=== PATIENT | male | born 1935 | race Caucasian/White ===

== ENCOUNTER 2020-01-18 06:24 | Outpatient (CLI) | payer MEDICARE, OTHER, SELFPAY ==
[2020-01-18 16:20] LABS: SARS-CoV-2 RNA PCR Negative
== END 2020-01-18 06:25 | disposition home or self-care (01) ==
LOC: ANHCOVIDDT 06:26
PROVIDERS: PCP Internal Medicine; Visit Provider Internal Medicine Gastroenterology
DX: Z01.818 Encounter for other preprocedural examination (principal); Z11.59 Encounter for screening for other viral diseases; R19.4 Change in bowel habit
CPT/HCPCS: 87635; C9803; U0003

== ENCOUNTER 2020-01-21 00:06 | Day surgery (SDC) | payer MEDICARE, OTHER, SELFPAY ==
[2020-01-16 09:10] VITALS: BMI 27.4
[2020-01-21] MEDS: LACTATED RINGERS 1,000 ML 150 ML IV CONT (06:23)
[2020-01-21 06:32] VITALS: BP 134/104; PULSE 62; RESP 16; TEMP 36.8; O2SAT 99
--- NOTE | 2020-01-21 06:46 | WPDANESEPPF ---
Anes - Initial Pre Proc Eval Procedure: Operation Date: 01/21/20 07:30 Proposed Procedures p Colonoscopy - Trace Silva MD Date/Time: 01/21/20 06:46 Surgeon: Trace Silva MD Pre Op Diagnosis: CHANGE IN BOWEL HABITS, HISTORY OF COLON POLYPS Patient Data Age: 84 Gender: M Height: 5 ft 8 in Weight: 81 kg Last Vital Signs Temp 36.8 C 01/21/20 06:32 Pulse 62 01/21/20 06:32 Resp 16 01/21/20 06:32 BP 134/104 H 01/21/20 06:32 Pulse Ox 99 01/21/20 06:32 Allergies Allergy/AdvReac Type Severity Reaction Status Date / Time No Known Allergies Allergy Verified 01/16/20 09:01 Home Medications Medication Instructions Recorded Confirmed Type aspirin 81 mg tablet,delayed 81 mg PO DAILY 09/03/19 01/16/20 History release losartan 100 1 tablet PO DAILY 09/03/19 01/16/20 History mg-hydrochlorothiazide 12.5 mg tablet mecobalamin (vitamin B12) 1,000 1,000 mcg SUBLINGUAL DAILY 09/03/19 01/21/20 History mcg disintegrating tablet,sublingual zolpidem 10 mg tablet PO PRN 09/03/19 09/11/19 History latanoprost 0.005 % eye drops 1 drop EACH EYE DAILY 09/11/19 01/16/20 History pravastatin 40 mg tablet 40 mg PO DAILY 09/11/19 01/16/20 History vit C 250 mg-E 200 unit-zinc 40 1 tablet PO DAILY cap 09/11/19 01/16/20 History mg-copper 1 pe-mdduzb-eydgle capsule Patient hx anesthesia problems: none Family hx anesthesia problems: none PMFSH Past Medical History Medical History Essential hypertension Hypercholesteremia Lightheadedness Right bundle branch block Sinus bradycardia TIA (transient ischemic attack) Surgical History Surgical History History of ear surgery History of tonsillectomy S/P TURP Family History Family History Other Hypertension Social History Social History Smoking status: Never smoker Alcohol intake: current Gender identity (if verbalized by the patient): Male Anes - Eval Final PreProcedure Day of Procedure 01/21/20 06:46 Patient weight: overweight Heart: regular rate and rhythm Lungs: clear to auscultation Airway: Mallampati scale class II Neurological: alert and oriented Last oral intake: >/= 8 hours ASA classification: III Emergent: no Anesthetic plan: proceed Anesthesia type and monitoring: general GIVS and standard monitoring Informed Consent: The patient's anesthetic plan and its attendant risks and benefits were discussed with the patient/family/POA. Questions were solicited and answers provided to the satisfaction of the patient/family/POA.
--- NOTE | 2020-01-21 07:23 | WPDGICN ---
Assessment and Plan Assessment and plan (1) Encounter for diagnostic colonoscopy due to change in bowel habits: Code(s): R19.4 - Change in bowel habit Status: Acute Assessment and Plan: Plan is for colonoscopy to assess change in bowel habits. Stool softeners and laxatives are occurred in the interim period (2) History of colon polyps: Code(s): Z86.010 - Personal history of colonic polyps Status: Acute Assessment and Plan: colonoscopy will be performed to assess for recurrent colon polyps. (3) Essential hypertension: Code(s): I10 - Essential (primary) hypertension Status: Acute GI Consult Note Consult date/time: 01/21/20 07:23 HPI: Shamar Hagen is a 84 year old male Seen in evaluation at the request of Dr. Yazan Beltre. Patient reports a 6 month difficulty with bowel habits. He states he has to strain. He notices a decreased caliber in the size of his stools. He denies any bleeding. His weight has remained stable. Stool caliber is less. Patient's past history is significant for colon polyps in approximately 2013. Patient's family history is noncontributory. Past history is significant for elevated cholesterol. In hypertension. Recent lab work revealed very mild normochromic normocytic anemia. Review of Systems Review of Systems: All systems reviewed & are unremarkable except as noted in HPI and below PMFSH Past Medical History Medical History Essential hypertension Hypercholesteremia Lightheadedness Right bundle branch block Sinus bradycardia TIA (transient ischemic attack) Surgical History Surgical History History of ear surgery History of tonsillectomy S/P TURP Family History Family History Other Hypertension Social History Social History Smoking status: Never smoker Alcohol intake: current Gender identity (if verbalized by the patient): Male Meds Home Medications and Allergies Home Medications Medication Instructions Recorded Confirmed Type aspirin 81 mg tablet,delayed 81 mg PO DAILY 09/03/19 01/16/20 History release losartan 100 1 tablet PO DAILY 12/23/19 05/06/20 History mg-hydrochlorothiazide 12.5 mg tablet mecobalamin (vitamin B12) 1,000 1,000 mcg SUBLINGUAL DAILY 09/03/19 01/21/20 History mcg disintegrating tablet,sublingual zolpidem 10 mg tablet PO PRN 09/03/19 09/11/19 History latanoprost 0.005 % eye drops 1 drop EACH EYE DAILY 09/11/19 01/16/20 History pravastatin 40 mg tablet 40 mg PO DAILY 09/11/19 01/16/20 History vit C 250 mg-E 200 unit-zinc 40 1 tablet PO DAILY cap 09/11/19 01/16/20 History mg-copper 1 si-ijgkxa-bphvme capsule Allergies Allergy/AdvReac Type Severity Reaction Status Date / Time No Known Allergies Allergy Verified 01/16/20 09:01 Vital Signs Vital Signs - 24 hr 01/21/20 06:32 Temperature 36.8 C Pulse Rate 62 Respiratory Rate 16 Blood Pressure 134/104 H Pulse Oximetry 99 Exam Narrative: Exam Narrative: Physical exam reveals Vital Signs to be stable. HEENT exam unremarkable. He is anicteric. Lungs are clear to auscultation and percussion. Heart is without murmur or extra sounds. Abdominal exam bowel sounds are present soft nontender with no hepatosplenomegaly. Digital external rectal exam normal.
[2020-01-21 07:46] VITALS: BP 93/47; PULSE 56; RESP 14; O2SAT 99
[2020-01-21 07:55] VITALS: BP 113/56; PULSE 49; RESP 18; O2SAT 97
[2020-01-21 08:08] VITALS: BP 127/58; PULSE 48; RESP 16; O2SAT 100
== END 2020-01-21 08:30 | disposition home or self-care (01) ==
PROVIDERS: PCP Internal Medicine; Visit Provider Internal Medicine Gastroenterology
PROC: 0DJD8ZZ Inspection of Lower Intestinal Tract, Via Natural or Artificial Opening Endoscopic (ICD-10-PCS; CPT 45378; principal; 2020-01-21 07:30)
DX: R19.4 Change in bowel habit (principal); K57.30 Diverticulosis of large intestine without perforation or abscess without bleeding; K64.8 Other hemorrhoids; Z86.010 Personal history of colon polyps; I10 Essential (primary) hypertension; E78.00 Pure hypercholesterolemia, unspecified; I45.10 Unspecified right bundle-branch block; Z86.73 Personal history of transient ischemic attack (TIA), and cerebral infarction without residual deficits; Z79.82 Long term (current) use of aspirin
CPT/HCPCS: 45378; J2405; J2704; J7120

== ENCOUNTER 2020-04-15 12:28 | Outpatient (CLI) | payer MEDICARE, OTHER, SELFPAY ==
--- NOTE | ~2020-04-15 | US_ITS ---
EXAMINATION: US carotid duplex BI EXAM DATE: 04/15/2020 13:16 INDICATION: Carotid bruit. TECHNIQUE: Grayscale, color and pulsed Doppler images of the cervical carotid arteries were obtained . The degree of vessel stenosis is placed in one of the following categories: normal, <50% stenosis, 50-69% stenosis, >=70% stenosis but less than near-occlusion, near-occlusion, or occlusion. Note that percent stenosis relative to normal distal artery lumen diameter is indirectly measured from velocit y measurements as described by Rakesh, et al. Radiology 2003; 229:340-346. Comparison is made to prior examination from 03/10/2019. FINDINGS: RIGHT SIDE: Right common carotid artery peak systolic velocity (PSV in cm/s): 116 Right bulb/internal carotid artery peak systolic velocity (PSV in cm/s): 132 Right internal carotid artery end diastolic velocity (EDV in cm/s): 21 Right ICA/CCA peak systolic ratio: 1.1 Right external carotid artery peak systolic velocity (PSV in cm/s): 165 Right vertebral artery antegrade flow: yes There is minimal carotid bulb plaque. Velocity and Doppler waveforms in the common and internal carotid arteries is normal. LEFT SIDE: Left common carotid artery peak systolic velocity (PSV in cm/s): 123 Left bulb/internal carotid artery peak systolic velocity (PSV in cm/s): 116 Left internal carotid artery end diastolic velocity (EDV in cm/s): 14 Left ICA/CCA peak systolic ratio: 0.9 Left external carotid artery peak systolic velocity (PSV in cm/s): 114 Left vertebral artery antegrade flow: yes There is minimal carotid bulb plaque. Velocity and Doppler waveforms in the common and internal carotid arteries is normal. IMPRESSION: 1. Less than 50 percent stenosis in the right internal carotid artery. 2. Less than 50 percent stenosis in the left internal carotid artery. Reviewed, dictated and finalized at location A.
== END 2020-04-15 12:29 | disposition home or self-care (01) ==
PROVIDERS: PCP Internal Medicine; Visit Provider Psychiatry & Neurology Neurology
DX: R09.89 Other specified symptoms and signs involving the circulatory and respiratory systems (principal); I65.23 Occlusion and stenosis of bilateral carotid arteries
CPT/HCPCS: 93880

== ENCOUNTER 2021-03-28 12:36 | Outpatient (CLI) | payer MEDICARE, OTHER, SELFPAY ==
--- NOTE | ~2021-03-28 | MR_ITS ---
EXAMINATION: MR brain/brain stem wo con EXAM DATE: 03/28/2021 13:39 INDICATION: H53.461 - Homonymous bilateral field defects, right side. TECHNIQUE: Magnetic resonance imaging (MRI) of the brain/brain stem obtained without contrast. Chas al T1, axial diffusion, gradient echo (T2*), T1, T2, FLAIR sequences obtained. Comparison is made to prior examination from 03/13/2019. FINDINGS: Optic chiasm, pituitary gland and suprasellar region unremarkable. There are no areas of re stricted diffusion to suggest acute infarction. There is no acute hemorrhage seen on the T2*, a hemo siderin sensitive sequence. No intraparenchymal brain mass lesion. There is mild to moderate periven tricular and subcortical T2/FLAIR signal hyperintensity, nonspecific but probably related to small ve ssel ischemic disease (microangiopathy). Some dilated perivascular spaces in the basal ganglia. Ther e is mild prominence of the sulci and ventricles related to cerebral atrophy. There are no extra-ax ial collections. Flow voids are seen in the cerebral arteries on the T2-weighted sequences consisten t with their expected patency. Patient has had bilateral ocular lens surgery. Soft tissue is unrema rkable. IMPRESSION: 1. No acute intracranial findings. 2. Chronic age related findings. Reviewed, dictated and finalized at location A.
== END 2021-03-28 12:37 | disposition home or self-care (01) ==
LOC: ANHIMG 12:37
PROVIDERS: PCP Internal Medicine; Visit Provider Psychiatry & Neurology Neurology
DX: H53.461 Homonymous bilateral field defects, right side (principal)
CPT/HCPCS: 70551

== ENCOUNTER 2023-03-02 13:30 | Outpatient (CLI) | payer MEDICARE, OTHER, SELFPAY ==
--- NOTE | 2023-03-02 13:33 | ECHO_ITS ---
Patient Info Name: Shamra Hagen Age: 87 years : 1935 Gender: Male Ht: 68 in Wt: 167 lbs BSA: 1.92 m2 HR: 54 bpm BP: 144 / 67 mmHg Heart Rhythm: Bradycardia Technical Quality: Good Exam Date: 03/02/2023 1:41 PM Exam Location: [facility] Pulmonary Patient Status: Outpatient Admit Date: 03/02/2023 Staff Ordering Physician: Yeni Gerber PA-C Specialist Managers: Nikki Brian RDCS Attending Provider: Yeni Gerber PA-C Referring Physician: Zabrina MCKEON; Exam Type: CA echo doppler color flow Study Info Indications - obstructive sleep apnea , dizziness and giddiness Complete two-dimensional, color flow and Doppler transthoracic echocardiogram is performed. Summary 1. Complete two-dimensional, color flow and Doppler transthoracic echocardiogram is performed. 2. Left ventricular chamber dimension is normal. 3. Left ventricular systolic function is hyperdynamic, estimated at >70%. 4. There is mild concentric increased left ventricular wall thickness. 5. The left ventricular diastolic function is grade I diastolic dysfunction. 6. E/e' 11 is mildly elevated. 7. Left atrial chamber dimension is mildly enlarged. 8. There is mild aortic valve sclerosis. 9. The mitral valve has mildly calcified leaflets and moderately calcified annulus. 10. There is mild tricuspid valve regurgitation. 11. No pulmonary hypertension, estimated pulmonary arterial systolic pressure is 28 mmHg. Left Ventricle E/e' 11 is mildly elevated. Left ventricular chamber dimension is normal. Left ventricular systolic function is hyperdynamic, estimated at >70%. There is mild concentric increased left ventricular wall thickness. The left ventricular diastolic function is grade I diastolic dysfunction. Right Ventricle Right ventricular systolic function is normal and with normal TAPSE 2.6 cm. Right ventricular chamber dimension is normal. Left Atria Left atrial chamber dimension is mildly enlarged. Right Atria Right atrial chamber dimension is normal. Aortic Valve The aortic valve is trileaflet. There is mild aortic valve sclerosis. There is no aortic valve stenosis. There is no aortic valve regurgitation. Pulmonic Valve There is no pulmonic regurgitation. Mitral Valve The mitral valve has mildly calcified leaflets and moderately calcified annulus. There is no mitral valve stenosis. There is no mitral valve regurgitation. Tricuspid Valve There is mild tricuspid valve regurgitation. No pulmonary hypertension, estimated pulmonary arterial systolic pressure is 28 mmHg. Pericardium/Pleural There is no pericardial effusion. Inferior Vena Cava Normal inferior vena cava with >50% collapse upon inspiration consistent with normal right atrial pressure, 5 mmHg. Aorta The aortic root size at the sinus of Valsalva is normal. Left Ventricular Outflow Tract Name Value Normal LVOT 2D LVOT Diameter 2.1 cm LVOT Doppler LVOT Peak Gradient 8 mmHg LVOT Mean Gradient 4 mmHg LVOT VTI 36 cm LVOT VTI/AV VTI Ratio 0.9 LVOT Stroke Volume 130 ml LVOT CO
--- NOTE | 2023-03-08 16:08 | WPDHOLTEREM ---
Holter/Event Monitor Holter/Event Monitor Date of procedure: 03/02/23 Holter/Event Procedure: 48 Hr Holter Monitor Indications: Dizziness Conclusion: 1. 48 hour holter monitor on 03/02/23. 2. Underlying rhythm is sinus rhythm. HR range 40-92 bpm; average 52 bpm. HR at 40 bpm was at 02:17. 3. There are 546 premature supraventricular complexes and 175 supraventricular couplets. No supraventricular tachycardia. 4. There are 2 premature ventricular complexes. No ventricular tachycardia. 5. No sinoatrial or atrioventricular blocks. No significant pauses greater than 2 seconds. 6. Patient reports symptoms of dizziness and unsteady which demonstrate sinus rhythm, HR range 52-58 bpm and 1 PAC.
== END 2023-03-02 13:31 | disposition home or self-care (01) ==
LOC: ANHCARD 13:30
PROVIDERS: PCP Physician Assistant Medical; Visit Provider Physician Assistant Medical
DX: D64.9 Anemia, unspecified (principal); R42 Dizziness and giddiness; G47.33 Obstructive sleep apnea (adult) (pediatric); I36.1 Nonrheumatic tricuspid (valve) insufficiency
CPT/HCPCS: 93225; 93226; 93306

== ENCOUNTER 2024-03-27 02:17 | Inpatient (IN) | payer MEDICARE, OTHER, SELFPAY ==
[2024-03-27] VITALS (13 sets, daily range): BP systolic 127–169; BP diastolic 43–64; PULSE 55–67; RESP 16–24; TEMP 36.2–36.7; O2SAT 95–100; BMI 25.8
--- NOTE | 2024-03-27 | ECHO_ITS ---
Patient Info Name: Shamar Hagen Age: 88 years : 1935 Gender: Male Ht: 68 in Wt: 169 lbs BSA: 1.93 m2 HR: 65 bpm BP: 145 / 61 mmHg Heart Rhythm: Sinus Rhythm Technical Quality: Fair Exam Date: 03/27/2024 12:50 PM Exam Location: Echo Lab Patient Status: Outpatient Admit Date: 03/27/2024 Staff Ordering Physician: Carlotta Cabral APRN Gaming Pit Boss: Radha Roche RDCS Attending Provider: Carlotta Cabral APRN Referring Physician: Misha SAMANO; Exam Type: CA echo dop color flow w con Study Info Indications - NSTEMI Complete two-dimensional, color flow and Doppler transthoracic echocardiogram is performed with contrast to opacify the left ventricle and to improve the deliniation of the left ventricle endocardial borders. Contrast/Agitated Saline Contrast/Ag. Saline: Definity Amount: 3.00 ml Summary 1. Definity contrast administered improved wall motion interpretation. 2. Left ventricular chamber dimension is normal. 3. Left ventricular systolic function is normal, estimated at 60-65%. 4. There is mild concentric increased left ventricular wall thickness. 5. The left ventricular diastolic function is abnormal. 6. E/e' 10 is mildly elevated. 7. There is moderate aortic valve sclerosis. 8. The mitral valve has severely calcified annulus and mildly calcified leaflets. 9. No pulmonary hypertension, estimated pulmonary arterial systolic pressure is 15 mmHg. Left Ventricle Definity contrast administered improved wall motion interpretation. E/e' 10 is mildly elevated. Left ventricular chamber dimension is normal. Left ventricular systolic function is normal, estimated at 60-65%. There is mild concentric increased left ventricular wall thickness. The left ventricular diastolic function is abnormal. Right Ventricle Right ventricular systolic function is normal and with normal TAPSE 2.3 cm. Right ventricular chamber dimension is normal. Left Atria Left atrial chamber dimension is normal. Right Atria Right atrial chamber dimension is normal. Aortic Valve The aortic valve is trileaflet. There is moderate aortic valve sclerosis. There is no aortic valve stenosis. There is no aortic valve regurgitation. Pulmonic Valve There is no pulmonic regurgitation. Mitral Valve The mitral valve has severely calcified annulus and mildly calcified leaflets. There is no mitral valve stenosis. There is no mitral valve regurgitation. Tricuspid Valve There is no tricuspid valve regurgitation. No pulmonary hypertension, estimated pulmonary arterial systolic pressure is 15 mmHg. Pericardium/Pleural There is no pericardial effusion. Inferior Vena Cava Normal inferior vena cava with >50% collapse upon inspiration consistent with normal right atrial pressure, 5 mmHg. Aorta The aortic root size at the sinus of Valsalva is normal. Left Ventricular Outflow Tract Name Value Normal LVOT 2D LVOT Diameter 2.01 cm LVOT Doppler LVOT Peak Gradient 4 mmHg LVOT Mean Gradient 2 mmHg LVOT VTI 28.86 cm LVOT VTI/AV VTI Ratio 1.19 LVOT Stroke Volu
--- NOTE | ~2024-03-27 | MR_ITS ---
EXAMINATION: MR brain/brain stem wo con DATE: 03/27/2024 16:35 INDICATION: Transient ischemic episode versus stroke TECHNIQUE: Magnetic resonance imaging (MRI) of the brain and brainstem was performed without intraven ous contrast. Sequences included sagittal and axial T1-weighted SE, axial diffusion-weighted FS SE, a xial 3D SWAN, axial T2-weighted FLAIR, and axial T2-weighted FSE. Apparent diffusion coefficient (ADC ) maps were created. COMPARISON: Brain MR dated 03/28/2021 FINDINGS: There are small areas of restricted diffusion at the medial aspect of the right cerebellar hemisphere and lateral aspect of the left cerebellar hemisphere consistent with acute infarcts. No intracranial hemorrhage or abnormal intracranial mass lesion. There are scattered areas of nonspecific increased T2-weighted signal intensity in the cerebral white matter, predominantly involving the deep and periv entricular white matter. There are no intraparenchymal signal abnormalities seen on the other pulse s equences. Symmetric prominence of the sulci and ventricles consistent with mild age-appropriate diffuse cerebra l volume loss. There are no abnormal extra-axial fluid collections. Flow voids are seen in the cerebr al arteries on the T2-weighted sequences consistent with their expected patency. Changes of bilateral intraocular lens replacement. Visualized orbits and soft tissues are unremarkable. Mild mucosal thic kening the bilateral ethmoid sinuses with mucous retention cyst along the medial wall the right maxil livia sinus. IMPRESSION: 1. Small acute infarcts in the bilateral cerebellar hemispheres. 2. Interval progression of age-related changes including mild diffuse volume scattered periventricula r predominant nonspecific white matter T2 hyperintensity consistent with chronic small vessel ischemi c disease. Reviewed, dictated and finalized at location A. IMPRESSION: 1. Small acute infarcts in the bilateral cerebellar hemispheres. 2. Interval progression of age-related changes including mild diffuse volume sc attered periventricular predominant nonspecific white matter T2 hyperintensity consistent with chronic small vessel ischemic disease.
--- NOTE | ~2024-03-27 | MR_ITS ---
MRA HEAD History: Brainstem stroke Technique: 3D time of flight MRA of the head is performed. Findings: The right and left distal vertebral arteries and the basilar and posterior cerebral arterie s are normal. Right and left distal internal carotid arteries and anterior and middle cerebral arteri es are normal. There is no aneurysm, stenosis, or occlusion. Impression: No occlusion, stenosis, or aneurysm. Reviewed, dictated and finalized at location . Impression: No occlusion, stenosis, or aneurysm.
--- NOTE | ~2024-03-27 | US_ITS ---
EXAMINATION: US carotid duplex BI DATE: 03/27/2024 11:57 INDICATION: TIA TECHNIQUE: Grayscale, color Doppler, and pulsed Doppler images of the cervical carotid arteries were obtained. The degree of vessel stenosis is placed in one of the following categories: normal, <50%, 5 0-69%, >=70% but less than near-occlusion, near-occlusion, or total occlusion. Note that percent sten osis relative to normal distal artery lumen diameter is indirectly measured from velocity measurement s as described by Rakesh, et al. Radiology 2003; 229:340-346. Notes: Normal: Peak systolic velocity <125 centimeters/sec and no plaque <50%. Peak systolic velocity <125 ( EDV <40; ICA/CCA PSV ratio <2.0; used these factors only a tandem lesions or low cardiac output or co ntralateral disease) 50-69 %: PSV 125-230 (EDV 40-100; ratio 2-4) >= 70% but less than near occlusion: PSV greater than 230 (EDV > 100; ratio> 4.0) Near Occlusion: PSV that is variable; markedly narrowed lumen Occlusion: Absent flow on color/spectral Doppler and no lumen on schaffer scale. COMPARISON: None. FINDINGS: RIGHT: The right common carotid artery (CCA) peak systolic velocity (PSV) is 102 cm/s. The right internal ca rotid artery (ICA) PSV is 127 cm/s. The right ICA end-diastolic velocity (EDV) is 25 cm/s. The right ICA/CCA PSV ratio is 1.2. The external carotid artery (ECA) PSV is 175 cm/s. There is antegrade flow in the right vertebral artery. LEFT: The left CCA PSV is 120 cm/s. The left ICA PSV is 72 cm/s. The left ICA EDV is 17 cm/s. The left ICA/ CCA PSV ratio is 0.6. The ECA PSV is 114 cm/s. There is antegrade flow in the left vertebral artery. IMPRESSION: 1. 50-69% stenosis in the right internal carotid artery by sonographic criteria. 2. Less than 50% stenosis in the left internal carotid artery by sonographic criteria. Reviewed, dictated and finalized at location B. IMPRESSION: 1. 50-69% stenosis in the right internal carotid artery by sonographic criteria . 2. Less than 50% stenosis in the left internal carotid artery by sonographic cr iteria.
--- NOTE | 2024-03-27 01:39 | ADMGEN ---
This patient, Shamar Hagen, was admitted to IMU Room 203-01. Patient/family oriented to hospital policies and general routines including ID bracelet, bed and alarms, visiting hours, pain management, procedures, bathroom and other care routines, personal items, smoking policy, room service/diet, and visiting hours. Information on how to activate the Rapid Response Team has been discussed. Patient/Family are encouraged to report perceived risks to care and to ask questions if they do not understand what they are told or what they should do. Patient arrived to the unit at 0135. Pt receiving heparin gtt at 9ml/hr.
--- NOTE | 2024-03-27 03:45 | ECG_ITS ---
Test Date: 2024-03-27 14:35:18 Measurements Intervals [place] Rate: 52 P: 27 AK: 169 QRS: 62 QRSD: 158 T: 19 QT: 454 QTc: 423 Interpretive Statements SINUS BRADYCARDIA RIGHT BUNDLE BRANCH BLOCK ABNORMAL ECG No previous ECG available for comparison Electronically Signed On 03-27-2024 15:06:23 CDT by Bang Solares D.O.
[2024-03-27 04:12] LABS: Basophils Percent Auto 0.2 % (0.2-1.2); Eosinophils Percent Auto 0.2 % (0-4.4); Hematocrit 31.9 % (42.0-52.0); Hemoglobin 10.8 g/dL (14.0-18.0); Immature Granulocyte Absolute 0.02 K/mm3 (0.00-0.031); Immature Granulocyte Percent A 0.2 % (0-0.5); Lymphocytes Absolute Auto 1.71 K/mm3 (0.9-3.2); Lymphocytes Percent Auto 20.9 % (18.3-44.2); Mean Corpuscular HGB Conc 33.9 g/dl (32-36); Mean Corpuscular Hemoglobin 31.3 pg (26-34); Mean Corpuscular Volume 92.5 fl (80-100); Mean Platelet Volume 9.6 fl (7.4-10.4); Monocytes Absolute Auto 0.9 K/mm3 (0.1-0.6); Monocytes Percent Auto 10.9 % (2.6-8.5); Neutrophils Absolute Auto 5.5 K/mm3 (1.3-6.7); Neutrophils Percent Auto 67.6 % (45.5-73.1); Platelet Count Result 227 k/mm3 (150-375); Red Blood Count 3.45 M/mm3 (4.6-6.20); Red Cell Distribution Width 14.3 % (11.5-14.5); White Blood Count 8.2 K/mm3 (4.5-10.0)
[2024-03-27 04:28] LABS: Anion Gap 8 mmol/L (4-12); Blood Urea Nitrogen 26 mg/dL (9-20); Carbon Dioxide 22 mmol/L (22-30); Chloride 107 mmol/L (98-107); Estimated CRCL calculation 37 ml/min; Estimated Glomerular Filt Rate 57; Glucose 106 mg/dL (65-110); Magnesium 1.9 mg/dL (1.6-2.3); Potassium 4.1 mmol/L (3.4-5.0); Sodium 137 mmol/L (137-145)
[2024-03-27 04:29] LABS: INR 1.1; Prothrombin Time 14.7 Seconds (11.1-14.7)
[2024-03-27 04:32] LABS: Partial Thromboplastin Time 52.5 Seconds (22.3-36.8)
[2024-03-27] MEDS: DEXTROSE 5%/0.45% SOD CHL 1,000 ML 65 ML IV CONT (05:06)
[2024-03-27] MEDS: HEPARIN SOD/D5W 100 UNITS/ML 25,000 UNITS/250 ML BAG 9 UNITS IV CONT (05:56)
--- NOTE | 2024-03-27 08:55 | PM.IMHP ---
H&P: HPI History of Present Illness Date/Time: 03/27/24 08:55 Chief Complaint: Chest pain Narrative: This is an 88-year-old gentleman with a past medical history significant for hypertension, high cholesterol, and obstructive sleep apnea initially presented to an outside hospital emergency room with complaints of chest pain and abdominal pain. He was found have elevated troponins and they were concerns for an NSTEMI and required transfer to this facility for cardiology consult. He is a patient of Dr. Solares. The history is provided from the patient as well as chart review. Patient reports yesterday he went to the [facility] for his normal walk was uneventful. He then went for his physical therapy appointment at 1:00 p.m. and returned home around 2:00 p.m. when he started to have increased dizziness. He has been having recurrent dizziness for the last 2 years which is normally occurring with activity but the dizziness was occurring while he was at rest and it progressively got worse. He was also having a headache and his daughter reported that he was having some slurred speech. The patient says that he was having difficulty with word finding. As far as he knows he did not have any facial drooping, vision changes, or unilateral weakness. He reports that his symptoms resolved when he arrived to the hospital at [place]. He then experienced some severe mid abdominal cramping, aching pain. He also describes this left chest versus axillary muscle discomfort which he describes as achy and constant. He does report some minimal shortness of breath with increased activity. Normally he is able to walk 2-3 miles a day applied over the last few months he has noticed that after walking half a mile he has to stop and rest for less than 5 minutes to catch his breath. He denies orthopnea, lower extremity edema, or abdominal distention. Last bowel movement was 7-15 which was normal and he has good urine output. In the ER at the outside facility EKG showed sinus bradycardia with a rate of 56 in the right bundle branch block without obvious findings of ACS. His troponin was elevated at 371. He received aspirin, IV fluids, morphine, and Zofran. CTA was completed and showed no evidence of aortic dissection or pulmonary embolism. CTA did show incidental finding of heterogeneous attenuation of bone marrow suggestive of chronic disease versus anemia versus myeloproliferative or diffuse metastatic disease. Repeat troponin was 460 and patient was started on a heparin gtt. Cardiology was consulted and the patient was transferred to [facility] and admitted to the hospitalist service. Review of Systems Review of Systems: All systems reviewed & are unremarkable except as noted in HPI and below PMFSH Past Medical History Medical History Anemia Essential hypertension Hypercholesteremia Insomnia Lightheadedness Numbness in feet Right bundle branch block Sinus bradycardia TIA (transient ischemic attack) 2019 Vitamin B12 deficiency Surgical History Surgical History History of ear surgery History of tonsillectomy S/P TURP Family History Family History Mother Hypertension Social History Social History (Updated 03/27/24 @ 10:40 by Carlotta Cabral APRN) Social History: Patient lives with his daughter Laurita Hagen who is designated as his emergency contact. He has 3 other children. He is . Smoking status: Never smoker Alcohol intake: current Drinks per week: 1 Alcohol use details: rarely, monthly Substance use: never Substance use type: does not use Do You Feel Safe in your Home?: Yes Lack of Transportation: No Lack of Food: Never True Current Housing: I Have Housing Concerned About Future Housing: No Difficulty Paying Gas/Electric Bills: No Difficulty Payin
[2024-03-27] MEDS: CYANOCOBALAMIN 1,000 MCG TABLET 1000 MCG PO (10:30)
[2024-03-27] MEDS: PRAVASTATIN SODIUM 20 MG TABLET 40 MG PO (10:30)
[2024-03-27] MEDS: LOSARTAN POTASSIUM 100 MG TABLET PO (10:30)
[2024-03-27] MEDS: ASPIRIN 81 MG ENTERIC TABLET PO (10:30)
[2024-03-27] MEDS: amLODIPine BESYLATE 10 MG TABLET PO (10:31)
[2024-03-27] MEDS: LATANOPROST 0.005% OP SOLN 2.5 ML BTL 1 DROP EACH EYE (10:31)
[2024-03-27] MEDS: hydrALAZINE HCL 25 MG TABLET PO ×2 (10:31→21:58)
--- NOTE | 2024-03-27 10:32 | PM.CNCAR ---
Assessment and Plan Assessment and plan (1) Elevated troponin: Code(s): R79.89 - Other specified abnormal findings of blood chemistry Status: Acute Assessment and Plan: At the OSH ED, workup showed elevated troponins of 371 followed by 460 (reference range of <76). Troponins here are pending. EKG at OSH with sinus bradycardia, RBBB (which is chronic for the patient). No chest pain. His symptoms are more concerning for TIA rather than an acute coronary syndrome. Recommend workup for TIA/CVA. Will check troponin levels here, obtain transthoracic echocardiogram. Patient was started on Heparin drip at OSH ED, however, will hold that for now while undergoing TIA/CVA workup in case he did have an acute CVA. (2) TIA (transient ischemic attack): Code(s): G45.9 - Transient cerebral ischemic attack, unspecified Status: Acute Assessment and Plan: As above. Has history of TIA in the past. Continue ASA and statin. (3) Essential hypertension: Code(s): I10 - Essential (primary) hypertension Status: Acute Assessment and Plan: Stable. Continue home antihypertensive agents. (4) Dyslipidemia: Code(s): E78.5 - Hyperlipidemia, unspecified Status: Acute Assessment and Plan: Continue statin. (5) PRASANTH (obstructive sleep apnea): Code(s): G47.33 - Obstructive sleep apnea (adult) (pediatric) Status: Acute Plan Recommendations and plan discussed with Hospitalist. History of Present Illness History of Present Illness Consult date/time: 03/27/24 10:32 Requesting physician: Carlotta Cabral APRN Consult reason: Other (Elevated troponins ) Reason For Visit: NSTEMI Narrative: We are consulted for elevated troponins. This is an 88 year old male with hypertension, dyslipidemia, obstructive sleep apnea, history of TIA who sees Dr. Solares. [facility] Cardiology seeing this patient as Dr. Solares is currently off. Patient reports that he had sudden onset dizziness that continued to persist. No chest pain, some chest irritation, but was brief. Had speech difficulties. He knew what words he wanted to say, but speech was coming out jumbled and slurred. Generalized weakness, but no focal deficits noted. He had similar symptoms when he had his TIA in the past. His symptoms resolved upon arrival to the ED, and he is currently feeling well. Does report some back neck pain. No chest pain, shortness of breath, ongoing issues with speech. At the OSH ED, workup showed elevated troponins of 371 followed by 460 (reference range of <76). Troponins here are pending. EKG at OSH with sinus bradycardia, RBBB (which is chronic for the patient). Review of Systems Review of Systems: All systems reviewed & are unremarkable except as noted in HPI and below (HPI) [facility] Past Medical History Medical History Anemia Essential hypertension Hypercholesteremia Insomnia Lightheadedness Numbness in feet Right bundle branch block Sinus bradycardia TIA (transient ischemic attack) 2019 Vitamin B12 deficiency Surgical History Surgical History History of ear surgery History of tonsillectomy S/P TURP Family History Family History Mother Hypertension Social History Social History Social History: Patient lives with his daughter Laurita Hagen who is designated as his emergency contact. He has 3 other children. He is . Smoking status: Never smoker Alcohol intake: current Drinks per week: 1 Alcohol use details: rarely, monthly Substance use: never Substance use type: does not use Do You Feel Safe in your Home?: Yes Lack of Transportation: No Lack of Food: Never True Current Housing: I Have Housing Concerned About Future Housing: No Difficulty Paying Gas/Electric Bills: No
--- NOTE | 2024-03-27 10:36 | ECG_ITS ---
Test Date: 2024-03-27 17:14:38 Measurements Intervals [place] Rate: 68 P: 0 TN: 0 QRS: 31 QRSD: 117 T: 37 QT: 400 QTc: 427 Interpretive Statements ATRIAL FIBRILLATION INCOMPLETE RIGHT BUNDLE BRANCH BLOCK ABNORMAL ECG Compared to ECG 03/27/2024 14:35:18 ATRIAL FIBRILLATION NOW PRESENT Electronically Signed On 03-28-2024 07:32:13 CDT by Bang Solares D.O.
[2024-03-27 11:23] LABS: Cholesterol 123 mg/dL (0-200); HDL Direct 54 mg/dL; Triglycerides 75 mg/dL (<150)
[2024-03-27 11:34] LABS: LDL Cholesterol Direct 56 mg/dL
[2024-03-27] MEDS: PERFLUTREN LIPID MICROSPHERES 1.5 ML VIAL DILUTED TO 10 ML TOTAL VOLUME IV PUSH (12:50)
--- NOTE | 2024-03-27 14:39 | IVDEFINITY ---
Prior to administration of IV Definity the patient was educated on the risks and benefits of the imaging enhancing agent including potential adverse side effects. The patient verbalized understanding. Allergies were verified. No exclusion criteria were identified and at least one of the following inclusion criteria were met: 1) physician request, 2) patient technically difficult to image (per the [place] [employer] guidelines of two or more segments not discernable within the apical view), or 3) questionable left ventricular function. ?
[2024-03-27] MEDS: LORazepam (*CRX) 0.5 MG TABLET PO (16:05)
--- NOTE | 2024-03-27 16:40 | PC.NURSE ---
Patient received from IMU room 203. Patient and family oriented to the room.
[2024-03-27] MEDS: ZOLPIDEM TARTRATE (*CRX) 5 MG TABLET 10 MG PO (21:58)
[2024-03-28] VITALS (11 sets, daily range): BP systolic 109–147; BP diastolic 48–63; PULSE 56–66; RESP 15–20; TEMP 36.4–36.6; O2SAT 95–98
[2024-03-28 07:57] LABS: Alanine Aminotransferase 20 U/L (6-50); Alkaline Phosphatase 77 U/L (38-126); Anion Gap 10 mmol/L (4-12); Aspartate Amino Transferase 30 U/L (17-59); Bilirubin,Total 1.1 mg/dL (0.2-1.3); Blood Urea Nitrogen 26 mg/dL (9-20); Calcium 9.3 mg/dL (8.4-10.2); Carbon Dioxide 23 mmol/L (22-30); Chloride 105 mmol/L (98-107); Estimated CRCL calculation 37 ml/min; Estimated Glomerular Filt Rate 57; Glucose 88 mg/dL (65-110); Magnesium 1.8 mg/dL (1.6-2.3); Potassium 3.9 mmol/L (3.4-5.0); Sodium 138 mmol/L (137-145)
[2024-03-28 08:05] LABS: Basophils Percent Auto 0.2 % (0.2-1.2); Eosinophils Absolute Auto 0.2 K/mm3 (0-0.3); Eosinophils Percent Auto 3.5 % (0-4.4); Hematocrit 36.5 % (42.0-52.0); Hemoglobin 12.1 g/dL (14.0-18.0); Immature Granulocyte Absolute 0.01 K/mm3 (0.00-0.031); Immature Granulocyte Percent A 0.2 % (0-0.5); Lymphocytes Percent Auto 26.4 % (18.3-44.2); Mean Corpuscular HGB Conc 33.2 g/dl (32-36); Mean Corpuscular Hemoglobin 30.9 pg (26-34); Mean Corpuscular Volume 93.4 fl (80-100); Mean Platelet Volume 10.1 fl (7.4-10.4); Monocytes Absolute Auto 0.7 K/mm3 (0.1-0.6); Monocytes Percent Auto 11.4 % (2.6-8.5); Neutrophils Absolute Auto 3.5 K/mm3 (1.3-6.7); Neutrophils Percent Auto 58.3 % (45.5-73.1); Platelet Count Result 250 k/mm3 (150-375); Red Blood Count 3.91 M/mm3 (4.6-6.20); Red Cell Distribution Width 14.3 % (11.5-14.5); White Blood Count 6.1 K/mm3 (4.5-10.0)
[2024-03-28] MEDS: ASPIRIN 81 MG ENTERIC TABLET PO (09:30)
[2024-03-28] MEDS: amLODIPine BESYLATE 10 MG TABLET PO (09:30)
[2024-03-28] MEDS: hydrALAZINE HCL 25 MG TABLET PO ×2 (09:30→20:55)
[2024-03-28] MEDS: PRAVASTATIN SODIUM 20 MG TABLET 40 MG PO (09:30)
[2024-03-28] MEDS: LOSARTAN POTASSIUM 100 MG TABLET PO (09:30)
[2024-03-28] MEDS: CYANOCOBALAMIN 1,000 MCG TABLET 1000 MCG PO (09:30)
--- NOTE | 2024-03-28 10:34 | PM.PNCARD ---
Progress Note: A&P Assessment and Plan (1) Acute CVA (cerebrovascular accident): Code(s): I63.9 - Cerebral infarction, unspecified Status: Acute Assessment and Plan: Brain MRI shows small acute infarcts in the bilateral cerebellar hemispheres. Recommend Neurology consultation. EKG obtained 03/27 shows rate-controlled AFIB. Suspect stroke may have been secondary to atrial fibrillation. Recommend starting Xarelto or Eliquis for stroke risk reduction whenever okay from a Neurology standpoint. (2) Atrial fibrillation: Code(s): I48.91 - Unspecified atrial fibrillation Status: Acute Assessment and Plan: New diagnosis for the patient. Was rate controlled when he was in AFIB. Already back in sinus rhythm. Echo shows normal LVEF Recommend starting Xarelto or Eliquis for stroke risk reduction whenever okay from a Neurology standpoint. Recommend a 30 day event monitor at time of discharge to assess for burden of atrial fibrillation (Patient can obtain this through Dr. Solares's office). (3) Elevated troponin: Code(s): R79.89 - Other specified abnormal findings of blood chemistry Status: Acute Assessment and Plan: At the OSH ED, workup showed elevated troponins of 371 followed by 460 (reference range of <76). Troponins here 0.5. EKG at OSH with sinus bradycardia, RBBB (which is chronic for the patient). No chest pain. His symptoms are more concerning for TIA/CVA rather than an acute coronary syndrome. Brain MRI did confirm an acute CVA, therefore, troponin elevation likely due to demand ischemia. Echo shows normal LVEF without appreciable RWMA. No additional workup needed for this. (4) Essential hypertension: Code(s): I10 - Essential (primary) hypertension Status: Acute Assessment and Plan: Stable. Continue home antihypertensive agents. (5) Dyslipidemia: Code(s): E78.5 - Hyperlipidemia, unspecified Status: Acute Assessment and Plan: On Pravastatin at home, however, given acute CVA, recommend changing this to a high intensity statin. Plan Cardiology will sign off at this time. Please call us back if needed. Patient to follow up with Dr. Solares after hospital discharge. Subjective Date/time seen: 03/28/24 10:34 Interval history: Reason for visit: Acute CVA, AFIB, elevated troponins HPI: We are consulted for elevated troponins. This is an 88 year old male with hypertension, dyslipidemia, obstructive sleep apnea, history of TIA who sees Dr. Solares. [facility] Cardiology seeing this patient as Dr. Solares is currently off. Patient reports that he had sudden onset dizziness that continued to persist. No chest pain, some chest irritation, but was brief. Had speech difficulties. He knew what words he wanted to say, but speech was coming out jumbled and slurred. Generalized weakness, but no focal deficits noted. He had similar symptoms when he had his TIA in the past. His symptoms resolved upon arrival to the ED, and he is currently feeling well. Does report some back neck pain. No chest pain, shortness of breath, ongoing issues with speech. At the OSH ED, workup showed elevated troponins of 371 followed by 460 (reference range of <76). Troponins here are pending. EKG at OSH with sinus bradycardia, RBBB (which is chronic for the patient). Date of service 03/28: EKG obtained yesterday shows atrial fibrillation, patient currently in sinus on tele. Feels okay today otherwise. Review of Systems Review of Systems: All systems reviewed & are unremarkable except as noted in HPI and below (HPI) Exam Const: General: comfortable and no acute distress HENMT: Mouth: Yes moist mucous membranes Eyes: General: appearance normal, both eyes and all related structures Sclera: sclerae normal Resp: Effort & Inspection: normal respiratory effort Cardio: Rate: regular rate Rhythm: regular rhythm Skin: General skin exam: normal color Neuro: Speech: normal speech Psych: Mental
--- NOTE | 2024-03-28 11:25 | P.PNIM_ITS ---
Progress Note: A&P Assessment and Plan (1) TIA (transient ischemic attack): Code(s): G45.9 - Transient cerebral ischemic attack, unspecified Status: Acute Assessment and Plan: Patient reports increasing dizziness and expressive asphasia yesterday which was quickly resolved but caused him to present to OSH ED. History of TIA. * Concern for recurrent TIA * On ASA 81 mg, pravastatin 40 mg -will need to optimize therapy and switch to high intensity statin upon discharge * MRI brain * Bilateral carotid duplex * ECHO ordered * Telemetry * Lipid and hemoglobin A1C ordered (2) Chest pain: Code(s): R07.9 - Chest pain, unspecified Status: Acute Assessment and Plan: Chest pain with abdominal pain at OSH. Upon exam patient states he was not really having chest pain, rather left axillary musculoskeletal discomfort which is described as achy. * IMU admission with continuous cardiac monitoring * EKG showed SB rate 56 with right BBB without signs of ACS * Troponin was 371-->460 * He was loaded with ASA and started on a heparin gtt. Heparin gtt stopped as he is not having chest pain. Suspect troponin elevation was 2/2 demand from possible TIA. * ECHO ordered. Last ECHO from 03/02/2023 EF >70%, mild LVH, grade I diastolic dysfunction (E/e' 11), mild LAE, mod MAC, mild TR. 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 * accompanied occipital pain radiating to the temples, left ear pain/fullness and dizziness and disequilibrium * [facility] for acute on chronic otalgia * slow position changes * ECHO pending * PT/OT (4) Essential hypertension: Code(s): I10 - Essential (primary) hypertension Status: Acute Assessment and Plan: Patient is on amlodipine 10 mg, hydralazine 25 mg b.i.d., losartan 100 mg daily at home * Blood pressures reviewed running 140s to 160s over 60s * Continue home medications * Optimize blood pressure * Cardiology is consulted Plan Feeding: Heart healthy diet Analgesia: Tylenol versus morphine Thromboembolic prophylaxis: SCDs Disposition: 88-year-old gentleman who presented to an outside hospital with chest pain with concerns for NSTEMI he required transfer [facility] for Cardiology consult. Patient reported dizziness and expressive asphasia which is what made antonio mike present to the ED. Possible TIA. Stroke work up. He came from home where he lives with his daughter. Anticiapte discharge back home likely tomorrow. He can downgrade from IMU to med-tele. Code status was discussed with the patient. Conversation initiated by Dr Munoz with cardiology and I was present for discussion. Patient does not want to be full code and would prefer to be DNR/DNI. Code status will be updated. Advance Care Plan I have confirmed that the patient's Advanced Care Plan is present, code status is documented, or surrogate decision maker is listed in patient medical record.: Yes Medication Reconciliation I have utilized all available resources to obtain, update and review the patients current medications (includes all prescriptions, OTC, herbals, cannabis, and nutritional supplements).: Yes Time Spent With Patient Time with patient: 25 - 35 minutes Subjective Date/time seen: 03/28/24 11:25 Interval
--- NOTE | 2024-03-28 11:25 | PM.IMPN ---
Progress Note: A&P Assessment and Plan (1) TIA (transient ischemic attack): Code(s): G45.9 - Transient cerebral ischemic attack, unspecified Status: Acute Assessment and Plan: Patient reports increasing dizziness and expressive asphasia yesterday which was quickly resolved but caused him to present to OSH ED. History of TIA. Concern for recurrent TIA On ASA 81 mg, pravastatin 40 mg -will need to optimize therapy and switch to high intensity statin upon discharge MRI brain Bilateral carotid duplex ECHO ordered Telemetry Lipid and hemoglobin A1C ordered (2) Chest pain: Code(s): R07.9 - Chest pain, unspecified Status: Acute Assessment and Plan: Chest pain with abdominal pain at OSH. Upon exam patient states he was not really having chest pain, rather left axillary musculoskeletal discomfort which is described as achy. IMU admission with continuous cardiac monitoring EKG showed SB rate 56 with right BBB without signs of ACS Troponin was 371-->460 He was loaded with ASA and started on a heparin gtt. Heparin gtt stopped as he is not having chest pain. Suspect troponin elevation was 2/2 demand from possible TIA. ECHO ordered. Last ECHO from 03/02/2023 EF >70%, mild LVH, grade I diastolic dysfunction (E/e' 11), mild LAE, mod MAC, mild TR. Tylenol, Morphine, Zofran Stat EKG PRN for recurrent chest pain Cardiology is consulted and rec's are appreciated (3) Dizziness: Code(s): R42 - Dizziness and giddiness Status: Acute Assessment and Plan: Persistent recent problem for which he has seen his PCP, partner, and physical therapy outpatient. accompanied occipital pain radiating to the temples, left ear pain/fullness and dizziness and disequilibrium [facility] acute on chronic otalgia slow position changes ECHO pending PT/OT (4) Essential hypertension: Code(s): I10 - Essential (primary) hypertension Status: Acute Assessment and Plan: Patient is on amlodipine 10 mg, hydralazine 25 mg b.i.d., losartan 100 mg daily at home Blood pressures reviewed running 140s to 160s over 60s Continue home medications Optimize blood pressure Cardiology is consulted Plan Feeding: Heart healthy diet Analgesia: Tylenol versus morphine Thromboembolic prophylaxis: SCDs Disposition: 88-year-old gentleman who presented to an outside hospital with chest pain with concerns for NSTEMI he required transfer [facility] for Cardiology consult. Patient reported dizziness and expressive asphasia which is what made him present to the ED. Possible TIA. Stroke work up. He came from home where he lives with his daughter. Anticiapte discharge back home likely tomorrow. He can downgrade from IMU to med-[facility]. Code status was discussed with the patient. Conversation initiated by Dr Munoz with cardiology and I was present for discussion. Patient does not want to be full code and would prefer to be DNR/DNI. Code status will be updated. Advance Care Plan I have confirmed that the patient's Advanced Care Plan is present, code status is documented, or surrogate decision maker is listed in patient medical record.: Yes Medication Reconciliation I have utilized all available resources to obtain, update and review the patients current medications (includes all prescriptions, OTC, herbals, cannabis, and nutritional supplements).: Yes Time Spent With Patient Time with patient: 25 - 35 minutes Subjective Date/time seen: 03/28/24 11:25 Interval history: This is an 88-year-old gentleman with a past medical history significant for hypertension, high cholesterol, and obstructive sleep apnea initially presented to an outside hospital emergency room with complaints of chest pain and abdominal pain. He was found have elevated troponins and they were concerns for an NSTEMI and required transfer to this facility for cardiology consult. He is a patient of
--- NOTE | 2024-03-28 11:30 | WPDNEURCNPN ---
Assessment and Plan Assessment and plan (1) Atrial fibrillation: Code(s): I48.91 - Unspecified atrial fibrillation Status: Acute (2) Acute CVA (cerebrovascular accident): Code(s): I63.9 - Cerebral infarction, unspecified Status: Acute (3) Dizziness: Code(s): R42 - Dizziness and giddiness Status: Acute Plan 1. Atrial fibrillation 2. TIA 3. History of otherwise ongoing positional dizziness as well which could be related to the benign positional vertigo which patient is completely aware and hopefully would be able to differentiate from the acute cardiac origin dizziness but again Emphasized to him very well and advised if any time dizziness is somewhat unusual contact the right of way worker but as for the treatment is concerned he keep taking the Xarelto or Eliquis what ever the medication is started during this hospitalization. 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 Presented strokes obviously happen in the posterior circulation on an embolic basis. Consult date: 03/28/24 HPI: Shamar Hagen is a 88 year old male Admitted to the hospital on transfer from the other institution ,patient carries the diagnosis of hypertension, hypercholesterolemia, obstructive sleep apnea, and he initially presented with complaints of chest pain and abdominal pain to other institution where he was found to have elevated troponin, triggering the possibility of non STEMI was transferred to this institution for cardiology consultation. As per the information available from him he went to [facility] for his normal walk which was un event full but then he went for the physical therapy appointment around 1:00 p.m. and return around 2:00 p.m. when he started having dizziness, he reported that he has been having recurrent dizziness over the last 2 years which is normally with activity but this time it was happening when he was at rest and progressively getting worse he was noted to have slurred speech by his daughter along with the complaints of headache and difficulties in finding the right word but without any facial drooping without any visual changes or weakness of 1 or other upper or lower extremity, symptomatology resolved when he arrived to the hospital at [place] but by the time he developed severe abdominal cramping and aching pain he was having difficulties in breathing and in the ER he was noted to have bradycardia on EKG with right bundle branch block ,troponin was 371 ,he received aspirin IV fluids morphine ,Zofran CTA revealed no evidence of aortic dissection or pulmonary embolism but did mention attenuation of bone marrow suggesting the chronic disease versus anemia or myeloproliferative process, he was started on heparin drops ,his repeat troponin was 460 .l He currently drinks alcohol never a smoker, his home medications include aspirin 81mg daily zolpidem 10mg HS p.r.n. amlodipine 10mg daily hydralazine 25mg twice a day, losartan 100mg daily and pravastatin 40mg daily, his initial vital signs were blood pressure 169/61 and exam in the emergency room was grossly nonfocal neurologically. Since admission cardiology consultation has been obtained for the elevated troponin he was documented to have the sinus bradycardia with right bundle branch block. Carotid Doppler study revealed 50 to 69% stenosis in the right internal carotid artery and less than 50% in the left internal carotid artery with MRI showing small acute infarct in the bilateral cerebellar hemisphere, repeat EKG on 03/27 with rate controlled AFib raising the possibility of the stroke secondary to atrial fibrillation. Neurologic consultation has been obtained because of the recent findings. [facility] Past Medical History Medical History Anemia Essential hypertension Hypercholesteremia Insomnia Lightheade
--- NOTE | 2024-03-28 12:13 | WPDNEURCNPN ---
Consult date: 03/28/24 HPI: Shamar Hagen is a 88 year old male [facility] Past Medical History Medical History Anemia Essential hypertension Hypercholesteremia Insomnia Lightheadedness Numbness in feet Right bundle branch block Sinus bradycardia TIA (transient ischemic attack) 2019 Vitamin B12 deficiency Surgical History Surgical History History of ear surgery History of tonsillectomy S/P TURP Family History Family History Mother Hypertension Social History Social History Social History: Patient lives with his daughter Laurita Hagen who is designated as his emergency contact. He has 3 other children. He is . Smoking status: Never smoker Alcohol intake: current Drinks per week: 1 Alcohol use details: rarely, monthly Substance use: never Substance use type: does not use Do You Feel Safe in your Home?: Yes Lack of Transportation: No Lack of Food: Never True Current Housing: I Have Housing Concerned About Future Housing: No Difficulty Paying Gas/Electric Bills: No Difficulty Paying for Meds: No Currently Unemployed: No Education: Grade School Difficulty w/ Childcare or Family Care: No Living arrangements: with family Additional living arrangements comments: Lives with his daughter Occupation/Education: retired 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/education comments: 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 Gender identity (if verbalized by the patient): Male Spiritual care concerns: Yes Meds Home Medications and Allergies Home Medications Medication Instructions Recorded Confirmed Type aspirin 81 mg tablet,delayed 81 mg PO DAILY 09/03/19 03/27/24 History release (Adult Low Dose Aspirin) mecobalamin (vitamin B12) 1,000 1,000 mcg sublingual DAILY 09/03/19 03/27/24 History mcg disintegrating tablet,sublingual zolpidem 10 mg tablet 10 mg PO QHS #30 tabs 11/16/23 03/27/24 Rx amlodipine 10 mg tablet 10 mg PO DAILY 02/27/24 03/27/24 History hydralazine 25 mg tablet 25 mg PO BID 02/27/24 03/27/24 History latanoprost 0.005 % eye drops 1 drp ophthalmic (eye) DAILY 02/27/24 03/27/24 History losartan 100 mg tablet 100 mg PO DAILY 02/27/24 03/27/24 History pravastatin 40 mg tablet 40 mg PO DAILY #90 tabs 03/20/24 03/27/24 Rx Allergies Allergy/AdvReac Type Severity Reaction Status Date / Time No Known Allergies Allergy Verified 02/28/24 13:14 Vital Signs Vital Signs - 24 hr 03/27/24 16:00 03/27/24 16:52 03/27/24 20:00 Temperature Pulse Rate 55 L 60 62 Respiratory Rate Blood Pressure Pulse Oximetry Oxygen Delivery 03/27/24 20:00 03/27/24 20:00 03/27/24 23:41 Temperature 36.2 C L 36.4 C Pulse Rate 56 L 56 L Respiratory Rate 18 20 Blood Pressure 135/55 L 127/52 L Pulse Oximetry 97 98 Oxygen Delivery Room Air 03/28/24 00:18 03/28/24 04:00 03/28/24 06:00 Temperature 36.6 C Pulse Rate 66 62 58 L Respiratory Rate 20 Blood Pressure 147/57 H Pulse Oximetry 98 Oxygen Delivery 03/28/24 08:00 03/28/24 09:37 Temperature 36.4 C L Pulse Rate 62 Respiratory Rate 15 Blood Pressure 130/63 Pulse Oximetry 95 Oxygen Delivery Room Air Results Labs 03/28/24 07:25 03/28/24 07:25 Labs: Short CBC 03/28/24 Range/Units 07:25 WBC 6.1 (4.5-10.0) K/mm3 Hgb 12.1 L (14.0-18.0) g/dL Hct 36.5 L (42.0-52.0) % Plt Count 250 (150-375) k/mm3 [facility] 03/28/24 07:25 Sodium 138 Potassium 3.9 Chloride 105 Carbon Dioxide 23 BUN 26 H Creatinine 1.20 Glucose 88 Calcium 9.3 Liver Function 03/28/24 Range/Units 07:25 Total Bilirubin 1.1 (0.2-1.3) mg/dL AST 30 (17-59) U/L ALT 20 (6-50) U/L Alkaline Phosphatase 77 (38-126) U/L Albumin 4.0 (3.5-5.1) g/
[2024-03-28] MEDS: LATANOPROST 0.005% OP SOLN 2.5 ML BTL 1 DROP EACH EYE (12:45)
[2024-03-29] VITALS (9 sets, daily range): BP systolic 92–145; BP diastolic 50–91; PULSE 58–67; RESP 16–18; TEMP 36.4–36.8; O2SAT 97–100
[2024-03-29] MEDS: LORazepam INJ (*CRX) 2 MG/ML VIAL 1 MG IV PUSH (01:02)
[2024-03-29 05:47] LABS: Basophils Percent Auto 0.1 % (0.2-1.2); Eosinophils Percent Auto 0.1 % (0-4.4); Hematocrit 39.2 % (42.0-52.0); Hemoglobin 12.9 g/dL (14.0-18.0); Immature Granulocyte Absolute 0.02 K/mm3 (0.00-0.031); Immature Granulocyte Percent A 0.2 % (0-0.5); Lymphocytes Absolute Auto 0.99 K/mm3 (0.9-3.2); Lymphocytes Percent Auto 10.6 % (18.3-44.2); Mean Corpuscular HGB Conc 32.9 g/dl (32-36); Mean Corpuscular Hemoglobin 30.6 pg (26-34); Mean Corpuscular Volume 93.1 fl (80-100); Mean Platelet Volume 9.7 fl (7.4-10.4); Monocytes Absolute Auto 0.5 K/mm3 (0.1-0.6); Monocytes Percent Auto 5.1 % (2.6-8.5); Neutrophils Absolute Auto 7.8 K/mm3 (1.3-6.7); Neutrophils Percent Auto 83.9 % (45.5-73.1); Platelet Count Result 272 k/mm3 (150-375); Red Blood Count 4.21 M/mm3 (4.6-6.20); Red Cell Distribution Width 14.1 % (11.5-14.5); White Blood Count 9.3 K/mm3 (4.5-10.0)
[2024-03-29 06:04] LABS: Alanine Aminotransferase 25 U/L (6-50); Albumin Level 4.4 g/dL (3.5-5.1); Alkaline Phosphatase 88 U/L (38-126); Anion Gap 13 mmol/L (4-12); Aspartate Amino Transferase 39 U/L (17-59); Blood Urea Nitrogen 30 mg/dL (9-20); Calcium 9.5 mg/dL (8.4-10.2); Carbon Dioxide 23 mmol/L (22-30); Chloride 102 mmol/L (98-107); Estimated CRCL calculation 32 ml/min; Estimated Glomerular Filt Rate 48; Glucose 105 mg/dL (65-110); Magnesium 1.8 mg/dL (1.6-2.3); Potassium 4.3 mmol/L (3.4-5.0); Sodium 138 mmol/L (137-145)
[2024-03-29] MEDS: LOSARTAN POTASSIUM 100 MG TABLET PO (09:27)
[2024-03-29] MEDS: hydrALAZINE HCL 25 MG TABLET PO ×2 (09:27→20:06)
[2024-03-29] MEDS: PRAVASTATIN SODIUM 20 MG TABLET 40 MG PO (09:27)
[2024-03-29] MEDS: ASPIRIN 81 MG ENTERIC TABLET PO (09:27)
[2024-03-29] MEDS: CYANOCOBALAMIN 1,000 MCG TABLET 1000 MCG PO (09:27)
[2024-03-29] MEDS: amLODIPine BESYLATE 10 MG TABLET PO (09:27)
[2024-03-29] MEDS: LATANOPROST 0.005% OP SOLN 2.5 ML BTL 1 DROP EACH EYE (09:28)
--- NOTE | 2024-03-29 10:40 | P.PNIM_ITS ---
Progress Note: A&P Assessment and Plan (1) TIA (transient ischemic attack): Code(s): G45.9 - Transient cerebral ischemic attack, unspecified Status: Acute Assessment and Plan: Patient reports increasing dizziness and expressive asphasia yesterday which was quickly resolved but caused him to present to OSH ED. History of TIA. * Concern for recurrent TIA * On ASA 81 mg, pravastatin 40 mg -will need to optimize therapy and switch to high intensity statin upon discharge * MRI brain * Bilateral carotid duplex * ECHO ordered * Telemetry * Lipid and hemoglobin A1C ordered * 03/29- will stop pravastatin- and start rosuvastatin- high intensity statin- continue asa (2) Chest pain: Code(s): R07.9 - Chest pain, unspecified Status: Acute Assessment and Plan: Chest pain with abdominal pain at OSH. Upon exam patient states he was not real ly having chest pain, rather left axillary musculoskeletal discomfort which is described as achy. * IMU admission with continuous cardiac monitoring * EKG showed SB rate 56 with right BBB without signs of ACS * Troponin was 371-->460 * He was loaded with ASA and started on a heparin gtt. Heparin gtt stopped as he is not having chest pain. Suspect troponin elevation was 2/2 demand from possible TIA. * ECHO ordered. Last ECHO from 03/02/2023 EF >70%, mild LVH, grade I diastolic dysfunction (E/e' 11), mild LAE, mod MAC, mild TR. * Tylenol, Morphine, Zofran * Stat EKG PRN for recurrent chest pain * Cardiology is consulted and rec's are appreciated (3) Dizziness: Code(s): R42 - Dizziness and giddiness Status: Acute Assessment and Plan: Persistent recent problem for which he has seen his PCP, amusement ride operator, and physical therapy outpatient. * accompanied occipital pain radiating to the temples, left ear pain/fullness and dizziness and disequilibrium * follows with ENT at [facility] for acute on chronic otalgia * slow position changes * ECHO pending * PT/OT (4) Essential hypertension: Code(s): I10 - Essential (primary) hypertension Status: Acute Assessment and Plan: Patient is on amlodipine 10 mg, hydralazine 25 mg b.i.d., losartan 100 mg daily at home * Blood pressures reviewed running 140s to 160s over 60s * Continue home medications * Optimize blood pressure * Cardiology is consulted Plan Feeding: Heart healthy diet Analgesia: Tylenol versus morphine Thromboembolic prophylaxis: SCDs Disposition: 88-year-old gentleman who presented to an outside hospital with chest pain with concerns for NSTEMI he required transfer [facility] for Cardiology consult. Patient reported dizziness and expressive asphasia which is what made him present to the ED. Possible TIA. Stroke work up. He came from home where he lives with his daughter. Anticiapte discharge back home likely tomorrow. He can downgrade from IMU to [facility]. Code status was discussed with the patient. Conversation initiated by Dr Munoz with cardiology and I was present for di scussion. Patient does not want to be full code and would prefer to be DNR/DNI. Code status will be updated. Time Spent With Patient Time with patient: 25 - 35 minutes Subjective Date/time seen: 03/29/24 10:40 Interval history: This is an 88-year-old gentleman with a past medical history significant for hypertension, high cholesterol, and obstructive sleep apnea initially presented to an outside hospital emergency room with complaints of chest pain and abdominal pain. He was found have elevated troponins and they were concerns for an NSTEMI and required transfe
--- NOTE | 2024-03-29 10:40 | PM.IMPN ---
Progress Note: A&P Assessment and Plan (1) TIA (transient ischemic attack): Code(s): G45.9 - Transient cerebral ischemic attack, unspecified Status: Acute Assessment and Plan: Patient reports increasing dizziness and expressive asphasia yesterday which was quickly resolved but caused him to present to OSH ED. History of TIA. Concern for recurrent TIA On ASA 81 mg, pravastatin 40 mg -will need to optimize therapy and switch to high intensity statin upon discharge MRI brain Bilateral carotid duplex ECHO ordered Telemetry Lipid and hemoglobin A1C ordered 03/29- will stop pravastatin- and start rosuvastatin- high intensity statin-continue asa (2) Chest pain: Code(s): R07.9 - Chest pain, unspecified Status: Acute Assessment and Plan: Chest pain with abdominal pain at OSH. Upon exam patient states he was not really having chest pain, rather left axillary musculoskeletal discomfort which is described as achy. IMU admission with continuous cardiac monitoring EKG showed SB rate 56 with right BBB without signs of ACS Troponin was 371-->460 He was loaded with ASA and started on a heparin gtt. Heparin gtt stopped as he is not having chest pain. Suspect troponin elevation was 2/2 demand from possible TIA. ECHO ordered. Last ECHO from 03/02/2023 EF >70%, mild LVH, grade I diastolic dysfunction (E/e' 11), mild LAE, mod MAC, mild TR. Tylenol, Morphine, Zofran Stat EKG PRN for recurrent chest pain Cardiology is consulted and rec's are appreciated (3) Dizziness: Code(s): R42 - Dizziness and giddiness Status: Acute Assessment and Plan: Persistent recent problem for which he has seen his PCP, behavioral interventionist, and physical therapy outpatient. accompanied occipital pain radiating to the temples, left ear pain/fullness and dizziness and disequilibrium follows with ENT at [facility] for acute on chronic otalgia slow position changes ECHO pending PT/OT (4) Essential hypertension: Code(s): I10 - Essential (primary) hypertension Status: Acute Assessment and Plan: Patient is on amlodipine 10 mg, hydralazine 25 mg b.i.d., losartan 100 mg daily at home Blood pressures reviewed running 140s to 160s over 60s Continue home medications Optimize blood pressure Cardiology is consulted Plan Feeding: Heart healthy diet Analgesia: Tylenol versus morphine Thromboembolic prophylaxis: SCDs Disposition: 88-year-old gentleman who presented to an outside hospital with chest pain with concerns for NSTEMI he required transfer [facility] for Cardiology consult. Patient reported dizziness and expressive asphasia which is what made him present to the ED. Possible TIA. Stroke work up. He came from home where he lives with his daughter. Anticiapte discharge back home likely tomorrow. He can downgrade from IMU to [facility]. Code status was discussed with the patient. Conversation initiated by Dr Munoz with cardiology and I was present for discussion. Patient does not want to be full code and would prefer to be DNR/DNI. Code status will be updated. Time Spent With Patient Time with patient: 25 - 35 minutes Subjective Date/time seen: 03/29/24 10:40 Interval history: This is an 88-year-old gentleman with a past medical history significant for hypertension, high cholesterol, and obstructive sleep apnea initially presented to an outside hospital emergency room with complaints of chest pain and abdominal pain. He was found have elevated troponins and they were concerns for an NSTEMI and required transfer to this facility for cardiology consult. He is a patient of Dr. Solares. The history is provided from the patient as well as chart review. Patient reports yesterday he went to the [facility] for his normal walk was uneventful. He then went for his physical therapy appointment at 1:00 p.m. and returned home around 2:00 p.m. when he started to have increased dizziness. He has been having
[2024-03-29] MEDS: LORazepam (*CRX) 0.5 MG TABLET PO (11:02)
--- NOTE | 2024-03-29 11:56 | WPDNEUROPN ---
Progress Note: A&P Assessment and Plan (1) Acute CVA (cerebrovascular accident): Code(s): I63.9 - Cerebral infarction, unspecified Status: Acute (2) Atrial fibrillation: Code(s): I48.91 - Unspecified atrial fibrillation Status: Acute (3) Dizziness: Code(s): R42 - Dizziness and giddiness Status: Acute Plan Symptoms of dizziness for last 2 years may include differential diagnosis of peripheral vestibular pathology versus transient brainstem ischemic events. I have reviewed the MRI of the brain that showed infarct in the cerebellar region. Patient had another episode last night where he was thing seeing the things slanted. And for this can also occur from the vestibular disorder. Upon the findings out suggest as MR angiography of the intracranial vessels and lipid profile and switch him from pravastatin to high intensity statin such as Lipitor 40 mg a day. We should also keep the LDL under 65 . Thank you very much Subjective Date/time seen: 03/29/24 11:56 Interval history: The patient has history of dizziness on and off for last 2 years however last night he had willing of looking what was in front of him a slanted. He states that this was scary feeling. He did not have any lapses in awareness. No nausea vomiting however he had some headache in the frontal area. No weakness in upper lower limbs. It was noted the patient was found to have atrial fibrillation and has been seen by the hand thermal cutter yesterday and has been advised to start on anticoagulation. Patient has been on probable statin in the past. There is no history of prior stroke. Review of Systems Review of Systems: All systems reviewed & are unremarkable except as noted in HPI and below Exam Narrative: Fully conscious alert oriented to self time place and person. Speech fluent and articulate. No aphasia or dysarthria. No nuchal rigidity. No tenderness over the temporal arteries. Cranial nerves pupils are equal reacting to light visual parkinson and extraocular movements are intact there is no facial asymmetry. Facial sensation intact. Tongue was midline. Other can motor system normal power and tone in both upper and lower limbs. Alternating movement the hands and feet were within normal range. Sensory is grossly intact. Objective Data Vital Signs Vital Signs: Vital Signs - 24 hr 03/28/24 14:00 03/28/24 12:00 03/28/24 16:00 Temperature 36.4 C L Pulse Rate 62 60 56 L Respiratory Rate 19 Blood Pressure 144/48 H Pulse Oximetry 97 Oxygen Delivery 03/28/24 18:11 03/28/24 19:36 03/28/24 20:00 Temperature 36.5 C 36.4 C Pulse Rate 57 L 57 L 59 L Respiratory Rate 18 18 Blood Pressure 109/49 L 110/58 L Pulse Oximetry 97 96 Oxygen Delivery 03/28/24 20:00 03/29/24 00:00 03/29/24 00:25 Temperature Pulse Rate 59 L 59 L Respiratory Rate 16 Blood Pressure 145/91 H Pulse Oximetry Oxygen Delivery Room Air 03/29/24 04:00 03/29/24 05:55 Temperature 36.8 C Pulse Rate 62 67 Respiratory Rate 16 Blood Pressure 143/63 H Pulse Oximetry 97 Oxygen Delivery Intake/Output Intake/Output: Intake & Output 03/26/24 03/27/24 03/28/24 03/29/24 23:59 23:59 23:59 23:59 Intake Total 680 1600 540 Output Total 500 Balance 180 1600 540 Meds/Results Medications: Active Medications Generic Name Dose Route Start Last Admin Trade Name Freq PRN Reason Stop Dose Admin Acetaminophen 650 mg 03/27/24 03:43 Acetaminophen 325 Mg Tablet PO Q4H PRN Mild Pain (1-3) or Fever Al Hydrox/Mg Hydrox/Simethicone 30 ml 03/27/24 03:43 Mag Hydrox/Al Hydrox/Simeth 30 Ml Udc PO QID PRN Dyspepsia Amlodipine Besylate 10 mg 03/27/24 09:00 03/29/24 09:27 Amlodipine Besylate 10 Mg Tablet PO 10 mg DAILY SIDDHARTH Administration Aspirin 81 mg 03/27/24 09:00 03/29/24 09:27 Aspirin 81 Mg Enteric Tablet PO 81 mg DAILY [facility] Administrat
[2024-03-29 12:53] LABS: Cholesterol 156 mg/dL (0-200); HDL Direct 62 mg/dL; Triglycerides 59 mg/dL (<150)
[2024-03-29 13:04] LABS: LDL Cholesterol Direct 72 mg/dL
[2024-03-29] MEDS: APIXABAN 5 MG TABLET PO (20:06)
[2024-03-30] VITALS (9 sets, daily range): BP systolic 116–125; BP diastolic 44–65; PULSE 54–73; RESP 16–20; TEMP 36.3–36.5; O2SAT 95–98
[2024-03-30 05:16] LABS: Basophils Percent Auto 0.3 % (0.2-1.2); Eosinophils Absolute Auto 0.3 K/mm3 (0-0.3); Eosinophils Percent Auto 4.1 % (0-4.4); Hematocrit 35.2 % (42.0-52.0); Hemoglobin 11.4 g/dL (14.0-18.0); Immature Granulocyte Absolute 0.01 K/mm3 (0.00-0.031); Immature Granulocyte Percent A 0.1 % (0-0.5); Lymphocytes Absolute Auto 2.34 K/mm3 (0.9-3.2); Lymphocytes Percent Auto 34.6 % (18.3-44.2); Mean Corpuscular HGB Conc 32.4 g/dl (32-36); Mean Corpuscular Hemoglobin 30.7 pg (26-34); Mean Corpuscular Volume 94.9 fl (80-100); Mean Platelet Volume 9.8 fl (7.4-10.4); Monocytes Absolute Auto 0.7 K/mm3 (0.1-0.6); Monocytes Percent Auto 10.6 % (2.6-8.5); Neutrophils Absolute Auto 3.4 K/mm3 (1.3-6.7); Neutrophils Percent Auto 50.3 % (45.5-73.1); Platelet Count Result 251 k/mm3 (150-375); Red Blood Count 3.71 M/mm3 (4.6-6.20); Red Cell Distribution Width 14.2 % (11.5-14.5); White Blood Count 6.8 K/mm3 (4.5-10.0)
[2024-03-30 05:34] LABS: Alanine Aminotransferase 41 U/L (6-50); Albumin Level 3.6 g/dL (3.5-5.1); Alkaline Phosphatase 69 U/L (38-126); Anion Gap 10 mmol/L (4-12); Aspartate Amino Transferase 54 U/L (17-59); Bilirubin,Total 0.9 mg/dL (0.2-1.3); Blood Urea Nitrogen 34 mg/dL (9-20); Calcium 9.1 mg/dL (8.4-10.2); Carbon Dioxide 22 mmol/L (22-30); Chloride 104 mmol/L (98-107); Estimated CRCL calculation 28 ml/min; Estimated Glomerular Filt Rate 41; Glucose 91 mg/dL (65-110); Magnesium 1.9 mg/dL (1.6-2.3); Sodium 136 mmol/L (137-145)
--- NOTE | 2024-03-30 08:39 | P.PNIM_ITS ---
Progress Note: A&P Assessment and Plan (1) TIA (transient ischemic attack): Code(s): G45.9 - Transient cerebral ischemic attack, unspecified Status: Acute Assessment and Plan: Patient reports increasing dizziness and expressive asphasia yesterday which was quickly resolved but caused him to present to OSH ED. History of TIA. * Concern for recurrent TIA * On ASA 81 mg, pravastatin 40 mg -will need to optimize therapy and switch to high intensity statin upon discharge * MRI brain * Bilateral carotid duplex * ECHO ordered * Telemetry * Lipid and hemoglobin A1C ordered * 03/29- will stop pravastatin- and start rosuvastatin- high intensity statin- continue asa - added eliquis 03/30 -monitor (2) Chest pain: Code(s): R07.9 - Chest pain, unspecified Status: Acute Assessment and Plan: Chest pain with abdominal pain at OSH. Upon exam patient states he was not really having chest pain, rather left axillary musculoskeletal discomfort which is described as achy. * IMU admission with continuous cardiac monitoring * EKG showed SB rate 56 with right BBB without signs of ACS * Troponin was 371-->460 * He was loaded with ASA and started on a heparin gtt. Heparin gtt stopped as he is not having chest pain. Suspect troponin elevation was 2/2 demand from possible TIA. * ECHO ordered. Last ECHO from 03/02/2023 EF >70%, mild LVH, grade I diastolic dysfunction (E/e' 11), mild LAE, mod MAC, mild TR. * Tylenol, Morphine, Zofran * Stat EKG PRN for recurrent chest pain * Cardiology is consulted and rec's are appreciated * - no repeat trop noted- will add today * - no chest pain, no sob (3) Dizziness: Code(s): R42 - Dizziness and giddiness Status: Acute Assessment and Plan: Persistent recent problem for which he has seen his PCP, furniture rental consultant, and physical therapy outpatient. * accompanied occipital pain radiating to the temples, left ear pain/fullness and dizziness and disequilibrium * follows with ENT at [facility] for acute on chronic otalgia * slow position changes * ECHO pending * PT/OT (4) Essential hypertension: Code(s): I10 - Essential (primary) hypertension Status: Acute Assessment and Plan: Patient is on amlodipine 10 mg, hydralazine 25 mg b.i.d., losartan 100 mg daily at home * Blood pressures reviewed running 140s to 160s over 60s * Continue home medications * Optimize blood pressure * Cardiology is consulted Plan Feeding: Heart healthy diet Analgesia: Tylenol versus morphine Thromboembolic prophylaxis: SCDs Disposition: 88-year-old gentleman who presented to an outside hospital with chest pain with concerns for NSTEMI he required transfer [facility] for Cardiology consult. Patient reported dizziness and expressive asphasia which is what made him present to the ED. Possible TIA. Stroke work up. He came from home where he lives with his daughter. Anticiapte discharge back home likely tomorrow. He can downgrade from IMU to [facility]. Code status was discussed with the patient. Conversation initiated by Dr Munoz with cardiology and I was present for discussion. Patient does not want to be full code and would prefer to be DNR/DNI. Code status will be updated. Time Spent With Patient Time with patient: 25 - 35 minutes Subjective Date/time seen: 03/30/24 08:39 Interval history: nterval history: This is an 88-year-old gentleman with a past medical history significant for hypertension, high cholesterol, and obstructive sleep apnea initially presented to an outside hospital emergency room with complai
--- NOTE | 2024-03-30 08:39 | PM.IMPN ---
Progress Note: A&P Assessment and Plan (1) TIA (transient ischemic attack): Code(s): G45.9 - Transient cerebral ischemic attack, unspecified Status: Acute Assessment and Plan: Patient reports increasing dizziness and expressive asphasia yesterday which was quickly resolved but caused him to present to OSH ED. History of TIA. Concern for recurrent TIA On ASA 81 mg, pravastatin 40 mg -will need to optimize therapy and switch to high intensity statin upon discharge MRI brain Bilateral carotid duplex ECHO ordered Telemetry Lipid and hemoglobin A1C ordered 03/29- will stop pravastatin- and start rosuvastatin- high intensity statin-continue asa - added eliquis 03/30 -monitor (2) Chest pain: Code(s): R07.9 - Chest pain, unspecified Status: Acute Assessment and Plan: Chest pain with abdominal pain at OSH. Upon exam patient states he was not really having chest pain, rather left axillary musculoskeletal discomfort which is described as achy. IMU admission with continuous cardiac monitoring EKG showed SB rate 56 with right BBB without signs of ACS Troponin was 371-->460 He was loaded with ASA and started on a heparin gtt. Heparin gtt stopped as he is not having chest pain. Suspect troponin elevation was 2/2 demand from possible TIA. ECHO ordered. Last ECHO from 03/02/2023 EF >70%, mild LVH, grade I diastolic dysfunction (E/e' 11), mild LAE, mod MAC, mild TR. 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 accompanied occipital pain radiating to the temples, left ear pain/fullness and dizziness and disequilibrium follows with ENT at [facility] for acute on chronic otalgia slow position changes ECHO pending PT/OT (4) Essential hypertension: Code(s): I10 - Essential (primary) hypertension Status: Acute Assessment and Plan: Patient is on amlodipine 10 mg, hydralazine 25 mg b.i.d., losartan 100 mg daily at home Blood pressures reviewed running 140s to 160s over 60s Continue home medications Optimize blood pressure Cardiology is consulted Plan Feeding: Heart healthy diet Analgesia: Tylenol versus morphine Thromboembolic prophylaxis: SCDs Disposition: 88-year-old gentleman who presented to an outside hospital with chest pain with concerns for NSTEMI he required transfer [place] for Cardiology consult. Patient reported dizziness and expressive asphasia which is what made him present to the ED. Possible TIA. Stroke work up. He came from home where he lives with his daughter. Anticiapte discharge back home likely tomorrow. He can downgrade from IMU to [facility]. Code status was discussed with the patient. Conversation initiated by Dr Munoz with cardiology and I was present for discussion. Patient does not want to be full code and would prefer to be DNR/DNI. Code status will be updated. Time Spent With Patient Time with patient: 25 - 35 minutes Subjective Date/time seen: 03/30/24 08:39 Interval history: nterval history: This is an 88-year-old gentleman with a past medical history significant for hypertension, high cholesterol, and obstructive sleep apnea initially presented to an outside hospital emergency room with complaints of chest pain and abdominal pain. He was found have elevated troponins and they were concerns for an NSTEMI and required transfer to this facility for cardiology consult. He is a patient of Dr. Solares. The history is provided from the patient as well as chart review. Patient reports yesterday he went to the [facility] for his normal walk was uneventful. He then went for his physical therapy appoint
[2024-03-30] MEDS: LOSARTAN POTASSIUM 100 MG TABLET PO (09:05)
[2024-03-30] MEDS: amLODIPine BESYLATE 10 MG TABLET PO (09:05)
[2024-03-30] MEDS: ASPIRIN 81 MG ENTERIC TABLET PO (09:05)
[2024-03-30] MEDS: polyethylene glycoL 3350 17 GM POWD.PACK PO (09:05)
[2024-03-30] MEDS: ROSUVASTATIN 20 MG TABLET PO (09:05)
[2024-03-30] MEDS: CYANOCOBALAMIN 1,000 MCG TABLET 1000 MCG PO (09:05)
[2024-03-30] MEDS: hydrALAZINE HCL 25 MG TABLET PO ×2 (09:05→21:00)
[2024-03-30] MEDS: SODIUM CHLORIDE 0.9% IV 250 ML 100 ML IV CONT (09:06)
[2024-03-30] MEDS: APIXABAN 5 MG TABLET PO ×2 (09:06→21:00)
[2024-03-30] MEDS: LATANOPROST 0.005% OP SOLN 2.5 ML BTL 1 DROP EACH EYE (09:19)
[2024-03-30 09:53] LABS: Troponin I 0.585 ng/mL (0.000-0.034)
--- NOTE | 2024-03-30 15:48 | WPDNEUROPN ---
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 MR angiogram of the intracranial vessels did not show any significant abnormalities. I would suggest continued observation. Noted that he has been changed from pravastatin to Crestor I agree with the same. Neurology will sign off unless that any problem I shall be glad to see him again. Subjective Date/time seen: 03/30/24 15:48 Interval history: The patient was seen her previously with regard to the episodes of dizziness and brainstem stroke. He has had a rapid heart rate with a new onset atrial fibrillation is now on Eliquis. No other additional new symptoms were reported. Insults of the investigations in progress was reviewed. Review of Systems Review of Systems: No new symptoms Exam Narrative: fully conscious alert oriented to self time place and person Cranial nerves injured test were intact Motor system normal power and tone in both upper lower limbs Coordination finger-nose appears normal. No nystagmus or intention tremors were noted. Objective Data Vital Signs Vital Signs: Vital Signs - 24 hr 03/29/24 16:00 03/29/24 20:03 03/29/24 20:00 Temperature 36.4 C Pulse Rate 61 60 58 L Respiratory Rate 18 Blood Pressure 140/56 L Pulse Oximetry 99 Oxygen Delivery 03/29/24 20:00 03/30/24 00:00 03/30/24 04:00 Temperature Pulse Rate 58 L 54 L Respiratory Rate Blood Pressure Pulse Oximetry Oxygen Delivery Room Air 03/30/24 05:21 03/30/24 08:00 Temperature 36.5 C Pulse Rate 60 73 Respiratory Rate 16 Blood Pressure 122/65 Pulse Oximetry 96 Oxygen Delivery Intake/Output Intake/Output: Intake & Output 03/27/24 03/28/24 03/29/24 03/30/24 23:59 23:59 23:59 23:59 Intake Total 680 1600 1260 790 Output Total 500 Balance 180 1600 1260 790 Meds/Results Medications: Active Medications Generic Name Dose Route Start Last Admin Trade Name Freq PRN Reason Stop Dose Admin Acetaminophen 650 mg 03/27/24 03:43 Acetaminophen 325 Mg Tablet PO Q4H PRN Mild Pain (1-3) or Fever Al Hydrox/Mg Hydrox/Simethicone 30 ml 03/27/24 03:43 Mag Hydrox/Al Hydrox/Simeth 30 Ml Udc PO QID PRN Dyspepsia Amlodipine Besylate 10 mg 03/27/24 09:00 03/30/24 09:05 Amlodipine Besylate 10 Mg Tablet PO 10 mg DAILY SIDDHARTH Administration Apixaban 5 mg 03/29/24 21:00 03/30/24 09:06 Apixaban 5 Mg Tablet PO 5 mg Q12HR SIDDHARTH Administration Aspirin 81 mg 03/27/24 09:00 03/30/24 09:05 Aspirin 81 Mg Enteric Tablet PO 81 mg DAILY SIDDHARTH Administration Cyanocobalamin 1,000 mcg 03/27/24 09:00 03/30/24 09:05 Cyanocobalamin 1,000 Mcg Tablet PO 04/26/24 08:59 1,000 mcg DAILY SIDDHARTH Administration Hydralazine HCl 25 mg 03/27/24 09:00 03/30/24 09:05 Hydralazine Hcl 25 Mg Tablet PO 25 mg Q12HR SIDDHARTH Administration Latanoprost 1 drop 03/27/24 09:00 03/30/24 09:19 Latanoprost 0.005% Op Soln 2.5 Ml Btl EACH EYE 1 drop DAILY SIDDHARTH Administration Losartan Potassium 100 mg 03/27/24 09:00 03/30/24 09:05 Losartan Potassium 100 Mg Tablet PO 100 mg DAILY SIDDHARTH Administration Magnesium Hydroxide 30 ml 03/27/24 03:43 Magnesium Hydroxide Susp 30 Ml Udc PO DAILY PRN Constipation Morphine Sulfate 2 mg 03/27/24 03:43 Morphine Sulfate (*Crx) 2 Mg/Ml Inj IV PUSH Q4H PRN Pain Rated 7-10
[2024-03-31] VITALS: PULSE 59
[2024-03-31 04:00] VITALS: PULSE 56
[2024-03-31 04:48] VITALS: BP 123/49; PULSE 64; RESP 16; TEMP 36.6; O2SAT 97
[2024-03-31 07:01] LABS: Basophils Percent Auto 0.3 % (0.2-1.2); Eosinophils Absolute Auto 0.6 K/mm3 (0-0.3); Eosinophils Percent Auto 8.9 % (0-4.4); Hematocrit 34.4 % (42.0-52.0); Hemoglobin 11.5 g/dL (14.0-18.0); Immature Granulocyte Absolute 0.01 K/mm3 (0.00-0.031); Immature Granulocyte Percent A 0.2 % (0-0.5); Lymphocytes Absolute Auto 1.35 K/mm3 (0.9-3.2); Lymphocytes Percent Auto 21.9 % (18.3-44.2); Mean Corpuscular HGB Conc 33.4 g/dl (32-36); Mean Corpuscular Hemoglobin 31.1 pg (26-34); Mean Platelet Volume 9.9 fl (7.4-10.4); Monocytes Absolute Auto 0.7 K/mm3 (0.1-0.6); Monocytes Percent Auto 11.8 % (2.6-8.5); Neutrophils Absolute Auto 3.5 K/mm3 (1.3-6.7); Neutrophils Percent Auto 56.9 % (45.5-73.1); Platelet Count Result 251 k/mm3 (150-375); White Blood Count 6.2 K/mm3 (4.5-10.0)
[2024-03-31 07:17] LABS: Alanine Aminotransferase 34 U/L (6-50); Albumin Level 3.7 g/dL (3.5-5.1); Alkaline Phosphatase 69 U/L (38-126); Anion Gap 9 mmol/L (4-12); Aspartate Amino Transferase 37 U/L (17-59); Bilirubin,Total 0.9 mg/dL (0.2-1.3); Blood Urea Nitrogen 33 mg/dL (9-20); Carbon Dioxide 25 mmol/L (22-30); Chloride 104 mmol/L (98-107); Estimated CRCL calculation 28 ml/min; Estimated Glomerular Filt Rate 41; Glucose 91 mg/dL (65-110); Magnesium 1.9 mg/dL (1.6-2.3); Sodium 138 mmol/L (137-145)
[2024-03-31 08:09] VITALS: PULSE 58; RESP 16; O2SAT 98
[2024-03-31] MEDS: APIXABAN 5 MG TABLET PO (09:48)
[2024-03-31] MEDS: CYANOCOBALAMIN 1,000 MCG TABLET 1000 MCG PO (09:48)
[2024-03-31] MEDS: hydrALAZINE HCL 25 MG TABLET PO (09:48)
[2024-03-31] MEDS: ROSUVASTATIN 20 MG TABLET PO (09:48)
[2024-03-31] MEDS: amLODIPine BESYLATE 10 MG TABLET PO (09:48)
[2024-03-31] MEDS: LOSARTAN POTASSIUM 100 MG TABLET PO (09:48)
[2024-03-31] MEDS: polyethylene glycoL 3350 17 GM POWD.PACK PO (09:48)
[2024-03-31] MEDS: ASPIRIN 81 MG ENTERIC TABLET PO (09:48)
[2024-03-31] MEDS: LATANOPROST 0.005% OP SOLN 2.5 ML BTL 1 DROP EACH EYE (09:49)
--- NOTE | 2024-03-31 11:40 | PM.DS ---
DS: Admitting Diagnosis Discharge Date 03/31 Admitting Diagnosis chest pain, dizziness DS: Summary Hospital Course Hospital Course: This is an 88-year-old gentleman with a past medical history significant for hypertension, high cholesterol, and obstructive sleep apnea initially presented to an outside hospital emergency room with complaints of chest pain and abdominal pain. He was found have elevated troponins and they were concerns for an NSTEMI and required transfer to this facility for cardiology consult. He is a patient of Dr. Solares. The history is provided from the patient as well as chart review. Patient reports yesterday he went to the [facility] for his normal walk was uneventful. He then went for his physical therapy appointment at 1:00 p.m. and returned home around 2:00 p.m. when he started to have increased dizziness. He has been having recurrent dizziness for the last 2 years which is normally occurring with activity but the dizziness was occurring while he was at rest and it progressively got worse. He was also having a headache and his daughter reported that he was having some slurred speech. The patient says that he was having difficulty with word finding. As far as he knows he did not have any facial drooping, vision changes, or unilateral weakness. He reports that his symptoms resolved when he arrived to the hospital at [place]. He then experienced some severe mid abdominal cramping, aching pain. He also describes this left chest versus axillary muscle discomfort which he describes as achy and constant. He does report some minimal shortness of breath with increased activity. Normally he is able to walk 2-3 miles a day applied over the last few months he has noticed that after walking half a mile he has to stop and rest for less than 5 minutes to catch his breath. He denies orthopnea, lower extremity edema, or abdominal distention. Last bowel movement was 7-15 which was normal and he has good urine output. In the ER at the outside facility EKG showed sinus bradycardia with a rate of 56 in the right bundle branch block without obvious findings of ACS. His troponin was elevated at 371. He received aspirin, IV fluids, morphine, and Zofran. CTA was completed and showed no evidence of aortic dissection or pulmonary embolism. CTA did show incidental finding of heterogeneous attenuation of bone marrow suggestive of chronic disease versus anemia versus myeloproliferative or diffuse metastatic disease. Repeat troponin was 460 and patient was started on a heparin gtt. Cardiology was consulted and the patient was transferred to [facility] and admitted to the hospitalist service. Cardiology saw him today: EKG obtained 03/27 shows rate-controlled AFIB. Suspect stroke may have been secondary to atrial fibrillation. Recommend starting Xarelto or Eliquis for stroke risk reduction whenever okay from a Neurology standpoint. Neurology saw his today- no interventions needed. Called Konstantin, pt's son per their request to discuss plan of care- [phone] - no answer. 03/29- pt is seen and examined today. Called Konstantin and discussed plan of care. All questions answered. he understands risk/benefits of blood thinner and wants his father to start Eliquis. 03/30- pt is seen and examined. Feeling well today. Increase in cr/BUN- will give some fluids and monitor. VS reviewed and stable. Tolerating rosuvastatin and Eliquis well. Family at the bedside- updated on plan of care 03/31- feeling well- neurology signed off ready to go home. discussed in details BP, and CR/BUN- will decrease amlodipine dose to 5 mg daily and need to monitor BP daily x 1 week. F/u with card or pcp and have bp assesses and repeat cmp to assess kidney function. Status at Discharge Functional status at discharge: independent ambulation Overall status at discharge: patient is back to baseline Time Spent with Patient Time attestation: Total time spent providing and/or coordinating discharg
== END 2024-03-31 12:55 | disposition home or self-care (01) | DRG 66 ==
LOC: ANHIMU 07:14 → ANH3MED 16:42
PROVIDERS: Internal Medicine; Nurse Practitioner Acute Care; Psychiatry & Neurology Neurology; Admitting Provider Internal Medicine; PCP Physician Assistant Medical; Visit Provider Nurse Practitioner
DX: I63.9 Cerebral infarction, unspecified (principal); I48.91 Unspecified atrial fibrillation; I45.10 Unspecified right bundle-branch block; R47.81 Slurred speech; E78.5 Hyperlipidemia, unspecified; E53.8 Deficiency of other specified B group vitamins; G47.33 Obstructive sleep apnea (adult) (pediatric); I10 Essential (primary) hypertension; R79.89 Other specified abnormal findings of blood chemistry; R42 Dizziness and giddiness; Z86.73 Personal history of transient ischemic attack (TIA), and cerebral infarction without residual deficits; Z79.82 Long term (current) use of aspirin
CPT/HCPCS: 36415; 70544; 70551; 80048; 80053; 80061; 83036; 83735; 84100; 84484; 85025; 85610; 85730; 93005; 93880; A9270; C8929; G0378; G0379; J1644; J2060; J7050; Q9957

== ENCOUNTER 2024-05-03 08:45 | Outpatient (CLI) | payer MEDICARE, OTHER, SELFPAY | END 2024-05-03 08:46 | disposition home or self-care (01) | LOC: ANHAUDIO 08:45 | PROVIDERS: PCP Physician Assistant Medical; Visit Provider Otolaryngology | DX: H74.23 Discontinuity and dislocation of ear ossicles, bilateral (principal); I48.91 Unspecified atrial fibrillation; I63.9 Cerebral infarction, unspecified; H90.41 Sensorineural hearing loss, unilateral, right ear, with unrestricted hearing on the contralateral side; H90.72 Mixed conductive and sensorineural hearing loss, unilateral, left ear, with unrestricted hearing on the contralateral side | CPT/HCPCS: 92557; 92567 ==

== ENCOUNTER 2024-05-08 11:17 | Outpatient (CLI) | payer MEDICARE, OTHER, SELFPAY ==
[2024-05-08 11:48] LABS: Basophils Percent Auto 0.3 % (0.2-1.2); Eosinophils Absolute Auto 0.2 K/mm3 (0-0.3); Eosinophils Percent Auto 2.4 % (0-4.4); Hematocrit 33.3 % (42.0-52.0); Immature Granulocyte Absolute 0.01 K/mm3 (0.00-0.031); Immature Granulocyte Percent A 0.2 % (0-0.5); Lymphocytes Absolute Auto 1.68 K/mm3 (0.9-3.2); Lymphocytes Percent Auto 25.6 % (18.3-44.2); Mean Corpuscular Hemoglobin 30.9 pg (26-34); Mean Corpuscular Volume 93.5 fl (80-100); Mean Platelet Volume 9.7 fl (7.4-10.4); Monocytes Absolute Auto 0.9 K/mm3 (0.1-0.6); Monocytes Percent Auto 13.1 % (2.6-8.5); Neutrophils Absolute Auto 3.8 K/mm3 (1.3-6.7); Neutrophils Percent Auto 58.4 % (45.5-73.1); Platelet Count Result 228 k/mm3 (150-375); Red Blood Count 3.56 M/mm3 (4.6-6.20); Red Cell Distribution Width 13.4 % (11.5-14.5); White Blood Count 6.6 K/mm3 (4.5-10.0)
[2024-05-08 16:35] LABS: Iron 61 ug/dL (49-181)
[2024-05-08 16:37] LABS: Alanine Aminotransferase 31 U/L (6-50); Albumin Level 4.4 g/dL (3.5-5.1); Alkaline Phosphatase 79 U/L (38-126); Anion Gap 11 mmol/L (4-12); Aspartate Amino Transferase 35 U/L (17-59); Bilirubin,Total 1.1 mg/dL (0.2-1.3); Blood Urea Nitrogen 29 mg/dL (9-20); Calcium 9.5 mg/dL (8.4-10.2); Carbon Dioxide 25 mmol/L (22-30); Chloride 102 mmol/L (98-107); Estimated Glomerular Filt Rate 48; Glucose 105 mg/dL (65-110); Potassium 4.5 mmol/L (3.4-5.0); Sodium 138 mmol/L (137-145)
[2024-05-08 17:17] LABS: Percent Iron Saturation 22 % (20-50)
[2024-05-08 17:50] LABS: Vitamin B12 > 1000.0 pg/mL (239-931)
[2024-05-10 09:54] LABS: Protein, Total 7.8 g/dL (6.1-8.1)
[2024-05-11 08:28] LABS: Alpha 1 Globulin 0.4 g/dL (0.2-0.3); Alpha 2 Globulin 0.8 g/dL (0.5-0.9); Beta 1 Globulin 0.4 g/dL (0.4-0.6); Gamma Globulin 2.1 g/dL (0.8-1.7)
[2024-05-11 12:32] LABS: Methylmalonic Acid 190 nmol/L (85-423)
[2024-05-14 11:18] LABS: Soluble Transferrin Receptor 0.65 mg/L (0.76-1.76)
== END 2024-05-08 11:18 | disposition home or self-care (01) ==
PROVIDERS: PCP Physician Assistant Medical; Visit Provider Internal Medicine Hematology & Oncology
DX: D64.9 Anemia, unspecified (principal)
CPT/HCPCS: 36415; 80053; 82607; 82728; 82746; 83540; 83550; 83921; 84155; 84165; 84238; 85025

== ENCOUNTER 2024-05-21 14:00 | Outpatient (CLI) | payer MEDICARE, OTHER, SELFPAY ==
--- NOTE | ~2024-05-21 | MR_ITS ---
EXAMINATION: MR abdomen wo/w con DATE: 05/21/2024 15:44 INDICATION: Liver lesion. TECHNIQUE: Magnetic resonance imaging (MRI) of the abdomen was performed without and with 15 mL Multi Kenzie intravenous contrast. COMPARISON: None. FINDINGS: There are cysts in the liver measuring up to 16 mm. The gallbladder, spleen, pancreas, adrenal glands , and right kidney are normal. There is a 4 mm cyst in left kidney. There are no dilated loops of bow el. The bladder is distended with trabecular wall. IMPRESSION: 1. Benign cysts in the liver. Reviewed, dictated and finalized at location A.
== END 2024-05-21 14:01 | disposition home or self-care (01) ==
LOC: MICIMG 14:01
PROVIDERS: PCP Physician Assistant Medical; Visit Provider Internal Medicine Hematology & Oncology
DX: K76.9 Liver disease, unspecified (principal)
CPT/HCPCS: 74183; A9577

== ENCOUNTER 2024-05-25 07:23 | Outpatient (CLI) | payer MEDICARE, OTHER, SELFPAY ==
[2024-05-24 16:08] VITALS: BMI 24.7
--- NOTE | ~2024-05-25 | BM_ITS ---
EXAMINATION: CCL bone marrow asp w bx diag DATE: 05/25/2024 09:40 INDICATION: Plasma cell disorder. TECHNIQUE: A time-out was performed to verify the patient's name, date of , and procedure to b e performed. The procedure including the risks, benefits, and alternatives was discussed with the pat ient. Risks discussed included bleeding and infection. The patient understood the risks and agreed to proceed. The skin overlying the left ilium was prepped and draped in usual sterile fashion. Anesth etic was administered with 1% lidocaine subcutaneously. 50 mcg fentanyl IV was given for pain control . An 11 gauge needle was inserted into the ilium with fluoroscopic guidance. Bone marrow was aspirat ed. An 8 gauge needle was then inserted into the ilium with fluoroscopic guidance. A core bone marrow biopsy was obtained. There were no immediate complications. Fluoroscopy exposure time was 0.0 minute s. The total number of images was 24. FINDINGS: Real-time fluoroscopy demonstrates a marker overlying the left posterior superior iliac spi ne. IMPRESSION: 1. Fluoro-guided bone marrow aspiration. 2. Fluoro-guided bone marrow core biopsy. Reviewed, dictated and finalized at location A.
[2024-05-25 08:15] VITALS: BP 160/55; PULSE 67; RESP 14; TEMP 36.6; O2SAT 98
[2024-05-25 08:19] LABS: Basophils Percent Auto 0.4 % (0.2-1.2); Eosinophils Absolute Auto 0.2 K/mm3 (0-0.3); Eosinophils Percent Auto 3.2 % (0-4.4); Hematocrit 35.1 % (42.0-52.0); Hemoglobin 11.7 g/dL (14.0-18.0); Immature Granulocyte Absolute 0.01 K/mm3 (0.00-0.031); Immature Granulocyte Percent A 0.1 % (0-0.5); Lymphocytes Absolute Auto 2.53 K/mm3 (0.9-3.2); Lymphocytes Percent Auto 34.7 % (18.3-44.2); Mean Corpuscular HGB Conc 33.3 g/dl (32-36); Mean Corpuscular Hemoglobin 31.5 pg (26-34); Mean Corpuscular Volume 94.4 fl (80-100); Mean Platelet Volume 9.9 fl (7.4-10.4); Monocytes Absolute Auto 0.7 K/mm3 (0.1-0.6); Monocytes Percent Auto 10.1 % (2.6-8.5); Neutrophils Absolute Auto 3.8 K/mm3 (1.3-6.7); Neutrophils Percent Auto 51.5 % (45.5-73.1); Platelet Count Result 259 k/mm3 (150-375); Red Blood Count 3.72 M/mm3 (4.6-6.20); Red Cell Distribution Width 13.4 % (11.5-14.5); White Blood Count 7.3 K/mm3 (4.5-10.0)
[2024-05-25 08:32] LABS: INR 1.1; Prothrombin Time 14.3 Seconds (11.1-14.7)
--- NOTE | 2024-05-25 08:52 | WPDMODSED ---
Moderate Sedation Note-Pt Data Patient Data Diagnosis: Plasma cell disorder. Present Complaint: Plasma cell disorder. Procedure to be performed/Plan: Fluoro-guided bone marrow biopsy of ilium. Allergies Allergy/AdvReac Type Severity Reaction Status Date / Time No Known Allergies Allergy Verified 05/24/24 16:59 Home Medications Medication Instructions Recorded Confirmed Type mecobalamin (vitamin B12) 1,000 1,000 mcg sublingual DAILY 09/03/19 05/24/24 History mcg disintegrating tablet,sublingual latanoprost 0.005 % eye drops 1 drp ophthalmic (eye) DAILY 02/27/24 05/24/24 History amlodipine 5 mg tablet 5 mg PO DAILY #90 tabs 04/04/24 05/24/24 Rx diazepam 5 mg tablet See Rx Instructions PO .COMPLEX 04/12/24 05/24/24 Rx PRN anxiety #1 tablet apixaban 5 mg tablet (Eliquis) 5 mg PO Q12HR #60 tabs 04/27/24 05/24/24 Rx hydralazine 25 mg tablet 25 mg PO BID 05/24/24 05/24/24 History losartan 100 mg tablet 100 mg PO DAILY 05/24/24 05/24/24 History rosuvastatin 20 mg tablet 20 mg PO QAM #90 tabs 05/24/24 05/24/24 Rx zolpidem 10 mg tablet (Ambien) 10 mg PO QHS PRN Sleep 05/24/24 05/24/24 History Sedation/Anesthesia: No previous sedation/anesthesia problems (including family history). [facility] Past Medical History Medical History Anemia Cerebellar stroke syndrome Chronic kidney disease Essential hypertension Hypercholesteremia Insomnia Lightheadedness Numbness in feet Right bundle branch block Sinus bradycardia TIA (transient ischemic attack) 2019 Vitamin B12 deficiency Surgical History Surgical History History of ear surgery History of tonsillectomy S/P TURP Family History Family History Mother Hypertension Social History Social History Social History: Patient lives with his daughter Laurita Hagen who is designated as his emergency contact. He has 3 other children. He is . Smoking packs per day: 0 Smoking cigarettes per day: 0.0 Smoking status: Never smoker Second hand tobacco smoke exposure: No Alcohol intake: current Drinks per week: 1 Alcohol use details: rarely, monthly Substance use: never Substance use type: does not use Do You Feel Safe in your Home?: Yes Lack of Transportation: No Lack of Food: Never True Current Housing: I Have Housing Concerned About Future Housing: No Difficulty Paying Gas/Electric Bills: No Difficulty Paying for Meds: No Currently Unemployed: No Education: Grade School Difficulty w/ Childcare or Family Care: No Living arrangements: alone Additional living arrangements comments: Lives with his daughter Occupation/Education: retired 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/education comments: 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 Gender identity (if verbalized by the patient): Male Spiritual care concerns: No Mod Sed Physical Exam Physical Exam Pre Procedural Exam: Normal: Appearance, Lungs, Heart Rate and Heart Rhythm and Variation: Abdomen (Left abdominal tenderness.) Hours since solid foods: 12 Hours since liquid intake: 9 Mallampati Classification: class II Internal Medicine - PN: Obj Da Vital Signs Vital Signs: Vital Signs - 24 hr 05/25/24 08:15 Temperature 36.6 C Pulse Rate 67 Respiratory Rate 14 Blood Pressure 160/55 H Pulse Oximetry 98 Oxygen Delivery Room Air Labs 05/25/24 08:10 Labs: Laboratory Results - last 24 hr 05/25/24 08:10 WBC 7.3 RBC 3.72 L Hgb 11.7 L Hct 35.1 L MCV 94.4 MCH 31.5 MCHC 33.3 RDW 13.4 Plt Count 259 MPV 9.9 Immature Gran % (Auto) 0.1 Neut % (Auto) 51.5 Lymph % (Auto) 34.7 Levy % (Auto) 10.1 H Eos % (Auto) 3.2 Baso % (Auto) 0.4 Lymph # (Auto) 2.53 Levy # (Auto) 0.7 H Eos # (Auto) 0.2 Baso # (Auto) 0.0 Abs Immat G
[2024-05-25 09:30] VITALS: BP 142/66; PULSE 65; RESP 18; O2SAT 97
[2024-05-25 09:45] VITALS: BP 135/58; PULSE 60; RESP 19; O2SAT 95
[2024-05-25 10:00] VITALS: BP 131/52; PULSE 65; RESP 16; O2SAT 97
[2024-05-25 10:15] VITALS: BP 139/64; PULSE 61; RESP 16; O2SAT 96
== END 2024-05-25 10:38 | disposition home or self-care (01) ==
LOC: ANHCARD 07:23
PROVIDERS: PCP Physician Assistant Medical; Referring Provider Radiology Diagnostic Radiology; Visit Provider Internal Medicine Hematology & Oncology
DX: D72.9 Disorder of white blood cells, unspecified (principal)
CPT/HCPCS: 36415; 38222; 85025; 85610; 88305; 88311; 88313; J1642; J3010; J7040

== ENCOUNTER 2024-05-29 08:58 | Outpatient (CLI) | payer MEDICARE, OTHER, SELFPAY ==
--- NOTE | ~2024-05-29 | PE_ITS ---
EXAMINATION: PET skull to mid thigh DATE: 05/29/2024 11:29 INDICATION: Possible subtle disorder. TECHNIQUE: Blood glucose level was 84 mg/dL. 9.547 mCi of 18-fluorodeoxyglucose (18-FDG) was administ ered i.v. Low dose computed tomography (CT) images were acquired from the base of the brain to the pr oximal thighs for attenuation correction and anatomic localization. Automated exposure control was em ployed. Dose-length product (DLP) was 835 mGy-cm. Positron emission tomography (PET) images were acqu ired in the same distribution. COMPARISON: Abdomen MRI 05/21/2024 FINDINGS: Head/neck: There are likely changes of ocular lens replacement surgeries. There are no pathologically enlarged lymph nodes. Chest: Calcified pulmonary nodules and calcified hilar lymph nodes are consistent with old granulomat ous disease. There is increased activity and normal sized mediastinal and bilateral hilar lymph nodes , likely reactive. No pleural effusion. The heart size is normal. There are coronary artery calcifica tions. There are calcifications of the aortic valve. No pericardial effusion. There is mild pectus ex cavatum. Abdomen/pelvis/proximal thighs: There are cysts in the liver measuring up to 1.9 cm. Calcifications i n the spleen are consistent with old granulomatous disease. The gallbladder is normal in size. The pa ncreas, adrenal glands, and kidneys are normal. There is calcified atherosclerosis of the aorta and m any of the other arteries. The bladder is distended. The prostate is moderately enlarged. There are s cattered diverticula in the colon. There is fat stranding adjacent to sigmoid colon with increased ac tivity, consistent with diverticulitis. There are no dilated loops of bowel. There are no pathologica lly enlarged lymph nodes. There is no free intraperitoneal fluid. There are no lytic lesions of bone. IMPRESSION: 1. No evidence of multiple myeloma. 2. Mild sigmoid diverticulitis. Reviewed, dictated and finalized at location A.
[2024-05-29 09:30] LABS: Glucose Point of Care 84 mg/dl (65-105)
== END 2024-05-29 08:59 | disposition home or self-care (01) ==
LOC: ANHIMG 09:04
PROVIDERS: PCP Physician Assistant Medical; Visit Provider Internal Medicine Hematology & Oncology
DX: D72.9 Disorder of white blood cells, unspecified (principal); R93.2 Abnormal findings on diagnostic imaging of liver and biliary tract; K57.32 Diverticulitis of large intestine without perforation or abscess without bleeding
CPT/HCPCS: 78815; A9552

== ENCOUNTER 2024-05-30 11:39 | Outpatient (CLI) | payer MEDICARE, OTHER, SELFPAY ==
[2024-05-30 12:37] LABS: Immunoglobulin G 2513 mg/dL (700-1600); Immunoglobulin M 28 mg/dL (40-230)
[2024-05-30 12:41] LABS: Immunoglobulin A < 40 mg/dL (70-400)
[2024-06-05 13:18] LABS: Kappa\\Lambda Light Chains 3.67 (0.26-1.65); Lambda Light Chain 13.3 mg/L (5.7-26.3)
== END 2024-05-30 11:40 | disposition home or self-care (01) ==
LOC: ANHLAB 11:42
PROVIDERS: PCP Physician Assistant Medical; Visit Provider Internal Medicine Hematology & Oncology
DX: D72.9 Disorder of white blood cells, unspecified (principal)
CPT/HCPCS: 36415; 82784; 83883

== ENCOUNTER 2024-06-07 09:45 | Outpatient (RCR) | payer MEDICARE, OTHER, SELFPAY ==
--- NOTE | 2024-03-13 15:34 | PTOPEVAL1 ---
Assessment and note entered by Audra Michelle, PT Evaluation Information Assessment Status Evaluation Diagnosis dizziness/giddiness, cervicalgia ICD-10 Condition Codes (PT) Cervicalgia M54.2,R26.9,Dizziness & Giddiness R42 Other ICD-10 Condition Codes ( Abnormal posture R29.3 PT) Onset Several years ago Subjective Information Dizziness used to be intermittent and is now at a low level always present. Looking up will get dizzy and a little pain but then will return to low level dizziness. Never fully goes away. Reported Pain Level Pain Score 4,0: Self Report Assessment PT Clinical Summary Pt presents with complaints of cervicalgia and dizziness. States history of dizziness that would always subside but recently has remained in low levels with increases at times. Pt vestibular testing shows (-) Roll test, (-) Rolette-Hallpike, (-) vertebral artery testing all landon. Pt does demo abnormal postures and resting muscle tone, significantly reduced cervical ROM consistent with arthritis diagnosis with increased symptoms with active neck extension, and difficulty with static balance with small base of support. Dizziness currently appears cervicogenic in nature. Pt has been provided initial HEP, and educated on therapy findings and focus. Pt will greatly benefit from physical therapy to improve cervical mobility, postural deficits, muscle tonicity issues, and improve overall balance. Plan of Care Interventions Electrical Stimulation,Hot Pack/Cold Pack,Manual Therapy,Mechanical Traction,Neuro Re-education, Patient/Caregiver Educati,Therapeutic Activities, Therapeutic Exercise,Self-Care/Home Management, Ultrasound PT Services Indicated Yes Treatment Frequency and 1-2x weekly x 10 visits Duration These treatments will address the objective and functional deficits as defined above. The patient will be advanced safely and appropriately in order for the patient to progress towards his/her prior level of function. Additional exercises will be introduced and as well as a comprehensive home exercise program upon discharge, if needed, ?to ensure carryover of functional gains achieved in the clinic. This treatment plan has been reviewed and agreement upon by the patient.
--- NOTE | 2024-03-13 15:34 | OPREHPOC ---
Outpatient Therapy Plan of Care This is a Multidisciplinary Plan of Care that may contain components documented by all disciplines (PT, OT, and ST.) PT Problem 1 PT Problem #1 Knowledge Deficit PT Goal 1 Goal Pt will be independent in HEP Pt will verbalize understanding of diagnosis and prognosis Target Visit 10 PT Problem 2 PT Problem #2 Pain PT Goal 1 Goal Pt will report greatest pain level at 5/10 or less to improve ADLs and activities Target Visit 5 PT Goal 2 Goal Pt will report greatest pain level at 3/10 or less to improve ADLs and activities Target Visit 10 PT Problem 3 PT Problem #3 Impaired Range of Motion PT Goal 1 Goal Pt will demo landon cervical active ROM of 60 degrees or greater Target Visit 6 PT Goal 2 Goal Pt will demo active lateral flexion landon 35 degrees or greater Target Visit 10
--- NOTE | 2024-05-07 14:04 | PTOPEVAL1 ---
Assessment and note entered by Audra Michelle, PT Evaluation Information Assessment Status Re-evaluation Diagnosis dizziness/giddiness, cervicalgia ICD-10 Condition Codes (PT) Cervicalgia M54.2,R26.9,Dizziness & Giddiness R42 Other ICD-10 Condition Codes ( Abnormal posture R29.3 PT) Onset Several years ago Subjective Information Pt reports initially felt ok, but then got dizzier and dizzier until sat down and couldn't get up. Went to hospital and was told TIA. Had medication changes after this. Went to Audiology and has fluid in the middle ear. Has an appt with ENT for this. Reports when first getting out of bed in the morning is when the neck feels the best for about an hour. Will take tylenol for pain, and icy hot helps. Reported Pain Level Pain Score 3: Self Report Assessment PT Clinical Summary Pt returns to therapy with cervicalgia and occasional dizziness complaints. He had been attending therapy but had a TIA and was hospitalized for a time. He returns no for reevaluation of his neck and dizziness. He has since also had an audiology appt and seen an ENT reporting he has fluid in his middle ear and plans to see ENT to have this addressed. Pt demo's continued deficits in posture, and significantly decreased ROM of cervical spine. Also has some difficulty with high level static balance activities. Pt will benefit from physical therapy in order to address deficits and improve overall function with less discomfort. Plan of Care Interventions Electrical Stimulation,Hot Pack/Cold Pack,Manual Therapy,Neuro Re-education,Therapeutic Activities, Therapeutic Exercise,Self-Care/Home Management, Ultrasound PT Services Indicated Yes Treatment Frequency and 1-2 x weekly x 10 visits Duration These treatments will address the objective and functional deficits as defined above. The patient will be advanced safely and appropriately in order for the patient to progress towards his/her prior level of function. Additional exercises will be introduced and as well as a comprehensive home exercise program upon discharge, if needed, ?to ensure carryover of functional gains achieved in the clinic. This treatment plan has been reviewed and agreement upon by the patient.
--- NOTE | 2024-05-07 14:04 | OPREHPOC ---
Outpatient Therapy Plan of Care This is a Multidisciplinary Plan of Care that may contain components documented by all disciplines (PT, OT, and ST.) PT Problem 1 PT Problem #1 Knowledge Deficit PT Goal 1 Goal / Goal Update Pt will be independent in HEP Pt will verbalize understanding of diagnosis and prognosis Target Visit 10 PT Problem 2 PT Problem #2 Pain PT Goal 1 Goal / Goal Update Pt will report greatest pain level at 5/10 or less to improve ADLs and activities Target Visit 5 PT Goal 2 Goal / Goal Update Pt will report greatest pain level at 3/10 or less to improve ADLs and activities Target Visit 10 PT Problem 3 PT Problem #3 Impaired Range of Motion PT Goal 1 Goal / Goal Update Pt will demo landon cervical active ROM of 60 degrees or greater Target Visit 6 PT Goal 2 Goal / Goal Update Pt will demo active lateral flexion landon 35 degrees or greater Target Visit 10 PT Problem 5 PT Problem #5 Impaired Balance PT Goal 1 Goal / Goal Update Pt will demo tandem stance with eyes closed R/L each 10 seconds Target Visit 10
== END 2024-06-11 23:59 | disposition home or self-care (01) ==
LOC: ANHHIPT 09:45
PROVIDERS: PCP Physician Assistant Medical; Visit Provider Physician Assistant Medical
DX: R42 Dizziness and giddiness (principal); M54.2 Cervicalgia
CPT/HCPCS: 97014; 97110; 97112; 97140; 97161; 97164; G0283

== ENCOUNTER 2024-06-28 10:30 | Outpatient (CLI) | payer MEDICARE, OTHER, SELFPAY ==
--- NOTE | ~2024-06-28 | US_ITS ---
Renal-Bladder ultrasound Clinical History: Abnormal kidney function studies Technique: Real-time sonographic imaging of the kidneys and urinary bladder was performed. Findings: The right kidney measures 9.6 cm in length and the left kidney measures 9.7 cm. There is no hydronephrosis or renal calculus identified. Renal cortical echogenicity is within normal limits. No renal mass lesion is identified. The urinary bladder is moderately distended at the time of this exam. No intraluminal echoes are iden tified. No abnormal wall thickening is seen. Impression: Unremarkable ultrasound of the kidneys and urinary bladder. Reviewed, dictated and finalized at location M. Impression: Unremarkable ultrasound of the kidneys and urinary bladder.
== END 2024-06-28 10:31 | disposition home or self-care (01) ==
LOC: ANHIMG 10:34
PROVIDERS: PCP Physician Assistant Medical; Visit Provider Internal Medicine Nephrology
DX: R94.4 Abnormal results of kidney function studies (principal); N18.31 Chronic kidney disease, stage 3a
CPT/HCPCS: 76775

== ENCOUNTER 2024-07-04 11:19 | Outpatient (RCR) | payer MEDICARE, OTHER, SELFPAY ==
--- NOTE | 2024-06-14 15:38 | PTOPDC ---
Assessment and note entered by Audra Michelle, PT Evaluation Information Assessment Status Discharge Diagnosis dizziness/giddiness, cervicalgia ICD-10 Condition Codes (PT) Cervicalgia M54.2,R26.9,Dizziness & Giddiness R42 Other ICD-10 Condition Codes ( Abnormal posture R29.3 PT) Onset Several years ago Subjective Information Pt reports dizziness is resolved. In the afternoon once in a while on days has been very active, like when walks a lot. Will have dizziness once in a while. Notes also with standing, but when counts to 10 it resolves. When he does the weight lifting, doesn't pay attention if he breathes or not. Doesn't lift heavy, just to loosen up Went to the ENT and had ear drained and now the ear pain is mostly gone. At times through the day will have a pressure build up, but will wiggle the ear and this will help. Self-perceived improvement: 93-94% improved Reported Pain Level Pain Score 0: Self Report Pain Score 3: Self Report Additional Pain Score Comments Rest and neck support, doing his exercises resolves pain. Assessment PT Clinical Summary Pt reports significantly improved neck pain, and resolution of dizziness. He cont to demo reduced neck ROM though this is improved. He also attended an ENT during his time in therapy and had his ear drained which greatly improved his ear pain. His quality of movement and balance score are also improved and he has met 4/6 therapy goals with progress in the other two goals. Pt is happy with his results, demo's understanding of continued HEP and when to return to therapy in the future if necessary. Thus patient is being discharged for completion of his therapy program. Plan of Care PT Services Indicated No
== END 2024-07-04 11:20 | disposition home or self-care (01) ==
LOC: ANHHIPT 11:19
PROVIDERS: PCP Physician Assistant Medical; Visit Provider Physician Assistant Medical
DX: R42 Dizziness and giddiness (principal); M54.2 Cervicalgia
CPT/HCPCS: 97110; 97112; 97140; 97750

== ENCOUNTER 2024-09-24 11:00 | Outpatient (CLI) | payer MEDICARE, OTHER, SELFPAY ==
[2024-09-24 11:20] LABS: Basophils Percent Auto 0.2 % (0.2-1.2); Eosinophils Absolute Auto 0.2 K/mm3 (0-0.3); Eosinophils Percent Auto 2.5 % (0-4.4); Hemoglobin 9.7 g/dL (14.0-18.0); Immature Granulocyte Absolute 0.01 K/mm3 (0.00-0.031); Immature Granulocyte Percent A 0.2 % (0-0.5); Lymphocytes Absolute Auto 2.15 K/mm3 (0.9-3.2); Lymphocytes Percent Auto 33.4 % (18.3-44.2); Mean Corpuscular HGB Conc 32.3 g/dl (32-36); Mean Corpuscular Hemoglobin 30.9 pg (26-34); Mean Corpuscular Volume 95.5 fl (80-100); Mean Platelet Volume 9.6 fl (7.4-10.4); Monocytes Absolute Auto 0.7 K/mm3 (0.1-0.6); Monocytes Percent Auto 10.4 % (2.6-8.5); Neutrophils Absolute Auto 3.4 K/mm3 (1.3-6.7); Neutrophils Percent Auto 53.3 % (45.5-73.1); Platelet Count Result 218 k/mm3 (150-375); Red Blood Count 3.14 M/mm3 (4.6-6.20); Red Cell Distribution Width 13.4 % (11.5-14.5); White Blood Count 6.4 K/mm3 (4.5-10.0)
[2024-09-24 17:00] LABS: Alanine Aminotransferase 20 U/L (6-50); Alkaline Phosphatase 86 U/L (38-126); Anion Gap 9 mmol/L (4-12); Aspartate Amino Transferase 27 U/L (17-59); Bilirubin,Total 0.6 mg/dL (0.2-1.3); Blood Urea Nitrogen 25 mg/dL (9-20); Calcium 9.1 mg/dL (8.4-10.2); Carbon Dioxide 27 mmol/L (22-30); Chloride 104 mmol/L (98-107); Estimated Glomerular Filt Rate 51; Glucose 98 mg/dL (65-110); Potassium 4.4 mmol/L (3.4-5.0); Sodium 140 mmol/L (137-145)
[2024-09-24 17:10] LABS: Immunoglobulin G 2566 mg/dL (700-1600)
[2024-09-24 23:17] LABS: Immunoglobulin A < 40 mg/dL (70-400); Immunoglobulin M < 25 mg/dL (40-230)
[2024-09-25 11:43] LABS: Protein, Total 7.8 g/dL (6.1-8.1)
== END 2024-09-24 11:01 | disposition home or self-care (01) ==
LOC: ANHLAB 11:01
PROVIDERS: PCP Physician Assistant Medical; Visit Provider Internal Medicine Hematology & Oncology
DX: D72.9 Disorder of white blood cells, unspecified (principal)
CPT/HCPCS: 36415; 80053; 82784; 83883; 84155; 84165; 85025

== ENCOUNTER 2024-10-01 15:29 | Outpatient (CLI) | payer MEDICARE, OTHER, SELFPAY ==
[2024-10-01 16:40] LABS: Iron 76 ug/dL (49-181)
[2024-10-01 16:49] LABS: Percent Iron Saturation 26 % (20-50)
[2024-10-01 16:50] LABS: Lactate Dehydrogenase 168 U/L (120-246)
[2024-10-02 21:31] LABS: Folic Acid > 20.0 ng/mL (2.76->20); Vitamin B12 > 1000.0 pg/mL (239-931)
--- OUTSIDE RECORDS SUMMARY | 2024-10-04 14:34 | XMS_ITS | Clinical Summary ---
Author Organization [facility] Address [address] [place] [address] Care Team Providers Care Hvac Operations Technician Name Role Phone Unavailable Primary Care Provider Unavailabl e Source Comments [facility],non-owned Affiliates and Associated Physician Practices is amultiple site organization consisting of ambulatory clinics and hospital sitesin [place], [place], [place] and [place]. This disclosure is being madepursuant to the Care Everywhere program and may not contain all information available regarding this patient. Last updated 18.[facility] Service[employer] Social History Tobacco Use Types Packs/Day Years Used Date Smoking Tobacco: Never Assessed Sex and Gender Information Value Date Recorded Sex Assigned at Not on file Gender Identity Not on file Sexual Orientation Not on file Plan of Treatment Health Maintenance Due Date Last Done Comments MEDICARE AWV ? 12 MONTHS 1935 COVID-19 VACCINE (#1) 1941 DTAP/TDAP/TD VACCINES (1 - Tdap) 1955 PNEUMOCOCCAL VACCINE 50+ (1 of 2 - PCV) 1955 ZOSTER VACCINE (1 of 2) 1955 Respiratory Syncytial Virus (RSV) Vaccine Pt: or over 60 yrs (1 - 1-dose 75+ series) 2011 INFLUENZA VACCINE (#1) 2024 DEPRESSION SCREENING 09/12/2024 HEPATITIS B VACCINE Aged Out No longe r eligible based on patient's age to complete this topic HIB VACCINE Aged Out No longer eligi ble based on patient's age to complete this topic HPV VACCINE Aged Out No longer eligi ble based on patient's age to complete this topic MENINGOCOCCAL (Group B) VACCINE Aged Out No longer eligible based on patient's age to complete this topic MENINGOCOCCAL VACCINE Aged Out No tati romulo eligible based on patient's age to complete this topic Shamar Hagen Personal/Family Self 1935
--- OUTSIDE RECORDS SUMMARY | 2024-10-04 14:35 | XMS_ITS | Continuity of Care Document ---
Author Organization [facility] Address [address] [place] [id number] Phone Care Team Providers Care Accounts Receivable Specialist Name Role Phone Mey Ricks Unavailable Unavailable Procedures Procedure Date Office/outpatient Visit, Est Fundus Photography W/ Report Optic Nerve Head Eval IPO Reduced 15% Visual Field Examination-Professional Gina Visual Field Examination(s) Office/outpatient Visit, Est Optic Nerve Head Eval IPO Reduced 15% Refraction Office/outpatient Visit, Est Optic Nerve Head Eval IPO Reduced 15% Visual Field Examination-Professional Gina Visual Field Examination(s) Office/outpatient Visit, Est Optic Nerve Head Eval Fundus Photography W/ Report Office/outpatient Visit, Est Optic Nerve Head Eval Eye Exam & Treatment Optic Nerve Head Eval Refraction Visual Field Examination-Professional Gina -2007 Visual Field Examination(s) Office/outpatient Visit, Est Fundus Photography W/ Report Optic Nerve Head Eval Visual Functional Status Assessed Office/outpatient Visit, Est Optic Nerve Head Eval Visual Functional Status Assessed Office/outpatient Visit, Est Advance Directives Directive Yes / No Effective Date File Name No Information Encounters Encounter Description Practice Location Reason(s) For Visit Diagnoses Date Provider Providers Copied on Encounter Office/outpat ient Visit, Est [facility], [address] [place] [address] [address], [place], [place], [id number], tel:[phone] [facility] No Information 0 Millicent Mathias. [facility] , [address], [place], [place], [facility], [place]. tel:[phone] Referring Provider: Mey Brooks, [facility] [address], [place], [facility]. tel:[phone] [facility], [address] [place] [address] [address], [place], [place], [id number], tel:[phone] [facility] No Information 0 Millicent Mathias. [facility] , [address], [place], [facility], [place]. tel:[phone] Referring Provider: Mey Brooks, [facility]andon [facility] [address], [place], [facility]. tel:[phone] [facility], [address] [place] [address] [address], [place], [place], [id number], tel:[phone] [facility] No Information 0 Millicent Mathias. [facility] , [address], [place], [address], [place]. tel:[phone] Referring Provider: Mey Brooks, Brandon [address], [place], [address]. tel:[phone] Office/outpat ient Visit, Est [facility], [address] [place] [address] [address], [place], [place], [id number], tel:[phone] [facility] No Information 0 Millicent Mathias. [address] [facility] , [address], [place], [facility], [place]. tel:[phone] Office/outpat ient Visit, Est [facility], [address], [place], [place], [address], [place] tel:[phone] [facility] No Information Sep-0 8-200 9 Millicent Diaz [address] [facility] , [address], [place], [facility], [place]. tel:[phone] [facility], [address] [place] [address] [address], [place], [place], [id number], [place] tel:[phone] [facility] No Information May-0 6-200 9 Millicent Diaz [address] [facility] , [address], [place], [facility], [place]. tel:[phone] Referring Provider: Mey Brooks, [facility] [address], [place], [facility]. tel:[phone] [facility], [address] [place] [address] [address], [place], [place], [id number], [place] tel:[phone] [facility] No Information May-0 4-200 9 Millicent Diaz [address] [facility] , [address], [place], [facility], [place]. tel:[phone] Referring Provider: Mey Brooks, [address] [facility] [address], [place], [facility]. tel:[phone] Office/outpat ient Visit, Est [facility], [address] [place] [address] [address], [place], [place], [address], [place] tel:[phone] [facility] No Information José Antonio-0 2-200 9 Millicent Diaz [address] [facility] , [address], [place], [facility], [place]. tel:[phone] Referring Provider: Mey Brooks, [address] [facility] [address], [place], [facility]. tel:[phone] Office/outpat ient Visit, Est [facility], [address] [place] [address] [address], [place], [place], [id number], tel:[phone] [facility] No Information Aug-2 9-200 8 Millicent Mathias. [address], [place], [facility], [place]. tel:[phone] [facility], [address] [place] [address] [address], [place], [place], [address], [place] tel:[phone] [facility] No Information Dec-2 5-200 8 Millicent Mathias. [address] , [address], [place], [facility], . tel:[phone] [facility], [address] [place] [address] [address], [place], [place], [address], tel:[phone] [facility] No Information Mar-0 4-200 8 Millicent Mathias. [address] , [address], [place], [facility], [place]. tel:[phone] Referring Provider: Mey Brooks, [address], [place], [facility]. tel:[phone] [facility], [address] [place] [address] [address], [place], [place], [address], [place] tel:[phone] [facility] No Information Mar-0 3-200 8 Millicent Mathias. [address] , [address], [place], [facility], [place]. tel:[phone] Referring Provider: Mey Brooks, [address], [place], [facility]. tel:[phone] Office/outpat ient Visit, Est [facility], [address] [place] [address] [address], [place], [place], [id number], [place] tel:[phone] [facility] No Information 7 Millicent Diaz [address] [facility] , [address], [place], [facility], . tel:[phone] Referring Provider: Brandon [facility] [address], [place], [facility]. tel:[phone] Office/outpat ient Visit, [facility], [address] [place] [address] [address], [place], [place], [id number], tel:[phone] [facility] No Information 7 Millicent Diaz [address] [facility] , [address], [place], [facility], . tel:[phone] Office/outpat ient Visit, [facility], [address] [place] [address] [address], [place], [place], [id number], tel:[phone] [facility] No Information 7 Millicent Diaz [address] [facility] , [address], [place], [facility], . tel:[phone] Family History Family Member Type Diagnosis Age At Onset No Information Payers Payer name Insurance type Covered green party ID Authoriza tion(s) Medicare RR MB [id number] Social History Type Description Quantity Date Captured Comments Sex Male Smoking Status No Information Chief Complaint And Reason For Visit No Information Reason For Referral Reason For Referral No Information History Of Present Illness Encounter Date Complaint History Of Prese nt Illness No Information Functional Status Date Functional Assessmen t No Information Instructions Date Instruction Additional Infor mation No Information Assessments Type Assessment Date No Information Patient Care Teams Name Effective Dates (start - stop) Status Members No Information
--- OUTSIDE RECORDS SUMMARY | 2024-10-04 14:35 | XMS_ITS | Clinical Summary ---
Author Organization [facility] Marii Whitlock Address [address] [place] [address] Care Team Providers Care Servicenow Administrator Name Role Phone Unavailable Primary Care Provider Unavailabl e Allergies No known active allergies Medications amLODIPine (NORVASC) 10 mg tablet Take 5 mg by mouth daily. 2 Active hydrALAZINE (APRESOLINE) 25 mg tablet Take 25 mg by mouth. 2 Active latanoprost (XALATAN) 0.005 % solution Administer 1 Drop in both eyes. 2 Active losartan (COZAAR) 100 mg tablet Take 100 mg by mouth daily. 2 Active zolpidem (AMBIEN) 10 mg tablet Take 5 mg by mouth nightly as needed for Insomnia. 2 Active rosuvastatin (CRESTOR) 20 mg tablet Take 20 mg by mouth daily. Active mecobalamin, vitamin B12, 1,000 mcg Tablet, Rapid Dissolve Place under tongue. Active apixaban (Eliquis) 5 mg tablet Take 5 mg by mouth 2 times daily. Active LORazepam (ATIVAN) 0.5 mg tabletIndicatio ns:Anxiety state Take 1 Tablet (0.5 mg) by mouth every 6 hours as needed for Anxiety. 3 Tablet 4 Active omeprazole (PriLOSEC) 40 mg Capsule, Delayed Release(E.C.) Take 40 mg by mouth daily. 5 Active Active Problems No known active problems Encounters Date Type Department Care Team Description 10/04/2024 Orders Only [facility] - [place] [address] [place] [address] Lopez Conrad MD 10/01/2024 2:45 PM DISTILLERY LABORER Office Visit [facility] - [place] [address] [place] [address] Lopez Conrad MD Chronic anemia (Primary Dx) 10/01/2024 Orders Only [facility] - [place] [address] [place] [address] Lopez Conrad MD 09/27/2024 Orders Only [facility] - [place] [address] [place] [address] Lopez Conrad MD 09/25/2024 Orders Only [facility] - [place] [address] [place] [address] Lopez Conrad MD from Last 3 Months Family History Medical History Relation Name Comments No Known Problems Child 1 65 No Known Problems Child 2 63 Breast Cancer Child 3 61 No Known Problems Child 4 58 No Known Problems Father No Known Problems Mother Relation Name Status Comments Child 1 65 Alive Child 2 63 Alive Child 3 61 Alive Child 4 58 Alive Father Mother Social History Tobacco Use Types Packs/Day Years Used Date Smoking Tobacco: Never Smokeless Tobacco: Never Tobacco Cessation:Counseling Given: Not Answered Alcohol Use Standard Drinks/Week Comments Yes 0 (1 standard drink = 0.6 oz pur e alcohol) socially Sex and Gender Information Value Date Recorded Sex Assigned at Not on file Legal Sex Male 4:12 PM CDT Gender Identity Not on file Sexual Orientation Not on file Last Filed Vital Signs Vital Sign Reading Time Taken Comments Blood Pressure 143/74 10/01/2024 2:45 PM DISTILLERY LABORER Pulse 53 10/01/2024 2:37 PM DISTILLERY LABORER Temperature 36.5 ??C (97.7 ??F) 10/01/2024 2:37 PM CS T Respiratory Rate 15 10/01/2024 2:37 PM DISTILLERY LABORER Oxygen Saturation 96% 10/01/2024 2:37 PM DISTILLERY LABORER Inhaled Oxygen Concentration - - Weight 73.3 kg (161 lb 9.6 oz) 10/01/2024 2:37 P M DISTILLERY LABORER Height 172.7 cm (5' 8 ) 05/08/2024 10:25 AM CDT Body Mass Index 24.57 05/08/2024 10:25 AM CDT Plan of Treatment Upcoming Encounters Date Type Department Care Team (Late st Contact Info) Description 10/15/2024 4:30 PM DISTILLERY LABORER Telephone Check Up [facility] On[facility]ology - [place] [address] [facility] [address] [place] [address] Lopez Conrad MD [address] [facility] [address] [place] [address] Health Maintenance Due Date Last Done Comments DTAP/TDAP/TD VACCINES (1 - Tdap) 1955 Traditional Medicare (ACO) Annual Wellness Visit 07/11 PNEUMOCOCCAL VACCINE 65+ YEARS (1 of 1 - PCV) 07/11/19 86 ZOSTER VACCINE (1 of 2) 1986 RSV VACCINE (60+ or ) (1 - 1-dose 75+ series) 2011 INFLUENZA VACCINE (#1) 2024 Procedures Procedure Name Priority Date/Time Associated Diagnosis Comments LACTATE DEHYDROGENASE Routine 10/01/2024 2:18 PM DISTILLERY LABORER KAPPA/LAMBDA LIGHT CHAINS Routine 2024 11:38 AM DISTILLERY LABORER PROTEIN ELECTROPHORESIS, CSF Routine 09/24/2024 4:30 PM DISTILLERY LABORER PROTEIN ELECTROPHORESIS, CSF Routine 09/24/2024 3:17 PM DISTILLERY LABORER PROTEIN ELECTROPHORESIS, CSF Routine 09/24/2024 3:13 PM DISTILLERY LABORER IGG Routine 09/24/2024 2:36 PM DISTILLERY LABORER COMPREHENSIVE METABOLIC PANEL Routine 09/24/2024 2:05 PM DISTILLERY LABORER CBC WITH DIFFERENTIAL Routine 09/24/2024 1:37 PM DISTILLERY LABORER from Last 3 Months Results * LACTATE DEHYDROGENASE (10/01/2024 2:18 PM DISTILLERY LABORER) Blood us Lopez Conrad MD CHEMISTRY ORDERABLES Final Resu lt * KAPPA/LAMBDA, FREE LIGHT CHAINS (09/26/2024 11:38 AM DISTILLERY LABORER) [facility] Result [facility] Lopez Conrad MD CHEMISTRY ORDERABLES Final Resu lt * PROTEIN ELECTROPHORESIS, CSF (09/24/2024 4:30 PM DISTILLERY LABORER) Only the most recent of3 resultswithin the time period is included. Cerebrospinal fluid CEREBROSPINAL FLUID / Unknown us Lopez Conrad MD BODY FLUIDS AND STOOLS Final Re sult * IGG (09/24/2024 2:36 PM DISTILLERY LABORER) Blood Result [facility] us Lopez Conrad MD CHEMISTRY ORDERABLES Final Resu lt * COMPREHENSIVE METABOLIC PANEL (09/24/2024 2:05 PM DISTILLERY LABORER) Blood Result [facility] us Lopez Conrad MD CHEMISTRY ORDERABLES Final Resu lt * CBC WITH DIFFERENTIAL (09/24/2024 1:37 PM DISTILLERY LABORER) Blood Result Lalo Conrad MD HEMATOLOGY ORDERABLES Final Res ult from Last 3 Months Insurance MEDICARE [address] [place] [address]
--- OUTSIDE RECORDS SUMMARY | 2024-10-04 14:35 | XMS_ITS | Clinical Summary ---
Author Organization [facility] Address [address] [facility] [place] [address] [place] [address] Care Team Providers Care Greenbelt Name Role Phone Yeni Gerber Primary Care Provider [phone] Allergies No known active allergies Medications latanoprost 0.005 % ophthalmic solution 12/25/2018 Active pravastatin 40 MG tablet Take 40 mg by mouth nightly at bedtime. Active amLODIPine 10 MG tablet Take 10 mg by mouth daily. Active docusate sodium 100 MG capsule Take 100 mg by mouth nightly. Active vitamin B-12 (CYANOCOBALAMIN ) 1000 mcg tablet Take 1,000 mcg by mouth daily. Active Multiple Vitamins-Minera ls (PRESERVISION AREDS OR) Take 1 tablet by mouth daily. Active aspirin EC (ASPIRIN EC) 81 MG tablet Take 81 mg by mouth daily. Active hydrALAZINE 25 MG tablet Take 25 mg by mouth 2 (two) times daily. Active zolpidem 10 MG tablet Take 10 mg by mouth nightly as needed. at bedtime. 01/19/2022 Active losartan 100 MG tablet Take 100 mg by mouth daily. 02/18/2022 Active Active Problems Problem Noted Date Diagnosed Date Left chronic serous otitis media 03/09/2022 Resolved Problems Problem Noted Date Diagnosed Date Resolved Date Intranasal mass 03/09/2022 03/09/2022 Social History Tobacco Use Types Packs/Day Years Used Date Smoking Tobacco: Never Smokeless Tobacco: Never Alcohol Use Standard Drinks/Week Comments No 0 (1 standard drink = 0.6 oz pur e alcohol) AUDIT-C Answer Date Recorded Frequency of Alcohol Consumption Never 01/26/2019 Average Number of Drinks Not on file 019 Frequency of Binge Drinking Not on file 01/10 Sex and Gender Information Value Date Recorded Sex Assigned at Not on file Legal Sex Male 7:30 PM CDT Gender Identity Not on file Sexual Orientation Not on file Last Filed Vital Signs Vital Sign Reading Time Taken Comments Blood Pressure 162/67 03/27/2024 12:30 AM CDT Pulse 65 03/27/2024 12:30 AM CDT Temperature 36.6 ??C (97.9 ??F) 03/26/2024 9:00 PM CD T Respiratory Rate 18 03/27/2024 12:30 AM CDT Oxygen Saturation 97% 03/27/2024 12:30 AM CDT Inhaled Oxygen Concentration - - Weight 76.2 kg (168 lb) 03/26/2024 4:12 PM CDT Height 172.7 cm (5' 8 ) 03/26/2024 4:12 PM CDT Body Mass Index 25.54 03/26/2024 4:12 PM CDT Plan of Treatment Health Maintenance Due Date Last Done Comments ASCVD LDL 1935 ASCVD Statin 1935 Pneumococcal Vaccine: 65+ Years (1 of 2 - PCV) 1942 DTaP, Tdap and Td Vaccines ( 1 - Tdap) 1955 Zoster Vaccines (1 of 2) 1986 Annual Medicare Wellness Visit 2001 RSV Immunization or 60+ Years (1 - 1-dose 75+ series) 2011 COVID-19 Vaccine (3 - 2023-2 5 season) 2024 07/27/2021, 11/18/2020 Influenza Adult (#1) 2024 Meningococcal Vaccine Aged Out No tati romulo eligible based on patient's age to complete this topic RSV Immunizations Under 20 Months Aged Out No longer eligible b ased on patient's age to complete this topic Medical Devices Implanted Type Area Interlocker Maintainer Device Identifier Shelf Expiration Date Model / Serial / Lot Tube Ventilation 1.02mm 2.7mm Landry Greco Ear Fluoroplastic - [id number] Implanted:Qty: 1 on 03/09/2022 by Deepak Richards MD at [facility] Tube Implant Left: Ear [employer] 04/11/2031 [id number] T / / [id number] Insurance [place] [employer] Member Subscriber Plan / Payer (Ef fective 2001-Present) Name:Shamar Hagen Relation to Subscriber:Self Name:Shamar Hagen Payer ID:Not on file Group ID:Not on file Type:Medicare Address: [address] Advance Directives * Full Code (Latest Code Status on File) Date Activated Date Inactivated Comments 03/09/2022 10:15 AM 03/09/2022 12:43 PM Care Teams Greenbelt Relationship Specialty Start Date End Date Yeni Gerber PA [address] [place] [id number] PCP - General 06/10/23
--- OUTSIDE RECORDS SUMMARY | 2024-10-04 14:35 | XMS_ITS | Encounter Summary ---
Author Organization [facility] [employer] [facility] Address [address] [place] [address] Care Team Providers Care Aerotriangulation Specialist Name Role Phone Unavailable Primary Care Provider Unavailabl e Encounter Details Date Type Department Care Team (Late Contact Info) Description 09/27/2024 Orders Only [facility] Oncology and Hematology [facility] [address] [place] [address] Lopez Conrad MD [address] [place], [place] [address]who[address] [address] [place] [phone] Social History Tobacco Use Types Packs/Day Years Used Date Smoking Tobacco: Never Smokeless Tobacco: Never Alcohol Use Standard Drinks/Week Comments Yes 0 (1 standard drink = 0.6 oz pur e alcohol) socially Sex and Gender Information Value Date Recorded Sex Assigned at Not on file Legal Sex Male 4:12 PM CDT Gender Identity Not on file Sexual Orientation Not on file documented as of this encounter Plan of Treatment Upcoming Encounters Date Type Department Care Team (Late Contact Info) Description 10/15/2024 4:30 PM MONUMENT SETTER HELPER Telephone Check Up [facility] Oncology and Hematology [place] [address] [place] [address] Lopez Conrad MD [address] [employer] [address] [place] [phone] documented as of this encounter Procedures Procedure Name Priority Date/Time Associated Diagnosis Comments KAPPA/LAMBDA LIGHT CHAINS Routine 09/26/2024 11:38 AM MONUMENT SETTER HELPER documented in this encounter Results * KAPPA/LAMBDA, FREE LIGHT CHAINS (09/26/2024 11:38 AM MONUMENT SETTER HELPER) Blood Lopez Conrad MD CHEMISTRY ORDERABLES Final Resu lt documented in this encounter Visit Diagnoses Not on filedocumented in this encounter
--- OUTSIDE RECORDS SUMMARY | 2024-10-04 14:35 | XMS_ITS | Referral Summary ---
Author Organization [facility] [address] Address [address] [place] [address] Care Team Providers Care Marker Shipments Name Role Phone Bebo Ortiz MD Primary Care Provider [phone] Allergies No known active allergies Medications amLODIPine (NORVASC) 10 mg tablet Take 1 tablet (10 mg total) by mouth daily 11/04/2021 Active latanoprost (XALATAN) 0.005 % ophthalmic solution 11/12/2021 Active losartan (COZAAR) 100 mg tablet Take 1 tablet (100 mg total) by mouth daily 10/29/2021 Active pravastatin (PRAVACHOL) 40 mg tablet Take 1 tablet (40 mg total) by mouth nightly at bedtime. 10/01/2021 Active zolpidem (AMBIEN) 10 mg tablet Take 1 tablet (10 mg total) by mouth nightly as needed 11/04/2021 Active aspirin 81 mg enteric coated tablet Take 1 tablet (81 mg total) by mouth daily Active hydrALAZINE (APRESOLINE) 25 mg tablet 02/23/2022 Active cyanocobalamin (Vitamin B-12) 1,000 mcg tablet Take 1 tablet (1,000 mcg total) by mouth daily Active predniSONE (DELTASONE) 10 mg tabletIndicatio ns:Anti-inflamm atory 2 tablets twice daily for 5 days then 1 tablet twice daily for 3 days then 1 tablet daily for 3 days. 29 tablet 01/19/2024 Active Active Problems Problem Noted Date Diagnosed Date Recurrent acute suppurative otitis media without spontaneous rupture of left tympanic membrane 01/19/2024 Otalgia of left ear 01/19/2024 Bilateral impacted cerumen 11/15/2023 Chronic reactive otitis externa of left ear 01/2024 Left ear pain 04/26/2023 Postnasal drip 04/26/2023 Impacted cerumen of left ear 09/28/2022 Left chronic serous otitis media 03/09/2022 Mixed conductive and sensori neural hearing loss of left ear with restricted hearing of right ear 03/02/2022 Dysfunction of both eustachian tubes 11/12/2021 Sensorineural hearing loss (SNHL) of both ears 0 11/12/2021 Social History Tobacco Use Types Packs/Day Years Used Date Smoking Tobacco: Never Smokeless Tobacco: Never Tobacco Cessation:Counseling Given: Not Answered Personal Safety Answer Date Recorded Getting School Help Needed Not on file 09/14 Sex and Gender Information Value Date Recorded Sex Assigned at Not on file Legal Sex Male 9:48 AM CDT Gender Identity Not on file Sexual Orientation Not on file Last Filed Vital Signs Vital Sign Reading Time Taken Comments Blood Pressure - - Pulse - - Temperature 36.6 ??C (97.8 ??F) 11/15/2023 12:[address] Respiratory Rate 18 01/19/2024 3:02 PM CDT Oxygen Saturation - - Inhaled Oxygen Concentration - - Weight 77.1 kg (170 lb) 01/19/2024 3:02 PM CDT Height 172.7 cm (5' 8 ) 01/19/2024 3:02 PM CDT Body Mass Index 25.85 01/19/2024 3:02 PM CDT Plan of Treatment Not on file Insurance MEDICARE [employer] [place] [facility] [place] [facility] Care Teams Marker Shipments Relationship Specialty Start Date End Date Bebo Ortiz MD [address] [place] [id number] PCP - General Family Medicine 01/25/23
--- OUTSIDE RECORDS SUMMARY | 2024-10-04 14:35 | XMS_ITS | Encounter Summary ---
Author Organization [facility] Address [address] [place] [address] Care Team Providers Care Pipe Bender Name Role Phone Unavailable Primary Care Provider Unavailabl e Encounter Details Date Type Department Care Team (Late st Contact Info) Description 05/25/2024 Lab Requisition [facility] - Pathology Lab [address] [place] [address] Navi Villanueva MD [address] [place] [address] Anemia, unspecified Social History Tobacco Use Types Packs/Day Years Used Date Smoking Tobacco: Never Assessed Sex and Gender Information Value Date Recorded Sex Assigned at Not on file Gender Identity Not on file Sexual Orientation Not on file documented as of this encounter Plan of Treatment Not on file documented as of this encounter Procedures Procedure Name Priority Date/Time Associated Diagnosis Comments FLOW CYTOMETRY BONE MARROW Routine 05/25/2024 9:11 AM CDT Anemia, unspecified documented in this encounter Results * FLOW CYTOMETRY BONE MARROW (05/25/2024 9:11 AM CDT) Case Report Flow Cytometry ?Case: [id number] ? Authorizing Provider: ??Navi Villanueva ? Collected: ? 05/25/2024 09:11 AM ? MD [place] ? Ordering Location: ? [facility] - ??Received: ?05/25/2024 02:25 PM ? Pathology Lab ? Pathologist: ? Kesha Teixeira MD ? Specimen: ?Bone Marrow ? 05/25/2024 4:09 PM CDT [facility] Final Diagnosis Bone marrow, flow cytometric immunophenotypic analysis: - Plasma cell dyscrasia - No evidence of a monoclonal B-cell population or increase in blasts - See interpretation 05/25/2024 4:09 PM CDT [facility] Flow Cytometry Interpretation Viability: 94% B-cells: polytypic, kappa:lambda ratio 1.6:1 Blasts: 1.2% of events Plasma cells: 4.8% of events are monoclonal plasma cells that express CD38, CD138, CD20, and cytoplasmic kappa. These cells lack significant expression of CD19, CD56, CD10, and CD117. A bone marrow aspirate smear prepared from the flow cytometry specimen has been reviewed for assistant quality manager purposes. 05/25/2024 4:09 PM [facility] Flow Cytometry Results Differential Result Comment Flow Cell Count /uL 24,000 Total Viability % 94.0 Lymphocytes % 21 Dim CD45 Region % 4 Monocytes % 9 Granulocytes % 65 05/25/2024 4:09 PM [facility] Reason for test Anemia, unspecified 285.9 05/25/2024 4:09 PM [facility] Client Specimen ID # [id number] 05/25/2024 4:09 PM [facility] Number of markers 14 were performed. A-2 Flow CD10 A-3 Flow CD13 A-5 Flow CD20 A-11 Flow CD10 A-14 Flow CD117 A-15 FLOW CD138 A-1 Flow CD5 A-4 Flow CD19 A-6 Flow CD33 A-7 Flow CD34 A-8 Flow CD45 A-12 Flow CD38 A-13 Flow CD56 A-9 [place]+CD19+ A-10 Lambda+CD19+ 05/25/2024 4:09 PM [facility] Pathologist Location at [facility] 05/25/2024 4:09 PM [facility] Disclaimer Test performed at [facility], [address] [place] [address], [id number]. *The established laboratory minimum viability is 70%. Values below the minimum may result in the failure to find an abnormal population of cells. This test was developed and its performance characteristics determined by the Flow Cytometry Laboratory. It has not been cleared by the [place] Food and Drug Administration (FDA). The FDA has determined that such clearance or approval is not necessary. This test is used for clinical purposes. It should not be regarded as investigational or for research. This laboratory is regulated under the Clinical Laboratory Improvement Amendments of 1998 (CLIA) as a qualified to perform high complexity clinical testing. 05/25/2024 4:09 PM [facility] Embedded Images 4:09 PM [facility] Pathology/Cytolo gy BONE MARROW SPECIMEN / Unknown 05/25/2024 9:11 AM CDT 05/25/2024 2:25 PM CDT Navi Villanueva MD LAB - PATHO LOGY/CYTOLOGY ORDERABLES Performing Organization Address City/State/[facility] Co de Phone Number [facility] [address] [phone] documented in this encounter Visit Diagnoses Diagnosis Anemia, unspecified documented in this encounter
--- OUTSIDE RECORDS SUMMARY | 2024-10-04 14:35 | XMS_ITS | Referral Summary ---
Author Organization [facility] Address [address] [place] [address] Care Team Providers Care Metal Numerical Tool Programmer Name Role Phone Unavailable Primary Care Provider Unavailabl e Source Comments [facility],non-owned Affiliates and Associated Physician Practices is amultiple site organization consisting of ambulatory clinics and hospital sitesin [place], [place], [place] and [place]. This disclosure is being madepursuant to the Care Everywhere program and may not contain all information available regarding this patient. Last updated 18.[facility] [employer] Social History Tobacco Use Types Packs/Day Years Used Date Smoking Tobacco: Never Assessed Sex and Gender Information Value Date Recorded Sex Assigned at Not on file Gender Identity Not on file Sexual Orientation Not on file Plan of Treatment Not on file Xiao Shamar Personal/Family Self 1935
--- OUTSIDE RECORDS SUMMARY | 2024-10-04 14:35 | XMS_ITS | Patient Health Summary ---
Author Organization [facility] Address [address] [place] [address] Care Team Providers Care Hull Sorter Name Role Phone Unavailable Primary Care Provider Unavailabl e Note from [facility] [place],non-owned Affiliates and Associated Physician Practices is amultiple site organization consisting of ambulatory clinics and hospital sitesin [place], [place], [place] and [place]. This disclosure is being madepursuant to the Care Everywhere program and may not contain all information available regarding this patient. Last updated 18.[facility] Social History Tobacco Use Types Packs/Day Years Used Date Smoking Tobacco: Never Assessed Sex and Gender Information Value Date Recorded Sex Assigned at Not on file Gender Identity Not on file Sexual Orientation Not on file Procedures * BONE MARROW BIOPSY (STL)(Performed 05/25/2024) Performed for Illness, unspecified * FLOW CYTOMETRY BONE MARROW(Performed 05/25/2024) Performed for Anemia, unspecified * DERMATOPATHOLOGY(Performed 10/15/2022) Performed for Neoplasm of uncertain behavior of skin Results * FLOW CYTOMETRY BONE MARROW (05/25/2024 9:11 AM CDT) Case Report Flow Cytometry ?Case: [id number] ? Authorizing Provider: ??Navi Villanueva ? Collected: ? 05/25/2024 09:11 AM ? MD [place] ? [facility]Received: ?05/25/2024 02:25 PM ? Pathology Lab ? Pathologist: ? Kesha Teixeira MD ? Specimen: ?Bone Marrow ? 05/25/2024 4:09 PM [facility] Final Diagnosis Bone marrow, flow cytometric immunophenotypic analysis: - Plasma cell dyscrasia - No evidence of a monoclonal B-cell population or increase in blasts - See interpretation 05/25/2024 4:09 PM CDT [facility] Flow Cytometry Interpretation Viability: 94% B-cells: polytypic, kappa:lambda ratio 1.6:1 Blasts: 1.2% of events Plasma cells: 4.8% of events are monoclonal plasma cells that express CD38, CD138, CD20, and cytoplasmic kappa. These cells lack significant expression of CD19, CD56, CD10, and CD117. A bone marrow aspirate smear prepared from the flow cytometry specimen has been reviewed for corporate quality manager purposes. 05/25/2024 4:09 PM [facility] Flow Cytometry Results Differential Result Comment Flow Cell Count /uL 24,000 Total Viability % 94.0 Lymphocytes % 21 Dim CD45 Region % 4 Monocytes % 9 Granulocytes % 65 05/25/2024 4:09 PM [facility] Reason for test Anemia, unspecified 285.9 05/25/2024 4:09 PM [facility] Client Specimen ID # [id number] 05/25/2024 4:09 PM [facility] Number of markers 14 were performed. A-2 Flow CD10 A-3 Flow CD13 A-5 Flow CD20 A-11 Flow CD10 A-14 Flow CD117 A-15 FLOW CD138 A-1 Flow CD5 A-4 Flow CD19 A-6 Flow CD33 A-7 Flow CD34 A-8 Flow CD45 A-12 Flow CD38 A-13 Flow CD56 A-9 [place]+CD19+ A-10 Lambda+CD19+ 05/25/2024 4:09 PM [facility] Pathologist Location at [facility] 05/25/2024 4:09 PM [facility] Disclaimer Test performed at [facility], [address] [place] [address], [address]. *The established laboratory minimum viability is 70%. [...] high complexity clinical testing. 05/25/2024 4:09 PM [facility] Embedded Images 4:09 PM [facility] Pathology/Cytolo gy BONE MARROW SPECIMEN / Unknown 05/25/2024 9:11 AM CDT 05/25/2024 2:25 PM CDT Navi Villanueva MD LAB - PATHO LOGY/CYTOLOGY ORDERABLES [facility] [address] [place] [address], [place] [phone] * BONE MARROW BIOPSY (STL) (05/25/2024 9:11 AM CDT) Case Report Bone Marrow Patholog y Report ?Case: [id number] ? Authorizing Provider: ??Navi Villanueva ? Collected: ? 05/25/2024 09:11 AM ? MD [place] ? Ordering Location[facility] ? [facility] - ??Received: ?05/28/2024 12:49 PM ? Pathology Lab ? Pathologist: ? Claire Lau MD ? Specimens: ?? A) - Bone Marrow Clot ? B) - Bone Marrow Core ? 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 The bone marrow is normocellular for the patient's age and [place] with involvement by plasma cell neoplasm (up to 15% plasma cells based on immunohistochemistry). Correlation with relevant cytogenetic data and myeloma prognostic FISH is recommended. 05/31/2024 10:39 AM [facility] Peripheral Smear Description The patient's CBC performed at the time the bone marrow biopsy shows a white count of 7300/mcL, hemoglobin 11.7 g/dL, hematocrit 35.1%, MCV 94.4 fL, and a platelet count of 259,000/mcL. The white cell differential shows 51.5% neutrophils, 34.7% lymphocytes, 10.1% monocytes, 3.2% eosinophils, and 0.4% basophils. The absolute monocyte count is 700/mcL. Review of the peripheral blood smear confirms the CBC dated. The patient's white count is within normal limits. Absolute monocytosis is present. Circulating blasts or significant myeloid immaturity is not noted. The red cells are normocytic and normochromic with mild the need to poikilocytosis. Rouleaux formation is not noted. Circulating plasma cells are not identified. The platelet count and overall morphology are unremarkable. 05/31/2024 10:39 AM [facility] Bone Marrow Aspirate Differential count (200 cells): 0.5% blasts, 69% maturing myeloid precursors, 10.5% erythroid progenitors, 2.5% monocytes, 6.5% eosinophils, 3.5% lymphocytes, 7.5% plasma cells. Specimen quality: adequate. Spicules: present. Trilineage Hematopoiesis: present. Myeloid:Erythroid ratio: elevated. Myeloid Maturation: normal. Erythroid Maturation: normal. Megakaryocyte morphology: normal nuclear lobation. Storage iron (by special stain): decreased. Sideroblastic iron (by special stain): no ring sideroblasts. 05/31/2024 10:39 AM [facility] Bone Marrow Core Biopsy and Clot Section Description Specimen quality: adequate with 2.0 cm of evaluable marrow. Cellularity: 10-20% Trilineage Hematopoiesis: present. Myeloid to Erythroid ratio: decreased. Myeloid maturation and localization: normal. Erythroid maturation and localization: normal. Megakaryocyte number: normal. Megakaryocyte distribution: normal. Lymphoid aggregates: focal, small, benign in appearance. Bone trabeculae: normal. Blood vessels: normal. Congo red stain pending. Other: no evidence of granulomata, lymphoma, or extrinsic tumor cells. Plasma cells: increased and cytologically abnormal. Clot section marrow particles: numerous. Clot section morphology: similar to core biopsy. 05/31/2024 10:39 AM [facility] Flow Cytometry Summary Flow cytometry revealed 4.8% monoclonal plasma cells with expression of CD38, CD138, CD20, and cytoplasmic kappa light chain restriction and no evidence of a monoclonal B-cell population or increased blasts. 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 05/31/2024 10:39 AM [facility] Materials Received Received are 19 slide(s) and 3 blocks labeled [id number] along with a copy of the outside pathology report. [place] [address]. All original materials are returned to the referring institution, along with a copy of our final report. 05/31/2024 10:39 AM [facility] Microscopic Description Special and immunohistochemistry stains are performed on the core biopsy and/or clot section to further characterize marrow. Stains are performed in addition to flow cytometry given the cellular heterogeneity marrow and reacted with appropriate control. CD138, a plasma cell marker, highlights approximately 10-15% of total cells in the core biopsy and clot section. Large sheets of plasma cells are not identified, but plasma cells percolate through the entire interstitium. A reticulin stain of the core biopsy highlights no significant increase in reticulin fibrosis. An iron stain of the clot section highlights adequate stores. Iron stains of the clot section highlight adequate stores. 05/31/2024 10:39 AM [facility] Pathologist Location at [facility] 05/31/2024 10:39 AM [facility] Disclaimer The performance characteristics of all immunohistochemical and indirect immunofluorescence stains (if any) cited in this report were determined by the Histopathology Laboratory of [facility]. Some of these tests were developed by our own laboratory and have not been cleared or approved by the US Food and Drug Administration. The FDA does not require this test to go through premarket FDA review. These tests are used for clinical purposes. They should not be regarded as investigational or for research. This laboratory is certified under the Clinical Laboratory Improvement Amendments (CLIA) as qualified to perform high complexity clinical laboratory testing. This case has been personally reviewed and interpreted by the attending (teaching) pathologist. 05/31/2024 10:39 AM [facility] Addendum 1 This addendum is issued to report the results of a Congo red stain performed in the bone marrow core biopsy with an appropriately reactive control. The stain is negative for amyloid deposition. The diagnosis is unchanged. 05/31/2024 10:39 AM [facility] Addendum electronically signed by Claire Lau MD on 05/31/2024 at 10:39 AM Embedded Images 05/31/2024 10:39 AM [facility] Pathology/Cytology BONE MARROW SPECIMEN / Unknown 05/25/2024 9:11 AM CDT 05/28/2024 12:49 PM CDT Miscellaneous samples (specimen) BONE MARROW SPECIMEN / Unknown 05/25/2024 9:11 AM CDT 05/28/2024 12:49 PM CDT Navi Villanueva MD LAB - PATHO LOGY/CYTOLOGY ORDERABLES [facility] [address] [place] [place] [address], [facility] [phone] * DERMATOPATHOLOGY (10/15/2022 12:00 AM MEDICAL CHARGE ENTRY SPECIALIST) Case Report Dermatopathology Report ? Case: [id number] ? Authorizing Provider: ??Teena Cook, ?? Collected: ? 10/15/2022 12:00 AM ? PA-C ? Ordering Location: ? [facility] Derm[facility] Lab ?Received: ?10/18/2022 12:58 PM ? Pathologist: ? Tunde Walton MD ? Specimen: ?Skin, left malar cheek ? 3 4:23 PM [facility] Final Diagnosis Specimen A. SKIN, left malar cheek: HYPERPLASTIC (HYPERTROPHIC) ACTINIC KERATOSIS; EXTENDING TO THE BASE OF THE SPECIMEN (L57.0) (see microscopic description and comment) 3 4:23 PM [facility] DER[facility] Clinical History Basal Cell Carcinoma vs. Squamous Cell Carcinoma 3 4:23 PM [facility] DERMAT[facility] Gross Description Specimen A: Received is one formalin filled container labeled with the patient's name and designated left malar cheek. The specimen consists of a shave biopsy measuring 5x4x1 mm. Jar 0. 3 4:23 PM [facility] DERMAT[facility] Microscopic Description Specimen A. SKIN, left malar cheek: There is hyperkeratosis alternating with parakeratosis. There is epidermal hyperplasia with disorderly maturation of keratinocytes with nuclear pleomorphism confined to the lower half of the epidermis. This process extends to the base of the specimen. COMMENT: A squamous cell carcinoma cannot be ruled out. 3 4:23 PM [facility]ERMAT[facility] Disclaimer An external and internal positive and negative controls are appropriate for the histochemical, immunohistochemical and immunofluorescence stain(s) in this case (if any), except where stated explicitly. The performance characteristics of the stain(s) cited in this report were developed and its performance characteristic determined by the Dermatopathology Laboratory at [facility], directed by Dr. Patricia Walton. These tests need not be, and therefore are not, approved by the [place] Food and Drug Administration. The tests are used for clinical purposes. Billing Codes Specimen Charges Stain Charges 64182 1 3 4:23 PM [facility] DERMAT[facility] Embedded Images 3 4:23 PM [facility] D[facility] Pathology/Cytolog y TISSUE SPECIMEN FROM SKIN / Unknown 10/15/2022 10/18/2022 12:58 PM MEDICAL CHARGE ENTRY SPECIALIST Teena Cook PA-C LAB - PATHOL OGY/CYTOLOGY ORDERABLES DERMATOPATHOLOGY LABORATORY [facility] - Department of Dermatology [facility] [address] [place] [address], [address] [phone]
--- OUTSIDE RECORDS SUMMARY | 2024-10-04 14:35 | XMS_ITS | Clinical Summary ---
Author Organization [facility] [address] Address [address] [place] [address] Care Team Providers Care Power Marketer Name Role Phone Bebo Ortiz MD Primary Care Provider [phone] Allergies No known active allergies Medications amLODIPine [...] Chronic reactive otitis externa of left ear 0301/2024 Left ear pain 04/26/2023 Postnasal drip 04/26/2023 Impacted cerumen of left ear 09/28/2022 Left chronic serous otitis media 03/09/2022 Mixed conductive and sensori neural hearing loss of left ear with restricted hearing of right ear 03/02/2022 Dysfunction of both eustachian tubes 11/12/2021 Sensorineural hearing loss (SNHL) of both ears 0 11/12/2021 Surgical History Surgery Date Site/Laterality Comments TONSILLECTOMY EAR SURGERY TURP / TRANSURETHRAL INCISION / DRAINAGE PROSTATE CATARACT EXTRACTION MYRINGOTOMY W/ TUBES 03/09/2022 Left Medical History Medical History Date Comments Hypertension Stroke (HCC) Cataract Ear problems Family History Medical History Relation Name Comments No Known Problems Father No Known Problems Mother Relation Name Status Comments Father Mother Social History Tobacco Use Types [...] on file Sexual Orientation Not on file Obstetrics History Last Filed Vital Signs Vital Sign Reading [...] 01/19/2024 3:02 PM CDT Plan of Treatment Health Maintenance Due Date Last Done Comments Depression Screening 1935 Fall Risk Assessment 1935 DTaP/Tdap/Td Vaccine (1 - Tdap) 1946 Hepatitis B Screening 1953 Zoster Vaccine (1 of 2) 1986 Pneumococcal vaccine 65+ (1 of 1 - PCV) 2001 Well Visit 65+ 2001 Covid-19 Vaccine ( season) 2024, 11/18/2020 Influenza Vaccine (#1) 2024 Insurance MEDICARE RAILROAD [facility] MEDICARE RAILROAD [employer] [place] Care Teams Power Marketer Relationship Specialty Start Date End Date Bebo Ortiz MD [address] [place] [address] PCP - General Family Medicine 01/25/23
--- OUTSIDE RECORDS SUMMARY | 2024-10-04 14:35 | XMS_ITS | Encounter Summary ---
Author Organization [facility] Address [address] [facility] [place] [address] [place] [address] Care Team Providers Care House Fellow Name Role Phone Yazan Beltre MD Primary Care Provider [phone] Yeni Gerber Primary Care Provider [phone] Encounter Details Date Type Department Care Team (Late st Contact Info) Description 03/04/2013 Abstract [facility] CONVERSION [address] [place], [place] [id number] , Reyes Rivas MD Social History Tobacco Use Types Packs/Day Years Used Date Smoking Tobacco: Never Assessed Sex and Gender Information Value Date Recorded Sex Assigned at Not on file Legal Sex Male 7:30 PM CDT Gender Identity Not on file Sexual Orientation Not on file documented as of this encounter Plan of Treatment Not on file documented as of this encounter Visit Diagnoses Not on filedocumented in this encounter Care Teams House Fellow Relationship Specialty Start Date End Date Yazan Beltre MD PCP - General INTERNAL MEDICINE 11/17/18 06/09/23 Yeni Gerber PA [address] [place] [address] PCP - General 06/10/23 documented as of this encounter
--- OUTSIDE RECORDS SUMMARY | 2024-10-04 14:35 | XMS_ITS | Encounter Summary ---
Author Organization [facility] [employer] [facility] Address [address] [place] [address] Care Team Providers Care Precision Assembler Name Role Phone Unavailable Primary Care Provider Unavailabl e Encounter Details Date Type Department Care Team (Late Contact Info) Description 10/01/2024 Orders Only [facility] Oncology and Hematology [facility] [address] [place] [address] Lopez Conrad MD [address] [place], [place] [address] [address] [place] [address] Social History Tobacco Use Types Packs/Day [...] (Late Contact Info) Description 10/15/2024 4:30 PM PHOTO LAB MANAGER Telephone Check Up [facility] Oncology and Hematology [place] [address] [place] [address] Lopez Conrad MD [address] [employer] [address] [place] [address] documented as of this encounter Procedures Procedure Name Priority Date/Time Associated Diagnosis Comments PROTEIN ELECTROPHORESIS, CSF Routine 09/24/2024 4:30 PM PHOTO LAB MANAGER PROTEIN ELECTROPHORESIS, CSF Routine 09/24/2024 3:17 PM PHOTO LAB MANAGER documented in this encounter Results * PROTEIN ELECTROPHORESIS, CSF (09/24/2024 4:30 PM PHOTO LAB MANAGER) Cerebrospinal fluid CEREBROSPINAL FLUID / Unknown us Lopez Conrad MD BODY FLUIDS AND STOOLS Final Re sult * PROTEIN ELECTROPHORESIS, CSF (09/24/2024 3:17 PM PHOTO LAB MANAGER) Cerebrospinal fluid CEREBROSPINAL FLUID / Unknown us Lopez Conrad MD BODY FLUIDS AND STOOLS Final Re sult documented in this encounter Visit Diagnoses Not on filedocumented in this encounter
--- OUTSIDE RECORDS SUMMARY | 2024-10-04 14:35 | XMS_ITS | Encounter Summary ---
Author Organization [facility] [employer] [facility] Address [address] [place] [address] Care Team Providers Care Oxygraph Operator Name Role Phone Unavailable Primary Care Provider Unavailabl e Reason for Visit * Reason Comments Follow Up Encounter Details Date Type Department Care Team (Late st Contact Info) Description 10/01/2024 2:45 PM METALIZING SUPERVISOR Office Visit [facility]3] Oncology and Hematology - [place] [address] [facility] [address] [place] [address] Lopez Conrad MD [address] [facility] [address] [place] [address] Chronic anemia (Primary Dx) Social History Tobacco Use Types Packs/Day Years [...] on file documented as of this encounter Last Filed Vital Signs Vital Sign Reading Time Taken Comments Blood Pressure 143/74 10/01/2024 2:45 PM METALIZING SUPERVISOR Pulse 53 10/01/2024 2:37 PM METALIZING SUPERVISOR Temperature 36.5 ??C (97.7 ??F) 10/01/2024 2:37 PM CS T Respiratory Rate 15 10/01/2024 2:37 PM METALIZING SUPERVISOR Oxygen Saturation 96% 10/01/2024 2:37 PM METALIZING SUPERVISOR Inhaled Oxygen Concentration - - Weight 73.3 kg (161 lb 9.6 oz) 10/01/2024 2:37 P M METALIZING SUPERVISOR Height - - Body Mass Index 24.57 05/08/2024 10:25 AM CDT documented in this encounter Progress Notes * Lopez Conrad MD - 10/01/2024 3:01 PM CST HEMATOLOGY / ONCOLOGY PROGRESS NOTE Patient Identification: Name: Shamar Hagen Age: 89 y.o. Sex: male : 1935 DIAGNOSIS MGUS Normocytic anemia CURRENT TREATMENT Expectant TREATMENT HISTORY Bone marrow aspiration and biopsy was performed on May 25, 2024 SUBJECTIVE Patient came to the office for follow-up visit. He denies any excessive tiredness and fatigue. No bleeding and bruising. No bone pain. No neuropathy. Weight and appetite stable. No other new complaints. Review of system Constitutional: Patient did not mention fevers, sweats, weight and appetite stable, denies any tiredness and fatigue HEENT: Patient did not mention sinus congestion, hearing or vision problems Respiratory: Patient did not mention cough, dyspnea, wheeze Cardiovascular: Patient did not mention chest pain, exertional chest pressure/discomfort, nausea, syncope, shortness of breath GI: Patient did not mention constipation, diarrhea, dsyphagia, reflux symptoms, vomiting, melena : Patient did not mention dysuria, frequency, incontinence, urgency Integumentary system: no lymphadenopathy, sweats, flushing Musculoskeletal: Patient not mention: myalgia, arthralgia Neurological: Patient did not mention blurry or disturbed vision, numbness/weakness, dizziness Skin: No lumps, bumps or rashes. 12 point review of system was reviewed Objective: Vital signs in last 24 hours: As per nursing note Exam: HEENT: Atraumatic, external ears normal, nose normal, oropharynx moist, no pharyngeal exudates. no sinus tenderness Neck- normal range of motion, no tenderness, supple Respiratory: No respiratory distress, normal breath sounds, no rales, no wheezing Cardiovascular: Normal rate, normal rhythm, no murmurs, no gallops, no rubs GI: Soft, nondistended, normal bowel sounds, nontender, no splenomegaly, no hepatomegaly, no mass, no rebound, no guarding : No costovertebral angle tenderness Musculoskeletal: No edema, no tenderness, no deformities. Back- no tenderness Integument: Well hydrated, no rash, Digits and nails inspection normal Lymphatic: No lymphadenopathy noted Neurologic: Alert & oriented x 3, CN 2-12 normal, normal motor function, normal sensory function, no focal deficits noted Exam as above PATH LABS Labs from May 08 showed hemoglobin 11.0 creatinine 1.4 GFR 48 calcium 9.5 total protein 9.0 B12 more than 1000 iron 61 saturation 22 ferritin 82 serum protein electrophoresis showed M spike of 2.0g/dL Labs from May 25 showed WBC 7.3 hemoglobin 11.7 platelet 259,000 serum protein electrophoresis showed M spike of 2.0 g/dL IgG 2513 Labs from September 24 showed creatinine 1.3 IgG [address] [place] [address] light chain 49.6 lambda light chain 16 ratio 3.1 serum protein electrophoresis showed M spike of 2.0 g @IMAGEIMP@ Assessment: Plan: There are no active problems to display for this patient. 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 PET scan done on May 29 showed no evidence of multiple myeloma. Patient will be classified as MGUS as there is no evidence of myeloma defining events. Labs showed stable M spike of 2 g. There is slight increase in the IgG level but no other myeloma defining events other than some worsening of anemia. This could be due to renal insufficiency versus nutritional deficiencies. Anemia of chronic kidney disease. We will check iron studies and B12 level today. Will discuss thisnext week and decide about Procrit injection. Based on the result we will also decide about mild ondirected therapy. Atrial fibrillation. Stable on Eliquis. Follow-up with labs in 4 months. 10/01/2024 Lopez Conrad MD LIZING SUPERVISOR documented in this encounter Plan of Treatment Upcoming Encounters Date Type Department Care Team (Late st Contact Info) Description 10/15/2024 4:30 PM METALIZING SUPERVISOR Telephone Check Up [facility]3] Oncology and Hematology - [place] [address] [place] [address] Lopez Conrad MD [address] [facility] [address] [place] [address] Scheduled Orders Name Type Priority Associated Diagnoses Orde r Schedule FERRITIN Lab Routine Chronic anemia Expected: 10/01/2024, Expires: 10/01/2025 IRON, TIBC, AND PERCENT SATURATION Lab Routine Chronic anemia Expected: 10/01/2024, Expires: 10/01/2025 LACTATE DEHYDROGENASE Lab Routine Chronic anemia Expected: 10/01/2024, Expires: 10/01/2025 VITAMIN B12 AND FOLATE Lab Routine Chronic anemia Expected: 10/01/2024, Expires: 10/01/2025 documented as of this encounter Visit Diagnoses Diagnosis Chronic anemia- Primary Anemia, unspecified documented in this encounter
--- OUTSIDE RECORDS SUMMARY | 2024-10-04 14:35 | XMS_ITS | Encounter Summary ---
Author Organization [facility] Address [address] [facility] [place] [address] Care Team Providers Care Analytics Intern Name Role Phone Unavailable Primary Care Provider Unavailabl e Encounter Details Date Type Department Care Team (Late st Contact Info) Description 05/28/2024 Lab Requisition [facility] - Pathology Lab [address] [place] [id number] Navi Villanueva MD [address] [address] Illness, unspecified Social History Tobacco Use Types Packs/Day Years Used Date Smoking Tobacco: Never Assessed Sex and Gender Information Value Date Recorded Sex Assigned at Not on file Gender Identity Not on file Sexual Orientation Not on file documented as of this encounter Plan of Treatment Not on file documented as of this encounter Procedures Procedure Name Priority Date/Time Associated Diagnosis Comments BONE MARROW BIOPSY (STL) Routine 05/25/2024 9:11 AM CDT Illness, unspecified documented in this encounter Results * BONE MARROW BIOPSY (STL) (05/25/2024 9:11 AM CDT) Case Report Bone Marrow Patholog y Report ?Case: [id number] ? Authorizing Provider: ??Navi Villanueva ? Collected: ? 05/25/2024 09:11 AM ? MD [place] ? Ordering Location: ? [facility] - ??Received: ?05/28/2024 12:49 PM ? Pathology Lab ? Pathologist: ? Claire Lau MD ? Specimens: ?? A) - Bone Marrow Clot ? B) - Bone Marrow Core ? 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 The bone marrow is normocellular for the patient's age and [place] with involvement by plasma cell neoplasm (up to 15% plasma cells based on immunohistochemistry). Correlation with relevant cytogenetic data and myeloma prognostic FISH is recommended. 05/31/2024 10:39 AM [facility] Peripheral Smear Description The [...] overall morphology are unremarkable. 05/31/2024 10:39 AM [facility] Bone Marrow Aspirate Differential [...] stain): no ring sideroblasts. 05/31/2024 10:39 AM [facility] Bone Marrow Core Biopsy [...] similar to core biopsy. 05/31/2024 10:39 AM [facility] Flow Cytometry Summary Flow cytometry revealed 4.8% monoclonal plasma cells with expression of CD38, CD138, CD20, and cytoplasmic kappa light chain restriction and no evidence of a monoclonal B-cell population or increased blasts. [id number] 05/31/2024 10:39 AM [facility] Clinical History M-spike on serum protein electrophoresis (2 g/dL), normocytic anemia secondary to renal insufficiency. 05/31/2024 10:39 AM [facility] Materials Received Received are 19 slide(s) and 3 blocks labeled [id number] along with a copy of the outside pathology report. [place] [address]. All original materials are returned to the referring institution, along with a copy of our final report. 05/31/2024 10:39 AM [facility] Microscopic Description Special and [...] section highlight adequate stores. 05/31/2024 10:39 AM [facility] Pathologist Location at [facility] 05/31/2024 10:39 AM [facility] Disclaimer The performance characteristics of all immunohistochemical and indirect immunofluorescence stains (if any) cited in this report were determined by the Histopathology Laboratory of [facility]. Some of these tests were developed [...] the attending (teaching) pathologist. 05/31/2024 10:39 AM [facility] Addendum 1 This addendum is issued to report the results of a Congo red stain performed in the bone marrow core biopsy with an appropriately reactive control. The stain is negative for amyloid deposition. The diagnosis is unchanged. 05/31/2024 10:39 AM [facility] Addendum electronically signed by Claire Lau MD on 05/31/2024 at 10:39 AM Embedded Images 05/31/2024 10:39 AM T [facility] Pathology/Cytology BONE MARROW SPECIMEN / Unknown 05/25/2024 9:11 AM CDT 05/28/2024 12:49 PM CDT Miscellaneous samples (specimen) BONE MARROW SPECIMEN / Unknown 05/25/2024 9:11 AM CDT 05/28/2024 12:49 PM CDT Navi Villanueva MD LAB - PATHO LOGY/CYTOLOGY ORDERABLES Performing Organization Address City/State/[facility] Co de Phone Number [facility] [address] [place], [place] [address] [place] [address] documented in this encounter Visit Diagnoses Diagnosis Illness, unspecified documented in this encounter
== END 2024-10-01 15:30 | disposition home or self-care (01) ==
LOC: ANHLAB 15:30
PROVIDERS: PCP Physician Assistant Medical; Visit Provider Internal Medicine Hematology & Oncology
DX: D64.9 Anemia, unspecified (principal)
CPT/HCPCS: 36415; 82607; 82728; 82746; 83540; 83550; 83615

== ENCOUNTER 2024-12-11 07:44 | Outpatient (CLI) | payer MEDICARE, OTHER, SELFPAY ==
--- OUTSIDE RECORDS SUMMARY | 2024-12-11 07:47 | XMS_ITS | Referral Summary ---
Author Organization [facility] [address] Address [address] [place] [address] Care Team Providers Care Mail Rider Name Role Phone Bebo Ortiz MD Primary Care Provider [phone] Allergies No known active allergies Medications amLODIPine [...] - - Pulse - - Temperature 36.6 C (97.8 F) 11/15/2023 12:15 PM STER[employer] PRODUCTS PROCESSOR Respiratory Rate 18 01/19/2024 3:02 PM CDT Oxygen Saturation - - Inhaled Oxygen Concentration - - Weight 77.1 kg (170 lb) 01/19/2024 3:02 PM CDT Height 172.7 cm (5' 8 ) 01/19/2024 3:02 PM CDT Body Mass Index 25.85 01/19/2024 3:02 PM CDT Plan of Treatment Not on file Insurance MEDICARE [employer] [facility] MEDICARE [address]ROAD [facility] Care Teams Mail Rider Relationship Specialty Start Date End Date Bebo Ortiz MD [address] [place] [address] PCP - General Family Medicine 01/25/23
--- OUTSIDE RECORDS SUMMARY | 2024-12-11 07:47 | XMS_ITS | Clinical Summary ---
Author Organization [facility] Marii Whitlock Address [address] [place] [address] Care Team Providers Care Palletizer Operator Name Role Phone Unavailable Primary Care [...] Encounters Date Type Department Care Team Description 11/28/2024 External Device Data STL ABSTRACTION Provider, Abstract 11/17/2024 External Device Data STL ABSTRACTION Provider, Abstract 11/17/2024 External Device Data STL ABSTRACTION Provider, Abstract 10/31/2024 External Device Data STL ABSTRACTION Provider, Abstract 10/15/2024 4:30 PM AERONAUTICS TEACHER Telephone Check Up [facility] Oncology and Hematology - [place] [address] [place] [phone] Lopez Conrad MD Chronic anemia (Primary Dx); Plasma cell disorder 10/04/2024 External Device Data STL ABSTRACTION Provider, Abstract 10/04/2024 Orders Only [facility] Oncology and Hematology - [place] [address] [place] [address] Lopez Conrad MD 10/01/2024 2:45 PM AERONAUTICS TEACHER Office Visit [facility] Oncology and Hematology - [place] [address] [place] [phone] Lopez Conrad MD Chronic anemia (Primary Dx) 10/01/2024 Orders Only [facility] Oncology and Hematology - [place] [address] [place] [address] Lopez Conrad MD 09/27/2024 Orders Only [facility] Oncology and Hematology - [place] [address] [place] [address] Lopez Conrad MD 09/25/2024 Orders Only [facility] Oncology and Hematology - [place] [address] [place] [address] Lopez Conrad MD from Last 3 Months [...] Comments Blood Pressure 143/74 10/01/2024 2:45 PM AERONAUTICS TEACHER Pulse 53 10/01/2024 2:37 PM AERONAUTICS TEACHER Temperature 36.5 C (97.7 F) 10/01/2024 2:37 PM AERONAUTICS TEACHER Respiratory Rate 15 10/01/2024 2:37 PM AERONAUTICS TEACHER Oxygen Saturation 96% 10/01/2024 2:37 PM AERONAUTICS TEACHER Inhaled Oxygen Concentration - - Weight 73.3 kg (161 lb 9.6 oz) 10/01/2024 2:37 P M AERONAUTICS TEACHER Height 172.7 cm (5' 8 ) 05/08/2024 10:25 AM CDT Body Mass Index 24.57 05/08/2024 10:25 AM CDT Plan of Treatment Upcoming Encounters Date Type Department Care Team (Late st Contact Info) Description 02/13/2025 2:30 PM CDT Office Visit [facility] Oncology and Hematology - [place] [address] [facility] [address] [place] [address] Lopez Conrad MD [address] [facility] [address] [place] [address] Health Maintenance Due Date Last Done Comments DTAP/TDAP/TD VACCINES (1 - Tdap) 1955 PNEUMOCOCCAL VACCINE 50+ YEARS (1 of 1 - PCV) 07/11/19 86 ZOSTER VACCINE (1 of 2) 1986 RSV VACCINE (60+ or ) (1 - 1-dose 75+ series) 2011 INFLUENZA VACCINE (#1) 2024 Procedures Procedure Name Priority Date/Time Associated Diagnosis Comments LACTATE DEHYDROGENASE Routine 10/01/2024 2:18 PM AERONAUTICS TEACHER KAPPA/LAMBDA LIGHT CHAINS Routine 2024 11:38 AM AERONAUTICS TEACHER PROTEIN ELECTROPHORESIS, CSF Routine 09/24/2024 4:30 PM AERONAUTICS TEACHER PROTEIN ELECTROPHORESIS, CSF Routine 09/24/2024 3:17 PM AERONAUTICS TEACHER PROTEIN ELECTROPHORESIS, CSF Routine 09/24/2024 3:13 PM AERONAUTICS TEACHER IGG Routine 09/24/2024 2:36 PM AERONAUTICS TEACHER COMPREHENSIVE METABOLIC PANEL Routine 09/24/2024 2:05 PM AERONAUTICS TEACHER CBC WITH DIFFERENTIAL Routine 09/24/2024 1:37 PM AERONAUTICS TEACHER from Last 3 Months Results * LACTATE DEHYDROGENASE (10/01/2024 2:18 PM AERONAUTICS TEACHER) Blood Result [facility] us Lopez Conrad MD CHEMISTRY ORDERABLES Final Resu lt * KAPPA/LAMBDA, FREE LIGHT CHAINS (09/26/2024 11:38 AM AERONAUTICS TEACHER) Blood Result [facility] us Lopez Conrad MD CHEMISTRY ORDERABLES Final Resu lt * PROTEIN ELECTROPHORESIS, CSF (09/24/2024 4:30 PM AERONAUTICS TEACHER) Only the most recent of3 resultswithin the time period is included. Cerebrospinal fluid CEREBROSPINAL FLUID / Unknown Result Lalo Conrad MD BODY FLUIDS AND STOOLS Final Re sult * IGG (09/24/2024 2:36 PM AERONAUTICS TEACHER) Blood Result Lalo Conrad MD CHEMISTRY ORDERABLES Final Resu lt * COMPREHENSIVE METABOLIC PANEL (09/24/2024 2:05 PM AERONAUTICS TEACHER) Blood Result Lalo Conrad MD CHEMISTRY ORDERABLES Final Resu lt * CBC WITH DIFFERENTIAL (09/24/2024 1:37 PM AERONAUTICS TEACHER) Blood Result Lalo Conrad MD HEMATOLOGY ORDERABLES Final Res ult from Last 3 Months Insurance MEDICARE RAILROAD [facility]
--- OUTSIDE RECORDS SUMMARY | 2024-12-11 07:47 | XMS_ITS | Encounter Summary ---
Author Organization [facility] Address [address] [place] [address] Care Team Providers Care Cone Marker Name Role Phone Yazan Beltre MD Primary Care Provider [phone] Yeni Gerber Primary Care Provider [phone] Encounter Details Date Type Department Care Team (Late st Contact Info) Description 03/04/2013 Abstract [facility] CONVERSION [address] [place], [place] [phone] , Reyes Rivas MD Social History Tobacco [...] on filedocumented in this encounter Care Teams Cone Marker Relationship Specialty Start Date End Date Yazan Beltre MD PCP - General INTERNAL MEDICINE 11/17/18 06/09/23 Yeni Gerber PA [address] [place] [address] PCP - General 06/10/23 documented as of this encounter
--- OUTSIDE RECORDS SUMMARY | 2024-12-11 07:47 | XMS_ITS | Clinical Summary ---
Author Organization [facility] [address] Address [address] [place] [address] Care Team Providers Care Mixer Machine Feeder Name Role Phone Bebo Ortiz MD Primary Care Provider [phone] Allergies No known active allergies Medications amLODIPine [...] 36.6 C (97.8 F) 11/15/2023 12:15 PM REGISTERED NURSE AMBULATORY Respiratory Rate 18 01/19/2024 3:02 PM CDT [...] - Tdap) 1946 Hepatitis B Screening 1953 Pneumococcal vaccine 65+ (1 of 1 - PCV) 1986 Zoster Vaccine (1 of 2) 1986 Well Visit 65+ 2001 Covid-19 Vaccine (2023- season) 2024, 11/18/2020 Influenza Vaccine (#1) 2024 Insurance MEDICARE [place]ILROAD [place] MEDICARE [place] MEDICARE [facility]ILROAD [facility] Care Teams Mixer Machine Feeder Relationship Specialty Start Date End Date Bebo Ortiz MD [address] [place] [id number] PCP - General Family Medicine 01/25/23
--- OUTSIDE RECORDS SUMMARY | 2024-12-11 07:47 | XMS_ITS | Encounter Summary ---
Author Organization [facility] Address [address] [facility] [place] [address] Care Team Providers Care Industrial Services Worker Name Role Phone Unavailable Primary Care Provider Unavailabl e Encounter Details Date Type Department Care Team (Late st Contact Info) Description 05/25/2024 Lab Requisition [facility] - Pathology Lab [address] [place] [phone] Navi Villanueva MD [address] [address] Anemia, unspecified Social History Tobacco Use [...] 9:11 AM CDT) Case Report Flow Cytometry Case: [id number] Authorizing Provider: Navi Villanueva Collected: 05/25/2024 09:11 AM MD Wilmer Ordering Location: [facility] - Received: 05/25/2024 02:25 PM Pathology Lab Pathologist: Kesha Teixeira MD Specimen: Bone Marrow 05/25/2024 4:09 PM CDT [facility] Final Diagnosis Bone marrow, flow cytometric immunophenotypic analysis: - Plasma cell dyscrasia - No evidence of a monoclonal B-cell population or increase in blasts - See interpretation 05/25/2024 4:09 PM CDT [facility] Flow Cytometry Interpretation Viability: 94% B-cells: polytypic, kappa:lambda ratio 1.6:1 Blasts: 1.2% of events Plasma cells: 4.8% of events are monoclonal plasma cells that express CD38, CD138, CD20, and cytoplasmic kappa. These cells lack significant expression of CD19, CD56, CD10, and CD117. A bone marrow aspirate smear prepared from the flow cytometry specimen has been reviewed for production quality analyst purposes. 05/25/2024 4:09 PM [facility] PATHOLOGY LAB Flow Cytometry Results Differential Result Comment Flow Cell Count /uL 24,000 Total Viability % 94.0 Lymphocytes % 21 Dim CD45 Region % 4 Monocytes % 9 Granulocytes % 65 05/25/2024 4:09 PM [facility] PATH[facility] Reason for test Anemia, unspecified 285.9 05/25/2024 4:09 PM [facility] PATH[facility] Client Specimen ID # [id number] 05/25/2024 4:09 PM [facility] PATH[facility] Number of markers 14 were performed. A-2 Flow CD10 A-3 Flow CD13 A-5 Flow CD20 A-11 Flow CD10 A-14 Flow CD117 A-15 FLOW CD138 A-1 Flow CD5 A-4 Flow CD19 A-6 Flow CD33 A-7 Flow CD34 A-8 Flow CD45 A-12 Flow CD38 A-13 Flow CD56 A-9 Kalida+CD19+ A-10 Lambda+CD19+ 05/25/2024 4:09 PM [facility] PATH[facility] Pathologist Location at [facility] 05/25/2024 4:09 PM [facility] PATH[facility] LAB Disclaimer Test performed at [facility], [address] [place] [address], [id number]. *The established laboratory minimum viability is 70%. [...] high complexity clinical testing. 05/25/2024 4:09 PM CDT [facility] PATHOLOG[facility] LAB Embedded Images 4:09 PM CDT [facility] PATH[facility] LAB Pathology/Cytolo gy BONE MARROW SPECIMEN / Unknown 05/25/2024 9:11 AM CDT 05/25/2024 2:25 PM CDT Navi Villanueva MD LAB - PATHO LOGY/CYTOLOGY ORDERABLES [facility] PATHOLOGY LAB [address] [phone] documented in this encounter Visit Diagnoses Diagnosis Anemia, unspecified documented in this encounter
--- OUTSIDE RECORDS SUMMARY | 2024-12-11 07:47 | XMS_ITS | Encounter Summary ---
Author Organization [facility] Address [address] [place] [address] Care Team Providers Care Sales Merchandise Associate Name Role Phone Unavailable Primary Care Provider Unavailabl e Encounter Details Date Type Department Care Team (Late st Contact Info) Description 05/28/[address] [facility] - Pathology Lab [address] [place] [phone] Navi Villanueva MD [address] [address] Illness, unspecified Social History Tobacco [...] Case Report Bone Marrow Patholog y Report Case: [id number] Authorizing Provider: Navi Villanueva Collected: 05/25/2024 09:11 AM MD Wilmer Ordering Location: 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 The bone marrow is normocellular for the patient's age and [place] with involvement by plasma cell neoplasm (up to 15% plasma cells based on immunohistochemistry). Correlation with relevant cytogenetic data and myeloma prognostic FISH is recommended. 05/31/2024 10:39 AM [facility] PATH[facility] Peripheral Smear Description The [...] overall morphology are unremarkable. 05/31/2024 10:39 AM [facility] PATH[facility] Bone Marrow Aspirate Differential [...] stain): no ring sideroblasts. 05/31/2024 10:39 AM [facility] PATH[facility] Bone Marrow Core Biopsy [...] similar to core biopsy. 05/31/2024 10:39 AM [facility] PATH[facility] Flow Cytometry Summary Flow cytometry revealed 4.8% monoclonal plasma cells with expression of CD38, CD138, CD20, and cytoplasmic kappa light chain restriction and no evidence of a monoclonal B-cell population or increased blasts. 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 05/31/2024 10:39 AM [facility] PATH[facility] Materials Received Received are 19 slide(s) and 3 blocks labeled [id number] along with a copy of the outside pathology report. [place] [address]. All original materials are returned to the referring institution, along with a copy of our final report. 05/31/2024 10:39 AM [facility] PATH[facility] LAB Microscopic Description Special and [...] section highlight adequate stores. 05/31/2024 10:39 AM [facility] PATH[facility] LAB Pathologist Location at [facility] 05/31/2024 10:39 AM [facility] PATH[facility] LAB Disclaimer The performance characteristics of all immunohistochemical and indirect immunofluorescence stains (if any) cited in this report were determined by the Histopathology Laboratory of [facility]. Some of these tests were developed by [...] the attending (teaching) pathologist. 05/31/2024 10:39 AM [facility] PATH[facility] Addendum 1 This addendum is issued to report the results of a Congo red stain performed in the bone marrow core biopsy with an appropriately reactive control. The stain is negative for amyloid deposition. The diagnosis is unchanged. 05/31/2024 10:39 AM [facility] PATH[facility] LAB Addendum electronically signed by Claire Lau MD on 05/31/2024 at 10:39 AM Embedded Images 05/31/2024 10:39 AM [facility] PATH[facility] LAB Pathology/Cytology BONE MARROW SPECIMEN / Unknown 05/25/2024 9:11 AM CDT 05/28/2024 12:49 PM CDT Miscellaneous samples (specimen) BONE MARROW SPECIMEN / Unknown 05/25/2024 9:11 AM CDT 05/28/2024 12:49 PM CDT Navi Villanueva MD LAB - PATHO LOGY/CYTOLOGY ORDERABLES [facility] PATHOLOGY LAB [address] [facility] [place], [place] [id number] [place] [address] documented in this encounter Visit Diagnoses Diagnosis Illness, unspecified documented in this encounter
--- OUTSIDE RECORDS SUMMARY | 2024-12-11 07:47 | XMS_ITS | Continuity of Care Document ---
[facility] Address [address] [place] [phone] Phone Care Team Providers Care Manager Multicultural Name Role Phone Mey Ricks Unavailable Unavailable [...] Copied on Encounter Office/outpat ient Visit, [facility], [address] [place] [address] [address], [place], [place], [id number], tel:[phone] [facility] No Information 0 Millicent Mathias. [facility] , [address], [place], [address], [place]. tel:[phone] Referring Provider: Mey Brooks, [facility] [address], [place], [place], [facility]. tel:[phone] [facility], [address] [place] [address] [address], [place], [place], [id number], tel:[phone] [facility] No Information 0 Millicent Mathias. Brandon [facility] , [address], [place], [facility], [place]. tel:[phone] Referring Provider: Mey Brooks, Brandon [facility] [address], [place], [facility]. tel:[phone] [facility], [address] [place] [address] [address], [place], [place], [id number], tel:[phone] [facility] No Information 0 Millicent Mathias. Brandon [facility] , [address], [place], [address], [place]. tel:[phone] Referring Provider: Mey Brooks, Brandon [address], [place], [address]. tel:[phone] Office/outpat ient Visit, [facility], [address] [place] [address] [address], [place], [place], [id number], tel:[phone] [facility] No Information 0 Millicent Mathias. [facility] , [address], [place], [facility], [place]. tel:[phone] Office/outpat ient Visit, [facility], [address], [place], [place], [id number], [place] tel:[phone] [facility] No Information Sep-0 8-200 9 Millicent Diaz [address] [facility] , [address], [place], [facility], [place]. tel:[phone] [facility], [address] [place] [address] [address], [place], [place], [address], [place] tel:[phone] [facility] No Information May-0 6-200 9 Millicent Diaz [address] [facility] , [address], [place], [facility], [place]. tel:[phone] Referring Provider: Mey Brooks, [facility] [address], [place], [facility]. tel:[phone] [facility], [address] [place] [address] [address], [place], [place], [id number], [place] tel:[phone] [facility] No Information May-0 4-200 9 Millicent Diaz [address] [facility] , [address], [place], [facility], [place]. tel:[phone] Referring Provider: Mey Brooks, [address] [facility] [address], [place], [facility]. tel:[phone] Office/outpat ient Visit, [facility], [address] [place] [address] [address], [place], [place], [address], [place] tel:[phone] [facility] No Information José Antonio-0 2-200 9 Millicent Diaz [address] [facility] , [address], [place], [facility], [place]. tel:[phone] Referring Provider: Mey Brooks, [address] [facility] [address], [place], [facility]. tel:[phone] Office/outpat ient Visit, [facility], [address] [place] [address] [address], [place], [place], [id number], tel:[phone] [facility] No Information Aug-2 9-200 8 Millicent Mathias. [address], [address], [place], [facility], [place]. tel:[phone] [facility], [address] [place] [address] [address], [place], [place], [address], [place] tel:[phone] [facility] No Information Dec-2 5-200 8 Millicent Mathias. [address] , [address], [place], [facility], . tel:[phone] [facility], [address] [place] [address] [address], [place], [place], [id number], tel:[phone] [facility] No Information Mar-0 4-200 8 Millicent Mathias. [address] , [address], [place], [facility], [place]. tel:[phone] Referring Provider: Mey Brooks, [address], [place], [facility]. tel:[phone] [facility], [address] [place] [address] [address], [place], [place], [address], [place] tel:[phone] [facility] No Information Mar-0 3-200 8 Millicent Mathias. [address] , [address], [place], [facility], [place]. tel:[phone] Referring Provider: Mey Brooks, [address], [place], [facility]. tel:[phone] Office/outpat ient Visit, [facility], [address] [place] [address] [address], [place], [place], [id number], [place] tel:[phone] [facility] No Information 7 Millicent Diaz [address] [facility] , [address], [place], [facility], . tel:[phone] Referring Provider: Brandon [facility] [address], [place], [facility]. tel:[phone] Office/outpat ient Visit, [facility], [address] [place] [address] [address], [place], [place], [id number], tel:[phone] [facility] No Information 7 Millicent Diaz [address] [facility] , [address], [place], [facility], . tel:[phone] Office/outpat ient Visit, [facility], [address] [place] [address] [address], [place], [place], [address], tel:[phone] [facility] No Information 7 Millicent Diaz [address] [facility] , [address], [place], [facility], . tel:[phone] Family History Family Member Type Diagnosis Age At Onset No Information Payers Payer name Insurance type Covered republican ID Authoriza tion(s) Medicare RR MB [id number] Social History Type Description Quantity Date Captured [...]
--- OUTSIDE RECORDS SUMMARY | 2024-12-11 07:47 | XMS_ITS | Clinical Summary ---
Author Organization [facility] Address [address] [place] [address] Care Team Providers Care Box Spring Maker Name Role Phone Yeni Gerber Primary Care Provider [phone] Allergies No known active allergies Medications latanoprost [...] 66 03/27/2024 12:30 AM CDT Temperature 36.6 C (97.9 F) 03/26/2024 9:00 PM CDT Respiratory Rate 18 03/27/2024 12:30 AM CDT [...] 07/27/2021, 11/18/2020 Influenza Adult (#1) 2024 Meningococcal B Vaccine Aged Out No l onger eligible based on patient's age to complete this topic Meningococcal Vaccine Aged Out No tati romulo eligible based on patient's age to complete this topic RSV Immunizations Under 20 Months Aged Out No longer eligible b ased on patient's age to complete this topic Medical Devices Implanted Type Area Mortgage Processing Clerk Device Identifier Shelf Expiration Date Model / Serial / Lot Tube Ventilation 1.02mm 2.7mm [employer] Ear Fluoroplastic - [id number] Implanted:Qty: 1 on 03/09/2022 by Deepak Richards MD at [facility] Tube Implant Left: Ear [employer] 04/11/2031 [id number] / / [id number] Insurance [employer] Advance Directives * Full Code (Latest Code Status on File) Date Activated Date Inactivated Comments 03/09/2022 10:15 AM 03/09/2022 12:43 PM Care Teams Box Spring Maker Relationship Specialty Start Date End Date Yeni Gerber PA [address] [place] [id number] PCP - General 06/10/23
--- OUTSIDE RECORDS SUMMARY | 2024-12-11 07:47 | XMS_ITS | Clinical Summary ---
Author Organization [facility] Address [address] [place] [address] Care Team Providers Care Telephone Betting Clerk Name Role Phone Unavailable Primary Care Provider Unavailabl e Source Comments [facility],non-owned Affiliates and Associated Physician Practices is amultiple site organization consisting of ambulatory clinics and hospital sitesin [place], [place], [place] and [place]. This disclosure is being madepursuant to the Care Everywhere program and may not contain all information available regarding this patient. Last updated 18.[facility] Social History Tobacco Use Types Packs/Day Years Used Date Smoking Tobacco: Never Assessed Sex and Gender Information Value Date Recorded Sex Assigned at Not on file Gender Identity Not on file Sexual Orientation Not on file Plan of Treatment Health Maintenance Due Date Last Done Comments MEDICARE AWV 12 MONTHS 1935 COVID-19 VACCINE (#1) 1941 [...] to complete this topic MENINGOCOCCAL (Group B) VACC INE SHARED DECISION-MAKING Aged Out No longer eligibl e based on patient's age to complete this topic MENINGOCOCCAL GROUPS A/C/Y/W VACCINE Aged Out No longer eligible b ased on patient's age to complete this topic Shamar Hagen Personal/Family Self 1935
[2025-01-07 12:44] VITALS: BMI 24.3
--- NOTE | 2025-01-07 12:44 | P.SLEEP_ITS ---
Sleep Study Date of Study: 12/11/24 Ordering Provider: JAMAL Umana Interpreting Physician: Carlie Rosen DO Sleep Study Type: CPAP Titration Height: 1.73 m Weight: 72.575 kg Body Mass Index: 24.3 Neck Circumference (inches): 14 [place]: 4 Reason for Sleep Study Snap HST on 07/22/2024 that showed overall AHI of 34.8 with CASPER of 14.4. Sleep History The patient is an 89-year-old male that had a sleep study ordered by the pulmonary group to find an optimal CPAP pressure setting to resolve his sleep apnea. The patient rarely awakens from sleep short of breath. He rarely awakens at night with heartburn, belching or cough. He occasionally snores and is occasionally loud enough that others complain. He occasionally has trouble sleeping when he has a cold. He rarely wakes up gasping for air throughout the night. He rarely has breathing problems at night observed by himself or others. He denies sweating excessively at night. He rarely has heart palpitations or irregular heartbeats during the night. He rarely falls asleep during the day but never while driving. He rarely experiences loss of muscle tone when extremely emotional. He denies having trouble at school or work due to slee piness. He rarely feels unable to move while waking up or falling asleep. He denies hypnagogic/ hypnopompic hallucinations. He denies feeling afraid of going to sleep. He rarely has nightmares. He rarely remembers his dreams. He rarely has thoughts racing through his mind. He denies feeling sad or depressed. He rarely has anxiety. He rarely has muscular tension. He denies noticing parts of his body jerk. He rarely kicks during the night. He rarely has crawling and aching feelings in his legs and rarely has leg pain during the night. He rarely grinds his teeth during sleep and rarely awakens with morning jaw pain. He is rarely bothered by pain during the day and occasionally awakened by pain during the night. He rarely wakes up feeling stiff in the morning. He rarely wakes up with sore or achy muscles. He rarely wakes up with pain in the neck, spine or other joints. He goes to bed at 11:00 p.m. on both weekdays and weekends. It takes him 15-20 minutes to fall asleep. He wakes up 3-4 times throughout the night for unknown reasons and it takes about 20 minutes to fall back asleep. He wakes up at 7:30 a.m. every morning. He typically gets 4-5 hours of sleep per night. He will stay in bed for 15 minutes after waking up in the morning. He denies consuming any caffeinated beverages within 2 hours of bedtime. He denies engaging in physical exercise before bedtime. He will read watch television before falling asleep. He will take naps in the afternoon or the evening and they are refreshing. He only consumes de-caffeinated beverages. He denies tobacco, alcohol and recreational drug use. [facility] Past Medical History Medical History Elevated PSA, less than 10 ng/ml Dr. Sanchez MG (monoclonal gammopathy of unknown significance) (~04/2024) Dr. Conrad Chronic kidney disease Cerebellar stroke syndrome Mid back pain on left side Anemia Numbness in feet Vitamin B12 deficiency Insomnia TIA (transient ischemic attack) 2019 Essential hypertension Hypercholesteremia Lightheadedness Right bundle branch block Sinus bradycardia Surgical History Surgical History S/P TURP History of ear surgery History of tonsillectomy Family History Family History Mother Hypertension Social History Social History Social History: Patient lives with his daughter Laurita Hagen who is designated as his emergency contact. He has 3 other children. He is . 01/04/25 very confident with medical forms Smoking packs per day: 0 Smoking cigarettes per day: 0.0 Smoking status: Never smoker Second hand tobacco smoke exposure: No Alcohol intake: current Drinks per week: 1 Alcohol use details: rarely, monthly Substance use: never Substance use type: does not use Do You Feel Safe in your Home?: Yes Lack of Transportation: No Lack of Food: Never True Current Housing: I Have Housing Concerned About Future Housing: No Difficulty Paying Gas/Electric Bills: No Difficulty Paying for Meds: No Currently Unemployed: No Education: Grade School Difficulty w/ Childcare or Family Care: No Living arrangements: alone Additional living arrangements comments: Lives with his daughter Occupation/Education: retired 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 Gender identity (if verbalized by the patient): Male Spiritual care concerns: No Medications Home Medications ?Medication ?Instructions ?Recorded ?Confirmed ?Type latanoprost 0.005 % eye drops 1 drp ophthalmic (eye) DAILY 02/27/24 01/07/25 History hydralazine 25 mg tablet 25 mg PO BID 05/24/24 01/07/25 History mecobalamin (vitamin B12) 1,000 1,000 mcg sublingual .every other 10/17/24 01/07/25 History mcg disintegrating day tablet,sublingual rosuvastatin 20 mg tablet 20 mg PO QAM #90 tabs 11/13/24 01/07/25 Rx omeprazole 40 mg capsule,delayed 40 mg PO DAILY laryngopharyngeal 11/19/24 01/07/25 Rx release reflux #30 caps zolpidem 5 mg tablet 5 mg PO QHS #30 tabs 11/19/24 01/07/25 Rx ofloxacin 0.3 % eye drops 4 drp otic (ear) TID otitis media 12/10/24 01/07/25 Rx left #10 mL apixaban 5 mg tablet (Eliquis) 5 mg PO Q12HR #60 tabs 12/17/24 01/07/25 Rx losartan 100 mg tablet See Rx Instructions .Route 01/02/25 01/07/25 Rx .COMPLEX #90 tabs amlodipine 10 mg tablet 10 mg PO DAILY #90 tabs 01/07/25 01/07/25 Rx permethrin 5 % topical cream 1 applic topical Q14D 2 doses #60 01/07/25 01/07/25 Rx grams vitamins A,C,J-gnns-tokpmx 2,148 1 tablet PO DAILY #90 tabs 01/07/25 01/07/25 Rx mcg-113 mg-45 mg-17.4 mg tablet (PreserVision AREDS) Sleep Procedure A full night CPAP Titration using the [employer] multi-channel system recorded the standard physiologic parameters including EEG, EOG, submentalis EMG, anterior tibialis EMG, EKG, body position, nasal and oral airflow using nasal pressure sensor and thermistor.? Respiratory parameters of chest and abdominal movements were recorded with Respiratory Inductance Plethysmography belts. Oxygen saturation was recorded by pulse oximetry. Video monitoring was also performed. Sleep stages, periodic limb movements, and EEG arousals were scored in 30 second epochs according to the criteria of the AASM Scoring Manual. The Apnea-Hypopnea Index was calculated using [facility] guidelines for definition of hypopnea with 4% O2 desaturations while scoring respiratory events. Sleep Architecture The total recording time was 440.4 minutes.? The total sleep time was 346.0 minutes. Sleep latency was 0.9 minutes. REM latency was 221.5 minutes. Sleep efficiency was 78.6%. The patient had 59 awakenings for an awakening index of 10.2. Wake after Sleep Onset time was 93.5 minutes. The patient spent 32.0 minutes, 9.2% of total sleep time in Stage N1. The patient spent 269.5 minutes, 77.9% in Stage N2. The patient spent 5.5 minutes, 1.6% in Stage N3. The patient spent 39.0 minutes, 11.3% in Stage REM. Respiratory Analysis The patient had 45 hypopneas, 46 obstructive apneas and 4 central apneas for an overall Apnea Hypopnea Index of 16.5 events per hour. The REM Apnea Hypopnea Index was 0. The NREM Apnea Hypopnea Index was 18.6. The patient had a Central Apnea Hypopnea Index of 0.7. There was no evidence of Boby-Hannah Respirations. The patient was started on CPAP 5 cm H2O with EPR of 2 and titrated to CPAP 12 cm H2O with EPR of 2 due to obstructive apneas and hypopneas. The patient was able to fall asleep starting on CPAP 5 cm H2O with EPR of 2. The patient was able to achieve REM sleep starting on CPAP 11 cm H2O EPR of 2. The patient was able to achieve a residual AHI less than 5 with both NREM and REM sleep on the final pressure setting. On CPAP 12 cm H2O with EPR of 2, the patient spent 154 minutes in NREM and 38 minutes in REM with 1 obstructive apnea, resulting in an AHi of 0.3. The patient had a sleep efficiency of 88.3% on this pressure setting. Arousals There were 122 total arousals for an arousal index of 21.2. There were 51 spo ntaneous arousals for an index of 8.8. ?There were 44 arousals due to respiratory events for an index of 7.6. There were 13 arousals due to periodic limb movements for an index of 2.3.? There were 19 arousals due to isolated limb movements for an index of 3.3. Periodic Limb Movements The patient had 82 isolated limb movements with an index of 14.2. The patient had 86 periodic limb movements with index of 14.9. Patient had a total of 168 limb movements with a total limb movement index of 29.1. Oximetry Data The patient had an average oxygen saturation of 94.0% in sleep with a minimum oxygen saturation of 87.0% and a maximum oxygen saturation of 97.0%. The patient had 69 oxygen desaturations that were 4% or greater resulting in an Oxygen Desaturation Index of 12.0.? The patient spent 0.6 minutes, 0.1% of total sleep time with an oxygen saturation below 88%. Snoring Profile Mild snoring was present intermittently in the beginning of the study. The patient's snoring resolved once he was titrated to 8 cm H2O. Cardiac Profile The EKG showed normal sinus rhythm. No arrhythmias or premature beats were seen. The patient had an average pulse rate of 54.2 bpm with a minimum pulse rate of 49.0 bpm and a maximum pulse rate of 61.0 bpm. EEG Profile No signs of seizure activity seen. Assessment and Plan Assessment and Plan (1) PRASANTH (obstructive sleep apnea): Code(s): G47.33 - Obstructive sleep apnea (adult) (pediatric) Status: Acute Assessment and Plan: The patient was started on CPAP 5 cm H2O with EPR of 2 and titrated to CPAP 12 cm H2O with EPR of 2 due to obstructive apneas and hypopneas. The patient's sleep apnea resolved on the final pressure setting. I recommend that the patient be prescribed CPAP 12 cm H2O with EPR of 2, size medium Resmed AirFit F20 full face mask, CPAP filters/tubing and heated humidity. This should be used with all episodes of sleep.? Compliance should be reviewed within 31-90 days of starting therapy for usage greater than 4 hours per night greater than 70% of the nights. The patient should be asked about symptoms such as?excessive daytime sleepiness, quality of sleep, decreased nocturia, increased?mental functioning such as memory, mood, and concentration. Data The data obtained during this sleep study is adequate for interpretation. Certification This sleep study has been reviewed by a board certified sleep medicine physician.
== END 2024-12-12 07:35 | disposition home or self-care (01) ==
LOC: ANHCSM 07:45
PROVIDERS: PCP Physician Assistant Medical; Visit Provider Physician Assistant
DX: G47.33 Obstructive sleep apnea (adult) (pediatric) (principal)
CPT/HCPCS: 95811

== ENCOUNTER 2025-06-26 13:31 | Outpatient (CLI) | payer MEDICARE, OTHER, SELFPAY ==
--- NOTE | ~2025-06-26 | CT_ITS ---
EXAMINATION: CT IAC/mastoids BI wo con DATE: 06/26/2025 13:45 INDICATION: Chronic mastoiditis, left ear. TECHNIQUE: Computed tomography (CT) of the temporal bones was performed without intravenous contrast. Automated exposure control and iterative reconstruction technique were employed. The dose-length product was 245.61 mGy-cm. COMPARISON: CT 03/12/2019 FINDINGS: RIGHT TEMPORAL BONE: The internal auditory canal, cochlea, vestibule, semicircular canals, and vestibular aqueduct are normal. There is a high riding jugular bulb. The carotid canal is normal. The facial nerve course is normal. The ossicles, Prussak space, scutum, tympanic membrane, and external artery canal are normal. There is a trace right mastoid effusion. LEFT TEMPORAL BONE: The internal auditory canal, cochlea, vestibule, semicircular canals, vestibular aqueduct, carotid canal, jugular bulb, facial nerve course, ossicles, Prussak space, and scutum are normal. There is thickening of the tympanic membrane. There is cerumen in left external auditory canal. The mastoid air cells are hypoplastic. There is a small left mastoid effusion. IMPRESSION: 1. Thickening of left tympanic membrane. 2. Hypoplastic left mastoid air cells with small left mastoid effusion. Reviewed, dictated and finalized at location E.
== END 2025-06-26 13:32 | disposition home or self-care (01) ==
PROVIDERS: PCP Physician Assistant Medical; Visit Provider Otolaryngology
DX: H70.12 Chronic mastoiditis, left ear (principal); H90.6 Mixed conductive and sensorineural hearing loss, bilateral; H92.02 Otalgia, left ear; H69.92 Unspecified Eustachian tube disorder, left ear; H74.8X2 Other specified disorders of left middle ear and mastoid
CPT/HCPCS: 70480

== ENCOUNTER 2025-08-22 09:09 | Outpatient (CLI) | payer MEDICARE, OTHER, SELFPAY ==
--- NOTE | ~2025-08-22 | PE_ITS ---
EXAMINATION: PET skull to mid thigh DATE: 08/22/2025 11:09 INDICATION: Plasma cell disorder TECHNIQUE: Blood glucose level was 86 mg/dL. 10.218 mCi of 18-fluorodeoxyglucose (18-FDG) was administered i.v. Low dose computed tomography (CT) images were acquired from the base of the brain to the proximal thighs for attenuation correction and anatomic localization. Positron emission tomography (PET) images were acquired in the same distribution beginning 51 minutes after injection. Images including fused PET/CT images were reconstructed in axial, coronal, and sagittal planes. Automated exposure control technique was employed. The dose- length product was 756.08mGy-cm. COMPARISON: PET/CT dated 05/29/2024 FINDINGS: Head/neck: There is symmetric increased activity in the oral cavity, palatine tonsils and ocular muscles without CT correlate, likely physiologic. No pathologically enlarged cervical lymphadenopathy or suspicious foci of increased FDG uptake in the visualized head or neck. Chest: Calcified nodules in the left lower lobe along with calcified bilateral hilar lymph nodes consistent with old granulomatous disease. No other suspicious pulmonary nodules or pleural effusion. Heart size is normal. Atherosclerotic coronary artery calcifications. Aortic valve and mitral annular calcifications. No pericardial effusion. Thoracic aorta is normal in caliber. No pathologically enlarged or FDG avid thoracic lymphadenopathy. Abdomen/pelvis/proximal thighs: Physiologic renal accumulation and excretion of FDG activity in the kidneys, bladder and along portions of ureters. Prostatomegaly measuring 5.1 x 4.3 cm. Normal degree and heterogenous pattern of increased uptake throughout the liver without radiologic correlate or dominant FDG avid lesion. There is a photopenic defect associated with a 2.0 cm hepatic cyst. There are several small hepatic and splenic calcific lesions consistent with old granulomatous disease. The gallbladder, pancreas and bilateral adrenal glands are normal. Mild uptake scattered throughout the bowels without radiologic correlate, also likely physiologic. There is mild to moderate diverticulosis along the descending and sigmoid colon without adjacent from trace stranding to suggest diverticulitis. No other abnormal foci of increased FDG uptake or pathologically enlarged lymphadenopathy in the abdomen, pelvis or proximal thighs. Musculoskeletal: Moderate to severe cervical and lumbar spondylosis. No suspicious lytic, blastic or abnormally FDG avid bone lesions. IMPRESSION: 1. No FDG avid lesions suspicious for primary malignancy or metastatic disease. 2. Prostatomegaly. Reviewed, dictated and finalized at location A. [employer]
== END 2025-08-22 09:10 | disposition home or self-care (01) ==
PROVIDERS: PCP Physician Assistant Medical; Visit Provider Internal Medicine Hematology & Oncology
DX: C90.00 Multiple myeloma not having achieved remission (principal); D72.9 Disorder of white blood cells, unspecified
CPT/HCPCS: 78815; A9552